=== PATIENT | female | born 1995 | race Caucasian/White ===

== ENCOUNTER 2017-01-27 23:56 | Emergency (ER) | payer SELFPAY ==
[~2017-01-27] VITALS: Ht 160 cm; Wt 72.6 kg
[2017-01-28] MEDS ORDERED: IV NORMAL SALINE 1000ML BAG 1,000 ML IV ONE (00:15)
[2017-01-28] MEDS ORDERED: ONDANSETRON PF 4 MG/2 ML VIAL. IV ONE (00:15)
--- NOTE | 2017-01-28 00:19 | PHYS DOC ---
Adult General Chief Complaint Chief Complaint: NAUSEA/VOMITING/DIARRHA HPI HPI Patient is a 22 year old female whose only past medical history she states to be asthma was in her usual state of health until last night when she went out drinking and now presents with the nausea and vomiting and feeling dehydrated. No sick contacts. No fevers, rashes, recent illnesses. Review of Systems Review of Systems Constitutional: Denies fever or chills [] HENT: Denies nasal congestion or sore throat [] Respiratory: Denies cough or shortness of breath [] Cardiovascular: No chest pain GI: Denies abdominal pain. He is to nausea and nonbloody vomitus : Denies dysuria or hematuria [] Musculoskeletal: Denies back pain or joint pain [] Integument: Denies rash or skin lesions [] Neurologic: Denies headache, focal weakness or sensory changes [] Current Medications Current Medications Current Medications Medications (Trade) Dose Ordered Sig/Jack Start Time Stop Time Status Last Admin Dose Admin Ondansetron HCl (Zofran) 4 mg 1X ONCE 01/28/17 00:15 01/28/17 00:16 DC 01/28/17 00:20 4 MG Sodium Chloride 1,000 ml @ 1,000 mls/hr 1X ONCE 01/28/17 00:15 01/28/17 01:14 DC 01/28/17 00:20 1,000 MLS/HR Allergies Allergies Allergies Coded Allergies Type Severity Reaction Last Updated Verified No Known Drug Allergies 01/28/17 No Physical Exam Physical Exam Constitutional: Well developed, well nourished, mild distress, non-toxic appearance. [] HENT: Normocephalic, atraumatic, oropharynx dry, no oral exudates, nose normal. [] Eyes: EOMI, conjunctiva normal, no discharge. [] Neck: Normal range of motion, trachea midline Cardiovascular:Heart rate regular rhythm, no murmur, normal perfusion, no vascular insufficiency Lungs & Thorax: Bilateral breath sounds clear to auscultation, no tachypnea Abdomen: Bowel sounds normal, soft, no tenderness, no masses, no pulsatile masses. [] Skin: Warm, dry, no erythema, no rash. [] Back: Normal range of motion. Extremities: No tenderness, ROM intact, no edema. [] Neurologic: Alert and oriented X 3, normal motor function, no focal deficits noted. [] Psychologic: Affect normal, judgement normal, mood normal. [] Current Patient Data Vital Signs Vital Signs Date Time Temp Pulse Resp B/P (MAP) Pulse Ox O2 Delivery O2 Flow Rate FiO2 01/28/17 00:11 98.3 76 18 143/85 (104) 100 Room Air 98.3 Lab Values Laboratory Tests Test 01/28/17 00:27 POC Hemoglobin 14.3 g/dL (12-15) POC Hematocrit 42 % (36-40) H POC Sodium 140 mmol/L (135-145) POC Potassium 3.4 mmol/L (3.5-5.0) L POC Chloride 105 mmol/L (98-110) POC Total CO2 20 mmol/L (23-32) L Anion Gap 20 mmol/L (6-14) H POC Blood Urea Nitrogen 11 mg/dL (8-26) POC Creatinine 0.6 mg/dL (0.5-1.4) Glucose Level 149 mg/dL (70-99) H POC Ionized Calcium (Tova) 1.16 mmol/L (1.13-1.32) Laboratory Tests 01/28/17 00:27 EKG EKG [] Radiology/Procedures Radiology/Procedures [] Course & Med Decision Making Course & Med Decision Making Pertinent Labs and Imaging studies reviewed. (See chart for details) discussed with the patient [id number] patient resting comfortably, no distress, no vomiting. Patient states she feels improved and is ready to go home. [] Dragon Disclaimer Dragon Disclaimer This electronic medical record was generated, in whole or in part, using a voice recognition dictation system. Departure Departure Impression: Primary Impression: Vomiting Additional Impression: Dehydration Disposition: 01 HOME, SELF-CARE Condition: STABLE Patient Instructions: Dehydration, Adult, [id number], Nausea and Vomiting Additional Instructions: if your symptoms worsen or new concerning symptoms please see your doctor immediately or return to the ED for further evaluation. Scripts Ondansetron Hcl (ZOFRAN) 4 Mg Tablet 1 TAB PO Q8HRS, #8 TAB Prov: Yeyo BARLOW MD 01/28/17 Problem Qualifiers Yeyo BARLOW MD Jan 28, 2017 00:19
[2017-01-28 00:47] LABS: POTASSIUM ISTAT 3.4 mmol/L (3.5-5.0)
[2017-01-28 01:08] VITALS: BP 119/86
[2017-01-28] MEDS ORDERED: ONDA4TAB7 PO (01:31)
== END 2017-01-28 01:35 | disposition home or self-care (01) ==
LOC: ER 23:56
DX: E86.0 Dehydration (principal); R11.2 Nausea with vomiting, unspecified
CPT/HCPCS: 36415; 80047; 96361; 96374; 99284; J2405; J7030

== ENCOUNTER 2017-10-02 01:51 | Emergency (ER) | payer OTHER ==
[2017-10-02] MEDS: IV NORMAL SALINE 500ML BAG 500 ML IV (03:43)
[2017-10-02] MEDS: diphenhydrAMINE 50 MG/ML VIAL IVP (03:59)
[2017-10-02] MEDS: PROCHLORPERAZINE 10 MG/2 ML VIAL. IV (03:59)
[2017-10-02] MEDS: DEXAMETHASONE SOD PHOS 4 MG/ML VIAL IV (03:59)
== END 2017-10-02 04:59 | disposition home or self-care (01) ==
LOC: ER 01:51
DX: G43.909 Migraine, unspecified, not intractable, without status migrainosus (principal); J45.909 Unspecified asthma, uncomplicated; F12.10 Cannabis abuse, uncomplicated; F10.10 Alcohol abuse, uncomplicated
CPT/HCPCS: 96361; 96374; 96375; 99284-25; J0780; J1100; J1200; J7040

== ENCOUNTER 2017-10-20 20:33 | Emergency (ER) | payer OTHER ==
[2017-10-20 21:19] LABS: ADD MAN DIFF? NO
[2017-10-20 21:21] LABS: BASO % 1 % (0-3); BILIRUBIN,URINE NEGATIVE (NEG); CLARITY,URINE TURBID; COLOR,URINE YELLOW; EOS # 0.1 x10^3/uL (0.0-0.7); EOS % 2 % (0-3); GLUCOSE,URINE NEGATIVE (NEG); HEMATOCRIT 35.6 % (36.0-47.0); HEMOGLOBIN 12.3 g/dL (12.0-15.5); LYMPH # 1.3 x10^3/uL (1.0-4.8); LYMPH % 24 % (24-48); MEAN CORPUSCULAR HEMOGLOBIN 31 pg (25-35); MEAN CORPUSCULAR HGB CONC 35 g/dL (31-37); MEAN CORPUSCULAR VOLUME 88 fL (79-100); MONO # 0.6 x10^3/uL (0.0-1.1); MONO % 11 % (0-9); NEUT # 3.2 x10^3uL (1.8-7.7); NEUT % 62 % (31-73); NITRITE,URINE NEGATIVE (NEG); PLATELET COUNT 268 x10^3/uL (140-400); PROTEIN,URINE NEGATIVE (NEG-TRACE); RED BLOOD COUNT 4.03 x10^6/uL (3.50-5.40); RED CELL DISTRIBUTION WIDTH 13.3 % (11.5-14.5); UROBILINOGEN,URINE 0.2 mg/dL (0.2 mg/dL); WHITE BLOOD COUNT 5.2 x10^3/uL (4.0-11.0)
[2017-10-20 21:34] LABS: ANION GAP 6 (6-14); BLOOD UREA NITROGEN 12 mg/dL (7-20); BUN/CREATININE RATIO 13 (6-20); CALCIUM 9.2 mg/dL (8.5-10.1); CARBON DIOXIDE 27 mmol/L (21-32); CHLORIDE 107 mmol/L (98-107); CREATININE 0.9 mg/dL (0.6-1.0); GLUCOSE 109 mg/dL (70-99); POTASSIUM 3.6 mmol/L (3.5-5.1); SODIUM 140 mmol/L (136-145)
[2017-10-20 21:40] LABS: ALBUMIN 3.6 g/dL (3.4-5.0); ALK PHOS 75 U/L (46-116); ALT (SGPT) 38 U/L (14-59); AST (SGOT) 27 U/L (15-37); LIPASE 106 U/L (73-393); TOTAL BILIRUBIN 0.3 mg/dL (0.2-1.0); TOTAL PROTEIN 7.1 g/dL (6.4-8.2)
[2017-10-20 21:48] LABS: AMORPHOUS SEDIMENT,UR PRESENT /HPF; BACTERIA,URINE 0 /HPF (0-FEW); RBC,URINE 0 /HPF (0-2); SQUAMOUS EPITHELIAL CELL,UR MOD /LPF; WBC,URINE 0 /HPF (0-4)
[2017-10-20] MEDS: ONDANSETRON PF 4 MG/2 ML VIAL. IV (22:15)
[2017-10-20] MEDS: IV NORMAL SALINE 1000ML BAG 1,000 ML IV (22:15)
[2017-10-23 14:34] LABS: CHLAMYDIA PROBE Negative (Negative); GC PROBE Negative (Negative)
== END 2017-10-21 00:05 | disposition home or self-care (01) ==
LOC: ER 10-21 00:05
DX: O03.9 Complete or unspecified spontaneous abortion without complication (principal); O99.511 Diseases of the respiratory system complicating pregnancy, first trimester; O99.321 Drug use complicating pregnancy, first trimester; F12.10 Cannabis abuse, uncomplicated; Z3A.01 Less than 8 weeks gestation of pregnancy
CPT/HCPCS: 36415; 76801; 80053; 81001; 83690; 84702; 85025; 87491; 87591; 96361; 96374; 99285-25; J2405; J7030; Q0111

== ENCOUNTER 2017-11-20 01:33 | Emergency (ER) | payer OTHER ==
[2017-11-20 02:07] LABS: NEG OBC UR NEG; POS OBC UR POS; U PREG PATIENT NEGATIVE (NEG)
[2017-11-20] MEDS ORDERED: diphenhydrAMINE 50 MG/ML VIAL IVP (02:30)
[2017-11-20] MEDS ORDERED: IV NORMAL SALINE 1000ML BAG 1,000 ML IV (02:30)
[2017-11-20] MEDS ORDERED: KETOROLAC 15 MG/ML VIAL. IV (02:30)
[2017-11-20] MEDS ORDERED: PROCHLORPERAZINE 10 MG/2 ML VIAL. IV (02:30)
== END 2017-11-20 03:35 | disposition home or self-care (01) ==
LOC: ER 01:33
DX: G43.909 Migraine, unspecified, not intractable, without status migrainosus (principal); R11.10 Vomiting, unspecified; J45.909 Unspecified asthma, uncomplicated
CPT/HCPCS: 81025; 99283

== ENCOUNTER 2018-01-07 12:38 | Emergency (ER) | payer OTHER ==
[2018-01-07 13:30] LABS: ADD MAN DIFF? NO
[2018-01-07] MEDS: PROCHLORPERAZINE 10 MG/2 ML VIAL. IV (13:30)
[2018-01-07] MEDS: IV NORMAL SALINE 1000ML BAG 1,000 ML IV (13:30)
[2018-01-07] MEDS: ONDANSETRON PF 4 MG/2 ML VIAL. IV (13:30)
[2018-01-07 13:32] LABS: URINE HCG POC HCG NEGATIVE (Negative)
[2018-01-07 13:37] LABS: BASO % 0 % (0-3); EOS % 0 % (0-3); HEMATOCRIT 43.7 % (36.0-47.0); HEMOGLOBIN 14.7 g/dL (12.0-15.5); LYMPH # 1.5 x10^3/uL (1.0-4.8); LYMPH % 10 % (24-48); MEAN CORPUSCULAR HEMOGLOBIN 29 pg (25-35); MEAN CORPUSCULAR HGB CONC 34 g/dL (31-37); MEAN CORPUSCULAR VOLUME 87 fL (79-100); MONO % 7 % (0-9); NEUT # 11.7 x10^3uL (1.8-7.7); NEUT % 83 % (31-73); PLATELET COUNT 360 x10^3/uL (140-400); RED BLOOD COUNT 5.01 x10^6/uL (3.50-5.40); RED CELL DISTRIBUTION WIDTH 13.7 % (11.5-14.5); WHITE BLOOD COUNT 14.2 x10^3/uL (4.0-11.0)
[2018-01-07 13:40] LABS: ANION GAP 11 (6-14); BLOOD UREA NITROGEN 12 mg/dL (7-20); BUN/CREATININE RATIO 11 (6-20); CALCIUM 9.3 mg/dL (8.5-10.1); CARBON DIOXIDE 27 mmol/L (21-32); CHLORIDE 97 mmol/L (98-107); CREATININE 1.1 mg/dL (0.6-1.0); GFR 62.7; GLUCOSE 159 mg/dL (70-99); POTASSIUM 3.1 mmol/L (3.5-5.1); SODIUM 135 mmol/L (136-145)
[2018-01-07 13:41] LABS: BILIRUBIN,URINE SMALL (NEG); CLARITY,URINE CLEAR; COLOR,URINE AMBER; GLUCOSE,URINE NEGATIVE (NEG); NEG OBC SER NEG; NITRITE,URINE NEGATIVE (NEG); POS OBC SER POS; PREG TEST PT QUAL NEGATIVE (NEG); PROTEIN,URINE 100 mg/dL (NEG-TRACE)
[2018-01-07 13:46] LABS: ALBUMIN 4.7 g/dL (3.4-5.0); ALBUMIN/GLOBULIN RATIO 1.3 (1.0-1.7); ALK PHOS 79 U/L (46-116); ALT (SGPT) 28 U/L (14-59); AST (SGOT) 54 U/L (15-37); LIPASE 92 U/L (73-393); TOTAL BILIRUBIN 0.6 mg/dL (0.2-1.0); TOTAL PROTEIN 8.2 g/dL (6.4-8.2)
[2018-01-07 13:48] LABS: BACTERIA,URINE MODERATE /HPF (0-FEW); RBC,URINE 0 /HPF (0-2); SQUAMOUS EPITHELIAL CELL,UR MANY /LPF
[2018-01-07] MEDS: PROMETHAZINE IM 25 MG/ML VIAL IM (14:46)
[2018-01-07] MEDS: MORPHINE SULFATE 4 MG/ML DISP.SYRIN. IV (15:08)
== END 2018-01-07 16:49 | disposition home or self-care (01) ==
LOC: ER 12:38
DX: K52.9 Noninfective gastroenteritis and colitis, unspecified (principal); J45.909 Unspecified asthma, uncomplicated; G43.909 Migraine, unspecified, not intractable, without status migrainosus
CPT/HCPCS: 36415; 74022; 80053; 81001; 81025; 83690; 84703; 85025; 96361; 96372; 96374; 96375; 99285-25; J0780; J2270; J2405; J2550; J7030

== ENCOUNTER 2018-02-23 10:01 | Emergency (ER) | payer OTHER ==
[~2018-02-23] VITALS: Ht 160 cm; Wt 79.4 kg
[~2018-02-23 10:01] MED LIST: ONDA4TAB7 PO; PROM25TA10 PO
[2018-02-23] MEDS ORDERED: IV NORMAL SALINE 1000ML BAG 1,000 ML IV ONE (10:30)
[2018-02-23 10:34] LABS: BASO # 0.1 x10^3/uL (0.0-0.2); BASO % 1 % (0-3); EOS # 0.2 x10^3/uL (0.0-0.7); EOS % 3 % (0-3); HEMATOCRIT 41.8 % (36.0-47.0); HEMOGLOBIN 14.1 g/dL (12.0-15.5); LYMPH # 1.4 x10^3/uL (1.0-4.8); LYMPH % 24 % (24-48); MEAN CORPUSCULAR HEMOGLOBIN 30 pg (25-35); MEAN CORPUSCULAR HGB CONC 34 g/dL (31-37); MEAN CORPUSCULAR VOLUME 88 fL (79-100); MONO # 0.4 x10^3/uL (0.0-1.1); MONO % 7 % (0-9); NEUT # 3.8 x10^3uL (1.8-7.7); NEUT % 65 % (31-73); PLATELET COUNT 257 x10^3/uL (140-400); RED BLOOD COUNT 4.74 x10^6/uL (3.50-5.40); RED CELL DISTRIBUTION WIDTH 13.6 % (11.5-14.5); WHITE BLOOD COUNT 5.8 x10^3/uL (4.0-11.0)
[2018-02-23 10:45] LABS: CALCIUM 9.1 mg/dL (8.5-10.1); CREATININE 1.1 mg/dL (0.6-1.0); GFR 62.1; POTASSIUM 4.1 mmol/L (3.5-5.1)
[2018-02-23 10:52] LABS: ALBUMIN 3.9 g/dL (3.4-5.0); ALBUMIN/GLOBULIN RATIO 1.3 (1.0-1.7); TOTAL BILIRUBIN 0.3 mg/dL (0.2-1.0); TOTAL PROTEIN 6.9 g/dL (6.4-8.2)
[2018-02-23 10:57] LABS: BILIRUBIN,URINE NEGATIVE (NEG); CLARITY,URINE CLEAR; COLOR,URINE YELLOW; NITRITE,URINE NEGATIVE (NEG); PROTEIN,URINE 100 mg/dL (NEG-TRACE); UROBILINOGEN,URINE 0.2 mg/dL (0.2 mg/dL)
[2018-02-23 11:09] LABS: AMPHETAMINE/METHAMPHETAMINE NEG (NEG); BARBITURATES NEG (NEG); BENZODIAZEPINES NEG (NEG); CANNABINOIDS POS (NEG); COCAINE NEG (NEG); METHADONE NEG (NEG); OPIATES NEG (NEG); PHENCYCLIDINE NEG (NEG)
--- NOTE | 2018-02-23 11:20 | RAD ---
EXAM: Head CT without contrast. HISTORY: Seizure. TECHNIQUE: Computed tomographic images of the head were obtained without contrast. *One or more of the following individualized dose reduction techniques were utilized for this examination: 1. Automated exposure control. 2. Adjustment of the mA and/or kV according to patient size. 3. Use of iterative reconstruction technique. COMPARISON: None. FINDINGS: There is no acute or subacute extra-axial or intraparenchymal hemorrhage. There is no mass effect or midline shift. There is no hydrocephalus. The hooper-white matter differentiation pattern is intact. The visualized portions of the orbits, paranasal sinuses and mastoid air cells are unremarkable. No suspicious calvarial lesion is seen. IMPRESSION: No acute intracranial findings. Electronically signed by: Veronica Andrade MD (02/23/2018 11:17 AM) [facility]
[2018-02-23 11:23] LABS: BACTERIA,URINE FEW /HPF (0-FEW); HYALINE CASTS, URINE OCCASIONAL /HPF; RBC,URINE RARE /HPF (0-2); SQUAMOUS EPITHELIAL CELL,UR FEW /LPF; WBC,URINE RARE /HPF (0-4)
[2018-02-23] MEDS ORDERED: ONDANSETRON PF 4 MG/2 ML VIAL. ONE (11:38)
--- NOTE | 2018-02-23 11:56 | PHYS DOC ---
Past Medical History Past Medical History: Asthma, Migraines Past Surgical History: No Surgical History, Other Alcohol Use: Occasionally Drug Use: Marijuana Adult General Chief Complaint Chief Complaint: SEIZURE HPI HPI Patient is a 23 year old female who is presenting with seizure. Apparently she had a witnessed seizure lasting about 10 minutes. She did have tongue biting she had tonic-clonic activity and a postictal period apparently she did not hit her head. Additional history was obtained that she knew something was coming she sort of felt a little short of breath or had an aura of some kind before the seizure. This was witnessed by her boyfriend she did smoke marijuana yesterday. She denies other drug use he says she does not drink alcohol heavily she has not been sick recently no fever no chest pain no abdominal pain no other medical history never had a seizure before. Review of Systems Review of Systems Constitutional: Denies fever or chills [] Eyes: Denies change in visual acuity, redness, or eye pain [] HENT: Denies nasal congestion or sore throat [] Respiratory: Denies cough or shortness of breath [] Cardiovascular: No additional information not addressed in HPI [] Integument: Denies rash or skin lesions [] Neurologic:HEADACHE Endocrine: Denies polyuria or polydipsia [] All other systems were reviewed and found to be within normal limits, except as documented in this note. Current Medications Current Medications Current Medications Medications (Trade) Dose Ordered Sig/Jack Start Time Stop Time Status Last Admin Dose Admin Lorazepam (Ativan) 1 mg 1X ONCE 02/23/18 10:30 02/23/18 10:31 DC 02/23/18 11:35 1 MG Ondansetron HCl (Zofran) 4 mg STK-MED ONCE 02/23/18 11:38 02/23/18 11:39 DC Sodium Chloride 1,000 ml @ 1,000 mls/hr 1X ONCE 02/23/18 10:30 02/23/18 11:29 DC 02/23/18 11:30 1,000 MLS/HR Allergies Allergies Allergies Coded Allergies Type Severity Reaction Last Updated Verified No Known Drug Allergies 01/28/17 No Physical Exam Physical Exam Constitutional: Well developed, well nourished, no acute distress, non-toxic appearance. [] HENT: Normocephalic, atraumatic, bilateral external ears normal, oropharynx moist, no oral exudates, nose normal. [] Eyes: PERRLA, EOMI, conjunctiva normal, no discharge. [] Neck: Normal range of motion, no tenderness, supple, no stridor. [] Cardiovascular:Heart rate regular rhythm, no murmur [] Lungs & Thorax: Bilateral breath sounds clear to auscultation [] Abdomen: Bowel sounds normal, soft, no tenderness, no masses, no pulsatile masses. [] Skin: Warm, dry, no erythema, no rash. [] Back: No tenderness, no CVA tenderness. [] Extremities: No tenderness, no cyanosis, no clubbing, ROM intact, no edema. [] Neurologic: Alert and oriented X 3, normal motor function, normal sensory function, no focal deficits noted. [] Psychologic: Affect normal, judgement normal, mood normal. [] Current Patient Data Vital Signs Vital Signs Date Time Temp Pulse Resp B/P (MAP) Pulse Ox O2 Delivery O2 Flow Rate FiO2 02/23/18 10:01 97.8 80 14 120/73 (89) 99 Room Air 97.8 Lab Values Laboratory Tests Test 02/23/18 10:20 02/23/18 10:40 02/23/18 10:45 White Blood Count 5.8 x10^3/uL (4.0-11.0) Red Blood Count 4.74 x10^6/uL (3.50-5.40) Hemoglobin 14.1 g/dL (12.0-15.5) Hematocrit 41.8 % (36.0-47.0) Mean Corpuscular Volume 88 fL (79-100) Mean Corpuscular Hemoglobin 30 pg (25-35) Mean Corpuscular Hemoglobin Concent 34 g/dL (31-37) Red Cell Distribution Width 13.6 % (11.5-14.5) Platelet Count 257 x10^3/uL (140-400) Neutrophils (%) (Auto) 65 % (31-73) Lymphocytes (%) (Auto) 24 % (24-48) Monocytes (%) (Auto) 7 % (0-9) Eosinophils (%) (Auto) 3 % (0-3) Basophils (%) (Auto) 1 % (0-3) Neutrophils # (Auto) 3.8 x10^3uL (1.8-7.7) Lymphocytes # (Auto) 1.4 x10^3/uL (1.0-4.8) Monocytes # (Auto) 0.4 x10^3/uL (0.0-1.1) Eosinophils # (Auto) 0.2 x10^3/uL (0.0-0.7) Basophils # (Auto) 0.1 x10^3/uL (0.0-0.2) Maternal Serum HCG Beta Subunit < 1 mIU/mL (0-5) Sodium Level 134 mmol/L (136-145) L Potassium Level 4.1 mmol/L (3.5-5.1) Chloride Level 105 mmol/L (98-107) Carbon Dioxide Level 20 mmol/L (21-32) L Anion Gap 9 (6-14) Blood Urea Nitrogen 13 mg/dL (7-20) Creatinine 1.1 mg/dL (0.6-1.0) H Estimated GFR (Cockcroft-Gault) 62.1 BUN/Creatinine Ratio 12 (6-20) Glucose Level 175 mg/dL (70-99) H Calcium Level 9.1 mg/dL (8.5-10.1) Total Bilirubin 0.3 mg/dL (0.2-1.0) Aspartate Amino Transferase (AST) 11 U/L (15-37) L Alanine Aminotransferase (ALT) 17 U/L (14-59) Alkaline Phosphatase 70 U/L (46-116) Total Protein 6.9 g/dL (6.4-8.2) Albumin 3.9 g/dL (3.4-5.0) Albumin/Globulin Ratio 1.3 (1.0-1.7) Ethyl Alcohol Level < 10 mg/dL (0-10) Urine Collection Type Void Urine Color Yellow Urine Clarity Clear Urine pH 5.0 Urine Specific [place] 1.020 Urine Protein 100 mg/dL (NEG-TRACE) Urine Glucose (UA) Negative mg/dL (NEG) Urine Ketones (Stick) Negative mg/dL (NEG) Urine Blood Negative (NEG) Urine Nitrite Negative (NEG) Urine Bilirubin Negative (NEG) Urine Urobilinogen Dipstick 0.2 mg/dL (0.2 mg/dL) Urine Leukocyte Esterase Negative (NEG) Urine RBC Rare /HPF (0-2) Urine WBC Rare /HPF (0-4) Urine Squamous Epithelial Cells Few /LPF Urine Bacteria Few /HPF (0-FEW) Urine Hyaline Casts Occasional /HPF Urine Mucus Slight /LPF Urine Opiates Screen Neg (NEG) Urine Methadone Screen Neg (NEG) Urine Barbiturates Neg (NEG) Urine Phencyclidine Screen Neg (NEG) Urine Amphetamine/Methamphetamine Neg (NEG) Urine Benzodiazepines Screen Neg (NEG) Urine Cocaine Screen Neg (NEG) Urine Cannabinoids Screen Pos (NEG) Urine Ethyl Alcohol N (NEG) POC Urine HCG, Qualitative Hcg negative (Negative) Laboratory Tests 02/23/18 10:20 Laboratory Tests 02/23/18 10:20 EKG EKG [] Radiology/Procedures Radiology/Procedures [] Impressions: TECHNIQUE: Computed tomographic images of the head were obtained without contrast. *One or more of the following individualized dose reduction techniques were utilized for this examination: 1. Automated exposure control. 2. Adjustment of the mA and/or kV according to patient size. 3. Use of iterative reconstruction technique. COMPARISON: None. FINDINGS: There is no acute or subacute extra-axial or intraparenchymal hemorrhage. There is no mass effect or midline shift. There is no hydrocephalus. The hooper-white matter differentiation pattern is intact. The visualized portions of the orbits, paranasal sinuses and mastoid air cells are unremarkable. No suspicious calvarial lesion is seen. IMPRESSION: No acute intracranial findings. Electronically signed by: Veronica Andrade MD (02/23/2018 11:17 AM) [facility] Course & Med Decision Making Course & Med Decision Making Pertinent Labs and Imaging studies reviewed. (See chart for details) []23-year-old female with new onset seizure unclear etiology. She does have marijuana on a U tox perhaps this was a synthetic type of marijuana she denies heavy alcohol use she is well-appearing and neurologically intact in the emergency department. I did instruct her of the importance of not driving at all until she is seen and cleared by a neurologist which could take several months. She is aware of this. I gave her the follow-up number for neurologist and recommended she follow-up within 1 week. Patient is not no signs of infection blood work is essentially unremarkable. CT head was negative acute patient is feeling better at the time of discharge. Dragon Disclaimer Dragon Disclaimer This electronic medical record was generated, in whole or in part, using a voice recognition dictation system. Departure Departure Impression: Primary Impression: Seizure Disposition: 01 HOME, SELF-CARE Condition: IMPROVED Referrals: KING SORIANO MD Patient Instructions: Seizure, Adult, [id number] Additional Instructions: YOU ARE ABSOULTELY NOT ALLOWED TO DRIVE UNTIL SEEN AND CLEARED BY A NEUROLOGIST. DEMARCUS PARIKH MD Feb 23, 2018 11:56
[2018-02-23] MEDS ORDERED: ONDANSETRON PF 4 MG/2 ML VIAL. IV ONE (12:00)
[2018-02-23 12:40] VITALS: BP 120/83
== END 2018-02-23 12:43 | disposition home or self-care (01) ==
LOC: ER 10:01
DX: R56.9 Unspecified convulsions (principal); J45.909 Unspecified asthma, uncomplicated
CPT/HCPCS: 36415; 70450; 80053; 80307; 81001; 81025; 84702; 85025; 96374; 96375; 99285; G0480; J2060; J2405; J7030; G0479

== ENCOUNTER 2018-02-24 14:33 | Inpatient (IN) | payer OTHER ==
[~2018-02-24] VITALS: Ht 160 cm; Wt 80.7 kg
--- NOTE | 2018-02-24 15:05 | PHYS DOC ---
Past Medical History Past Medical History: Asthma, Migraines Past Surgical History: No Surgical History, Other Alcohol Use: Occasionally Drug Use: Marijuana Adult General Chief Complaint Chief Complaint: SEIZURE HPI HPI Patient is a 23 year old female who presents with seizures. EMS states that patient called 911 and came to the door and then started having seizure-like activity. EMS states the patient became very combative and they gave her for said and restrained her. Patient was seen here yesterday for seizures and discharged home. From what is seen for patient's past medical history patient has a history of seizures but takes no medications. Review of Systems Review of Systems Constitutional: Denies fever or chills [] Eyes: Denies change in visual acuity, redness, or eye pain [] HENT: Denies nasal congestion or sore throat [] Respiratory: Denies cough or shortness of breath [] Cardiovascular: No additional information not addressed in HPI [] GI: Denies abdominal pain, nausea, vomiting, bloody stools or diarrhea [] : Denies dysuria or hematuria [] Musculoskeletal: Denies back pain or joint pain [] Integument: Denies rash or skin lesions [] Neurologic: Seizure. Denies headache, focal weakness or sensory changes [] Endocrine: Denies polyuria or polydipsia [] All other systems were reviewed and found to be within normal limits, except as documented in this note. Current Medications Current Medications Allergies Allergies Allergies Coded Allergies Type Severity Reaction Last Updated Verified No Known Drug Allergies 01/28/17 No Physical Exam Physical Exam Constitutional: Well developed, well nourished, no acute distress, non-toxic appearance. [] HENT: Normocephalic, atraumatic, bilateral external ears normal, oropharynx moist, no oral exudates, nose normal. [] Eyes: PERRLA, EOMI, conjunctiva normal, no discharge. [] Neck: Normal range of motion, no tenderness, supple, no stridor. [] Cardiovascular:Heart rate regular rhythm, no murmur [] Lungs & Thorax: Bilateral breath sounds clear to auscultation [] Abdomen: Bowel sounds normal, soft, no tenderness, no masses, no pulsatile masses. [] Skin: Warm, dry, no erythema, no rash. [] Back: No tenderness, no CVA tenderness. [] Extremities: No tenderness, no cyanosis, no clubbing, ROM intact, no edema. [] Neurologic: Alert and oriented X 3, normal motor function, normal sensory function, no focal deficits noted. [] Psychologic: Affect normal, judgement normal, mood normal. sleeping but when awakened the patient opens her eye and shrugs her shoulders when asked a question. [] Current Patient Data Vital Signs Vital Signs Date Time Temp Pulse Resp B/P (MAP) Pulse Ox O2 Delivery O2 Flow Rate FiO2 02/24/18 16:00 96 14 97 02/24/18 14:38 99.5 126/59 (81) Room Air 99.5 Lab Values Laboratory Tests Test 02/24/18 14:20 02/24/18 14:45 Ammonia 34 mcmol/L (11-34) White Blood Count 9.4 x10^3/uL (4.0-11.0) Red Blood Count 4.36 x10^6/uL (3.50-5.40) Hemoglobin 13.1 g/dL (12.0-15.5) Hematocrit 38.4 % (36.0-47.0) Mean Corpuscular Volume 88 fL (79-100) Mean Corpuscular Hemoglobin 30 pg (25-35) Mean Corpuscular Hemoglobin Concent 34 g/dL (31-37) Red Cell Distribution Width 13.8 % (11.5-14.5) Platelet Count 263 x10^3/uL (140-400) Neutrophils (%) (Auto) 78 % (31-73) H Lymphocytes (%) (Auto) 16 % (24-48) L Monocytes (%) (Auto) 5 % (0-9) Eosinophils (%) (Auto) 1 % (0-3) Basophils (%) (Auto) 0 % (0-3) Neutrophils # (Auto) 7.3 x10^3uL (1.8-7.7) Lymphocytes # (Auto) 1.5 x10^3/uL (1.0-4.8) Monocytes # (Auto) 0.4 x10^3/uL (0.0-1.1) Eosinophils # (Auto) 0.1 x10^3/uL (0.0-0.7) Basophils # (Auto) 0.0 x10^3/uL (0.0-0.2) Sodium Level 139 mmol/L (136-145) Potassium Level 3.6 mmol/L (3.5-5.1) Chloride Level 105 mmol/L (98-107) Carbon Dioxide Level 21 mmol/L (21-32) Anion Gap 13 (6-14) Blood Urea Nitrogen 12 mg/dL (7-20) Creatinine 1.0 mg/dL (0.6-1.0) Estimated GFR (Cockcroft-Gault) 69.3 BUN/Creatinine Ratio 12 (6-20) Glucose Level 175 mg/dL (70-99) H Lactic Acid Level 5.3 mmol/L (0.4-2.0) *H Calcium Level 8.8 mg/dL (8.5-10.1) Total Bilirubin 0.4 mg/dL (0.2-1.0) Aspartate Amino Transferase (AST) 15 U/L (15-37) Alanine Aminotransferase (ALT) 17 U/L (14-59) Alkaline Phosphatase 68 U/L (46-116) Creatine Kinase 182 U/L (26-192) Total Protein 6.8 g/dL (6.4-8.2) Albumin 3.8 g/dL (3.4-5.0) Albumin/Globulin Ratio 1.3 (1.0-1.7) Serum Test, Qualitative Negative (NEG) Ethyl Alcohol Level < 10 mg/dL (0-10) Laboratory Tests 02/24/18 14:45 Laboratory Tests 02/24/18 14:45 EKG EKG Sinus Rhythm Interpretation Time: [address] Herman Radiology/Procedures Radiology/Procedures CT head, Chest x ray[] Impressions: [facility] [address] [place] [id number] IMAGING REPORT Signed PATIENT: SONY MARQUEZ ACCOUNT: [id number] : 1995 LOCATION: ER AGE: 23 SEX: F EXAM STATUS: REG ER ORD. PHYSICIAN: ANG FLOWERS APRN REASON: seizure PROCEDURE: CT HEAD WO CONTRAST CT HEAD INDICATION: SEIZURES, X2 DAYS
PRIOR SENT COMPARISON: None Available. TECHNIQUE: 5 mm contiguous axial images were obtained from the skull base to the vertex in both bone and soft tissue algorithm. Exposure: One or more of the following individualized dose reduction techniques were utilized for this examination: 1. Automated exposure control 2. Adjustment of the mA and/or kV according to patient size 3. Use of iterative reconstruction technique FINDINGS: No abnormal attenuation within the brain parenchyma. No evidence of acute intracranial hemorrhage. No extra-axial fluid collections. No mass effect or midline shift. Ventricular size is appropriate. Basal cisterns are patent. No fractures identified.Jackson-white differentiation is preserved.Globes and orbits are within normal limits. Paranasal sinuses and mastoid air cells are clear. IMPRESSION: No acute intracranial findings. Electronically signed by: Michael Esparza MD (02/24/2018 3:54 PM) [id number] DICTATED and SIGNED BY: MICHAEL ESPARZA MD DATE: 02/24/18 1550 [facility] [address] [place] [address] IMAGING REPORT Signed PATIENT: SONY MARQUEZ ACCOUNT: [id number] : 1995 LOCATION: ER AGE: 23 SEX: F EXAM STATUS: REG ER ORD. PHYSICIAN: ANG FLOWERS APRN REASON: seizure, AMS PROCEDURE: PORTABLE CHEST 1V EXAM: Chest, single view. HISTORY: Seizure. COMPARISON: None. FINDINGS: A frontal view of the chest is obtained. There is no infiltrate, pleural effusion or pneumothorax. The heart is normal in size. IMPRESSION: No acute pulmonary finding. Electronically signed by: Veronica Goins MD (02/24/2018 3:43 PM) [id number] DICTATED and SIGNED BY: VERONICA GOINS MD DATE: 02/24/18 1542 Course & Med Decision Making Course & Med Decision Making Upon examination patient's lungs are clear to auscultation. Patient has no abdominal tenderness. Patient does wake up to her name or pain and makes eye contact. The patient was asked if she had a seizure today she shrugged her shoulders. When patient was asked if she was in any pain she opened her eyes and looked at me and shrugged her shoulders again. Patient is drowsy from Versed that EMS gave her for being combative. Patient was here yesterday for seizures. When patient came in today she had a bracelet from [facility] on her wrist. When looking at patient's past visits here she does not have a history of seizures nor does she have a history of any seizure medications. I will CT her head and this ED visit and do a chest x-ray. CT head and Chest x ray show no acute findings. Lactic acid is 5.3. Patient will be admitted to the hospital for further evaluation. Patient is being admitted by Dr. Mendoza and will be, have a consult with neurology. Nursing staff has still been unable to collect urine from the patient for urine catheter. Patient does respond to pain able her eyes and respond to her name. Patient does yell out in pain but she does not speak when asked a question. Vital signs stable. [ER PHYSICIAN ATTENDING NOTE: I have personally seen and examined the patient, and agree with the history, physical exam, and plan, as documented by mid-level provider.] Dragon Disclaimer Dragon Disclaimer This electronic medical record was generated, in whole or in part, using a voice recognition dictation system. Departure Departure Impression: Primary Impression: Altered mental status Additional Impression: Seizure Disposition: ADMITTED INPATIENT Admitting Physician: Britton Mendoza Condition: STABLE Referrals: NO PCP (PCP) Problem Qualifiers Primary Impression: Altered mental status Altered mental status type: unspecified Qualified Codes: R41.82 - Altered mental status, unspecified ANG FLOWERS APRN Feb 24, 2018 15:05 KENN HERMAN MD Feb 24, 2018 18:33
[2018-02-24 15:09] LABS: BASO % 0 % (0-3); EOS # 0.1 x10^3/uL (0.0-0.7); EOS % 1 % (0-3); HEMATOCRIT 38.4 % (36.0-47.0); HEMOGLOBIN 13.1 g/dL (12.0-15.5); LYMPH # 1.5 x10^3/uL (1.0-4.8); LYMPH % 16 % (24-48); MEAN CORPUSCULAR HEMOGLOBIN 30 pg (25-35); MEAN CORPUSCULAR HGB CONC 34 g/dL (31-37); MEAN CORPUSCULAR VOLUME 88 fL (79-100); MONO # 0.4 x10^3/uL (0.0-1.1); MONO % 5 % (0-9); NEUT # 7.3 x10^3uL (1.8-7.7); NEUT % 78 % (31-73); PLATELET COUNT 263 x10^3/uL (140-400); RED BLOOD COUNT 4.36 x10^6/uL (3.50-5.40); RED CELL DISTRIBUTION WIDTH 13.8 % (11.5-14.5); WHITE BLOOD COUNT 9.4 x10^3/uL (4.0-11.0)
[2018-02-24 15:22] LABS: PREG TEST PT QUAL NEGATIVE (NEG)
[2018-02-24 15:23] LABS: CALCIUM 8.8 mg/dL (8.5-10.1); GFR 69.3; POTASSIUM 3.6 mmol/L (3.5-5.1)
[2018-02-24 15:28] LABS: ALBUMIN 3.8 g/dL (3.4-5.0); ALBUMIN/GLOBULIN RATIO 1.3 (1.0-1.7); TOTAL BILIRUBIN 0.4 mg/dL (0.2-1.0); TOTAL PROTEIN 6.8 g/dL (6.4-8.2)
--- NOTE | 2018-02-24 15:30 | EKG ---
[facility] [address] [place] [address] Test Date: 2018-02-24 Test Time: 14:48:40 Pat Name: SONY MARQUEZ Department: Room: Gender: F Disaster Recovery Analyst: : 1995 Requested By: ANG FLOWERS Order Number: [id number] Reading MD: Gilbert Renee MD Measurements Intervals [place] Rate: 99 P: 54 DC: 180 QRS: 51 QRSD: 72 T: 34 QT: 332 QTc: 431 Interpretive Statements SINUS RHYTHM Electronically Signed On 02-25-2018 11:28:14 CDT by Gilbert Renee MD
--- NOTE | 2018-02-24 15:46 | RAD ---
EXAM: Chest, single view. HISTORY: Seizure. COMPARISON: None. FINDINGS: A frontal view of the chest is obtained. There is no infiltrate, pleural effusion or pneumothorax. The heart is normal in size. IMPRESSION: No acute pulmonary finding. Electronically signed by: Veronica Andrade MD (02/24/2018 3:43 PM) [place] [id number]
--- NOTE | 2018-02-24 15:58 | RAD ---
CT HEAD INDICATION: SEIZURES, X2 DAYS
PRIOR SENT COMPARISON: None Available. TECHNIQUE: 5 mm contiguous axial images were obtained from the skull base to the vertex in both bone and soft tissue algorithm. Exposure: One or more of the following individualized dose reduction techniques were utilized for this examination: 1. Automated exposure control 2. Adjustment of the mA and/or kV according to patient size 3. Use of iterative reconstruction technique FINDINGS: No abnormal attenuation within the brain parenchyma. No evidence of acute intracranial hemorrhage. No extra-axial fluid collections. No mass effect or midline shift. Ventricular size is appropriate. Basal cisterns are patent. No fractures identified.Jackson-white differentiation is preserved.Globes and orbits are within normal limits. Paranasal sinuses and mastoid air cells are clear. IMPRESSION: No acute intracranial findings. Electronically signed by: Michael Esparza MD (02/24/2018 3:54 PM) [id number]
[2018-02-24] MEDS ORDERED: IV NORMAL SALINE 1000ML BAG 1,000 ML IV ONE (16:15)
[2018-02-24] MEDS ORDERED: ONDANSETRON PF 4 MG/2 ML VIAL. IV PRN (16:45)
[2018-02-24] MEDS ORDERED: IV NORMAL SALINE 1000ML BAG 1,000 ML IV SCH (17:00)
[2018-02-24] MEDS ORDERED: LIDOCAINE 2% VISCOUS 15 ML SOLUTION. SWSW ONE (17:30)
[2018-02-24 17:38] LABS: BILIRUBIN,URINE NEGATIVE (NEG); CLARITY,URINE CLEAR; COLOR,URINE YELLOW; NITRITE,URINE NEGATIVE (NEG); PH,URINE 6.5; PROTEIN,URINE NEGATIVE (NEG-TRACE); UROBILINOGEN,URINE 0.2 mg/dL (0.2 mg/dL)
[2018-02-24 17:45] LABS: AMPHETAMINE/METHAMPHETAMINE NEG (NEG); BARBITURATES NEG (NEG); BENZODIAZEPINES POS (NEG); CANNABINOIDS POS (NEG); COCAINE NEG (NEG); METHADONE NEG (NEG); OPIATES NEG (NEG); PHENCYCLIDINE NEG (NEG)
[2018-02-24 17:48] LABS: BACTERIA,URINE 0 /HPF (0-FEW); RBC,URINE 0 /HPF (0-2); SQUAMOUS EPITHELIAL CELL,UR MOD /LPF; WBC,URINE 0 /HPF (0-4)
[2018-02-24] MEDS ORDERED: HYDROcodone/APAP 5/325MG 1 TAB TABLET PO PRN (18:45)
[2018-02-24 19:25] VITALS: BP 115/75
--- NOTE | 2018-02-24 20:06 | HP ---
ADMIT DATE: 02/24/2018 CHIEF COMPLAINT: Seizure. HISTORY OF PRESENT ILLNESS: The patient is a pleasant, relatively healthy 23-year-old female who has new onset seizures. ARLETTE BERNAL DO DR: John JOB#: [id number] / [id number]
--- NOTE | 2018-02-24 20:14 | HP ---
ADMIT DATE: 02/24/2018 CHIEF COMPLAINT: Seizure. HISTORY OF PRESENT ILLNESS: The patient is a pleasant 23-year-old relatively healthy female who presented with seizures. She had a seizure yesterday morning, and she had another one today. They called 911. She was brought to the ER. She got some IV Versed on the way from EMS. She was combative. She is now calmer. She has got some scratches on her side. She is postictal. I have discussed the case with ER physician. We are going to admit the patient and consult Neurology. PAST MEDICAL HISTORY: Asthma and migraines and marijuana use (the patient states she has been putting the marijuana on some strange pen, it has got a battery, it sounds like she may have been using some other illicit drugs). ALLERGIES: None. FAMILY HISTORY: Diabetes. SOCIAL HISTORY: She smokes marijuana. 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 She does not smoke or drink other than social drinking. MEDICATIONS: Reviewed, please refer to the MRAD. REVIEW OF SYSTEMS: GENERAL: No history of weight change, weakness or fevers. HEENT: She complains of a sore tongue. SKIN: No bruising, hair changes or rashes. EYES: No blurred, double or loss of vision. NOSE AND THROAT: No history of nosebleeds, hoarseness or sore throat. HEART: No history of palpitations, chest pain or shortness of breath on exertion. LUNGS: Denies cough, hemoptysis, wheezing or shortness of breath. GASTROINTESTINAL: Denies changes in appetite, nausea, vomiting, diarrhea or constipation. GENITOURINARY: No history of frequency, urgency, hesitancy or nocturia. NEUROLOGIC: She complains of weakness. She complains of a headache. PSYCHIATRIC: No history of panic, anxiety or depression. ENDOCRINE: No history of heat or cold intolerance, polyuria or polydipsia. EXTREMITIES: Denies muscle weakness, joint pain, pain on walking or stiffness. PHYSICAL EXAMINATION: VITAL SIGNS: Temperature 98, pulse 80, respirations 16, blood pressure 115/75. GENERAL: She is alert, a little sluggish, but cooperative. Her boyfriend is present. HEART: Normal S1, S2. LUNGS: Clear. ABDOMEN: Soft, positive bowel sounds. EXTREMITIES: No edema. SKIN: No rash. ENDOCRINE: No thyromegaly. LYMPHATICS: No cervical nodes. HEMATOPOIETIC: No bruising. LABORATORY DATA: Hematology is normal. Electrolytes are normal. Lactic acid is a little high at 5.3. Drug screen is positive for cannabinoids. Urinalysis negative. CT of the head negative. Chest x-ray negative. ASSESSMENT AND PLAN: New onset seizures in a relatively healthy young lady who is doing some odd drugs that comes in a pen and they put on some special battery. I suspect this could be drug related. She agrees and states she is going to quit doing the drugs. For now, the question is should we put her on Keppra or some other antiepileptic drug. We are going to consult Dr. Garcia. Cardiac monitoring. Seizure precautions, IV fluids. Home meds. Repeat her labs. Full code. P.r.n. Zofran for nausea, p.r.n. Ativan for breakthrough seizure, p.r.n. hydrocodone for her headache. ARLETTE BERNAL DO DR: NANCY/krishna JOB#: [id number] / [id number]
[2018-02-24 23:45] VITALS: BP 109/68
[2018-02-25 02:11] LABS: AMPHETAMINE/METHAMPHETAMINE NEG (NEG); BARBITURATES NEG (NEG); BENZODIAZEPINES POS (NEG); CANNABINOIDS POS (NEG); COCAINE NEG (NEG); METHADONE NEG (NEG); OPIATES NEG (NEG); PHENCYCLIDINE NEG (NEG)
[2018-02-25 03:29] VITALS: BP 106/62
[2018-02-25 07:51] VITALS: BP 118/80
[2018-02-25] MEDS ORDERED: NICOTINE 21MG PATCH. TD PRN (09:00)
[2018-02-25] MEDS ORDERED: ALPRAZolam 0.5 MG TABLET PO PRN (09:00)
[2018-02-25] MEDS ORDERED: ONDANSETRON PF 4 MG/2 ML VIAL. IV PRN (09:00)
[2018-02-25] MEDS ORDERED: IBUPROFEN 400 MG TABLET. PO PRN (09:00)
[2018-02-25] MEDS ORDERED: ACETAMINOPHEN/CODEINE 300/30MG TABLET. PO PRN (09:00)
[2018-02-25] MEDS ORDERED: ACETAMINOPHEN 500 MG TABLET PO ONE (09:30)
--- NOTE | 2018-02-25 11:43 | PDOC ---
PROGRESS NOTES Chief Complaint Chief Complaint Seizures on admission Positive benzos and cannabinoids Marijuana user Asthma, history migraines-chronic stable History of Present Illness History of Present Illness Patient out having EEG Neurology on board but has not seen patient Admission notes reviewed, seizure-like activity with no history of seizures prior No overnight seizures as discussed with staff Tested positive for cannabinoids and benzos in UDS on admission Plan Await EEG Neurology consulted Seizure precaution Already on Ativan 2 minutes IV every 4 when necessary Asthma and migraine seems to be chronic stable Vitals Vitals Vital Signs Date Time Temp Pulse Resp B/P (MAP) Pulse Ox O2 Delivery O2 Flow Rate FiO2 02/25/18 08:00 Room Air 02/25/18 07:51 98.7 77 18 118/80 (93) 97 98.7 Physical Exam General: Alert, Oriented X3, Cooperative, No acute distress Heart: Regular rate, Normal S1, Normal S2 Lungs: Clear Abdomen: Normal bowel sounds, Soft Extremities: No clubbing, No cyanosis Skin: No rashes, No breakdown Labs LABS Laboratory Tests Test 02/24/18 14:20 02/24/18 14:45 02/24/18 17:30 02/24/18 23:00 Ammonia 34 mcmol/L (11-34) White Blood Count 9.4 x10^3/uL (4.0-11.0) Red Blood Count 4.36 x10^6/uL (3.50-5.40) Hemoglobin 13.1 g/dL (12.0-15.5) Hematocrit 38.4 % (36.0-47.0) Mean Corpuscular Volume 88 fL (79-100) Mean Corpuscular Hemoglobin 30 pg (25-35) Mean Corpuscular Hemoglobin Concent 34 g/dL (31-37) Red Cell Distribution Width 13.8 % (11.5-14.5) Platelet Count 263 x10^3/uL (140-400) Neutrophils (%) (Auto) 78 % (31-73) Lymphocytes (%) (Auto) 16 % (24-48) Monocytes (%) (Auto) 5 % (0-9) Eosinophils (%) (Auto) 1 % (0-3) Basophils (%) (Auto) 0 % (0-3) Neutrophils # (Auto) 7.3 x10^3uL (1.8-7.7) Lymphocytes # (Auto) 1.5 x10^3/uL (1.0-4.8) Monocytes # (Auto) 0.4 x10^3/uL (0.0-1.1) Eosinophils # (Auto) 0.1 x10^3/uL (0.0-0.7) Basophils # (Auto) 0.0 x10^3/uL (0.0-0.2) Sodium Level 139 mmol/L (136-145) Potassium Level 3.6 mmol/L (3.5-5.1) Chloride Level 105 mmol/L (98-107) Carbon Dioxide Level 21 mmol/L (21-32) Anion Gap 13 (6-14) Blood Urea Nitrogen 12 mg/dL (7-20) Creatinine 1.0 mg/dL (0.6-1.0) Estimated GFR (Cockcroft-Gault) 69.3 BUN/Creatinine Ratio 12 (6-20) Glucose Level 175 mg/dL (70-99) Lactic Acid Level 5.3 mmol/L (0.4-2.0) Calcium Level 8.8 mg/dL (8.5-10.1) Total Bilirubin 0.4 mg/dL (0.2-1.0) Aspartate Amino Transf (AST/SGOT) 15 U/L (15-37) Alanine Aminotransferase (ALT/SGPT) 17 U/L (14-59) Alkaline Phosphatase 68 U/L (46-116) Creatine Kinase 182 U/L (26-192) Total Protein 6.8 g/dL (6.4-8.2) Albumin 3.8 g/dL (3.4-5.0) Albumin/Globulin Ratio 1.3 (1.0-1.7) Serum Test, Qualitative Negative (NEG) Ethyl Alcohol Level < 10 mg/dL (0-10) Urine Collection Type Unknown Urine Color Yellow Urine Clarity Clear Urine pH 6.5 Urine Specific [place] 1.025 Urine Protein Negative mg/dL (NEG-TRACE) Urine Glucose (UA) Negative mg/dL (NEG) Urine Ketones (Stick) Trace mg/dL (NEG) Urine Blood Negative (NEG) Urine Nitrite Negative (NEG) Urine Bilirubin Negative (NEG) Urine Urobilinogen Dipstick 0.2 mg/dL (0.2 mg/dL) Urine Leukocyte Esterase Negative (NEG) Urine RBC 0 /HPF (0-2) Urine WBC 0 /HPF (0-4) Urine Squamous Epithelial Cells Mod /LPF Urine Bacteria 0 /HPF (0-FEW) Urine Mucus Mod /LPF Urine Opiates Screen Neg (NEG) Neg (NEG) Urine Methadone Screen Neg (NEG) Neg (NEG) Urine Barbiturates Neg (NEG) Neg (NEG) Urine Phencyclidine Screen Neg (NEG) Neg (NEG) Urine Amphetamine/Methamphetamine Neg (NEG) Neg (NEG) Urine Benzodiazepines Screen Pos (NEG) Pos (NEG) Urine Cocaine Screen Neg (NEG) Neg (NEG) Urine Cannabinoids Screen Pos (NEG) Pos (NEG) Urine Ethyl Alcohol Neg (NEG) Neg (NEG) Review of Systems Review of Systems Out having EEG Assessment and Plan Assessmemt and Plan Problems Medical Problems: (1) Altered mental status Status: Acute (2) Seizure Status: Acute Comment Review of Relevant I have reviewed the following items ida (where applicable) has been applied. Labs Laboratory Tests Test 02/24/18 14:20 02/24/18 14:45 02/24/18 17:30 02/24/18 23:00 Ammonia 34 mcmol/L (11-34) White Blood Count 9.4 x10^3/uL (4.0-11.0) Red Blood Count 4.36 x10^6/uL (3.50-5.40) Hemoglobin 13.1 g/dL (12.0-15.5) Hematocrit 38.4 % (36.0-47.0) Mean Corpuscular Volume 88 fL (79-100) Mean Corpuscular Hemoglobin 30 pg (25-35) Mean Corpuscular Hemoglobin Concent 34 g/dL (31-37) Red Cell Distribution Width 13.8 % (11.5-14.5) Platelet Count 263 x10^3/uL (140-400) Neutrophils (%) (Auto) 78 % (31-73) Lymphocytes (%) (Auto) 16 % (24-48) Monocytes (%) (Auto) 5 % (0-9) Eosinophils (%) (Auto) 1 % (0-3) Basophils (%) (Auto) 0 % (0-3) Neutrophils # (Auto) 7.3 x10^3uL (1.8-7.7) Lymphocytes # (Auto) 1.5 x10^3/uL (1.0-4.8) Monocytes # (Auto) 0.4 x10^3/uL (0.0-1.1) Eosinophils # (Auto) 0.1 x10^3/uL (0.0-0.7) Basophils # (Auto) 0.0 x10^3/uL (0.0-0.2) Sodium Level 139 mmol/L (136-145) Potassium Level 3.6 mmol/L (3.5-5.1) Chloride Level 105 mmol/L (98-107) Carbon Dioxide Level 21 mmol/L (21-32) Anion Gap 13 (6-14) Blood Urea Nitrogen 12 mg/dL (7-20) Creatinine 1.0 mg/dL (0.6-1.0) Estimated GFR (Cockcroft-Gault) 69.3 BUN/Creatinine Ratio 12 (6-20) Glucose Level 175 mg/dL (70-99) Lactic Acid Level 5.3 mmol/L (0.4-2.0) Calcium Level 8.8 mg/dL (8.5-10.1) Total Bilirubin 0.4 mg/dL (0.2-1.0) Aspartate Amino Transf (AST/SGOT) 15 U/L (15-37) Alanine Aminotransferase (ALT/SGPT) 17 U/L (14-59) Alkaline Phosphatase 68 U/L (46-116) Creatine Kinase 182 U/L (26-192) Total Protein 6.8 g/dL (6.4-8.2) Albumin 3.8 g/dL (3.4-5.0) Albumin/Globulin Ratio 1.3 (1.0-1.7) Serum Test, Qualitative Negative (NEG) Ethyl Alcohol Level < 10 mg/dL (0-10) Urine Collection Type Unknown Urine Color Yellow Urine Clarity Clear Urine pH 6.5 Urine Specific [place] 1.025 Urine Protein Negative mg/dL (NEG-TRACE) Urine Glucose (UA) Negative mg/dL (NEG) Urine Ketones (Stick) Trace mg/dL (NEG) Urine Blood Negative (NEG) Urine Nitrite Negative (NEG) Urine Bilirubin Negative (NEG) Urine Urobilinogen Dipstick 0.2 mg/dL (0.2 mg/dL) Urine Leukocyte Esterase Negative (NEG) Urine RBC 0 /HPF (0-2) Urine WBC 0 /HPF (0-4) Urine Squamous Epithelial Cells Mod /LPF Urine Bacteria 0 /HPF (0-FEW) Urine Mucus Mod /LPF Urine Opiates Screen Neg (NEG) Neg (NEG) Urine Methadone Screen Neg (NEG) Neg (NEG) Urine Barbiturates Neg (NEG) Neg (NEG) Urine Phencyclidine Screen Neg (NEG) Neg (NEG) Urine Amphetamine/Methamphetamine Neg (NEG) Neg (NEG) Urine Benzodiazepines Screen Pos (NEG) Pos (NEG) Urine Cocaine Screen Neg (NEG) Neg (NEG) Urine Cannabinoids Screen Pos (NEG) Pos (NEG) Urine Ethyl Alcohol Neg (NEG) Neg (NEG) Laboratory Tests Test 02/24/18 14:20 02/24/18 14:45 02/24/18 17:30 02/24/18 23:00 Ammonia 34 mcmol/L (11-34) White Blood Count 9.4 x10^3/uL (4.0-11.0) Red Blood Count 4.36 x10^6/uL (3.50-5.40) Hemoglobin 13.1 g/dL (12.0-15.5) Hematocrit 38.4 % (36.0-47.0) Mean Corpuscular Volume 88 fL (79-100) Mean Corpuscular Hemoglobin 30 pg (25-35) Mean Corpuscular Hemoglobin Concent 34 g/dL (31-37) Red Cell Distribution Width 13.8 % (11.5-14.5) Platelet Count 263 x10^3/uL (140-400) Neutrophils (%) (Auto) 78 % (31-73) Lymphocytes (%) (Auto) 16 % (24-48) Monocytes (%) (Auto) 5 % (0-9) Eosinophils (%) (Auto) 1 % (0-3) Basophils (%) (Auto) 0 % (0-3) Neutrophils # (Auto) 7.3 x10^3uL (1.8-7.7) Lymphocytes # (Auto) 1.5 x10^3/uL (1.0-4.8) Monocytes # (Auto) 0.4 x10^3/uL (0.0-1.1) Eosinophils # (Auto) 0.1 x10^3/uL (0.0-0.7) Basophils # (Auto) 0.0 x10^3/uL (0.0-0.2) Sodium Level 139 mmol/L (136-145) Potassium Level 3.6 mmol/L (3.5-5.1) Chloride Level 105 mmol/L (98-107) Carbon Dioxide Level 21 mmol/L (21-32) Anion Gap 13 (6-14) Blood Urea Nitrogen 12 mg/dL (7-20) Creatinine 1.0 mg/dL (0.6-1.0) Estimated GFR (Cockcroft-Gault) 69.3 BUN/Creatinine Ratio 12 (6-20) Glucose Level 175 mg/dL (70-99) Lactic Acid Level 5.3 mmol/L (0.4-2.0) Calcium Level 8.8 mg/dL (8.5-10.1) Total Bilirubin 0.4 mg/dL (0.2-1.0) Aspartate Amino Transf (AST/SGOT) 15 U/L (15-37) Alanine Aminotransferase (ALT/SGPT) 17 U/L (14-59) Alkaline Phosphatase 68 U/L (46-116) Creatine Kinase 182 U/L (26-192) Total Protein 6.8 g/dL (6.4-8.2) Albumin 3.8 g/dL (3.4-5.0) Albumin/Globulin Ratio 1.3 (1.0-1.7) Serum Test, Qualitative Negative (NEG) Ethyl Alcohol Level < 10 mg/dL (0-10) Urine Collection Type Unknown Urine Color Yellow Urine Clarity Clear Urine pH 6.5 Urine Specific [place] 1.025 Urine Protein Negative mg/dL (NEG-TRACE) Urine Glucose (UA) Negative mg/dL (NEG) Urine Ketones (Stick) Trace mg/dL (NEG) Urine Blood Negative (NEG) Urine Nitrite Negative (NEG) Urine Bilirubin Negative (NEG) Urine Urobilinogen Dipstick 0.2 mg/dL (0.2 mg/dL) Urine Leukocyte Esterase Negative (NEG) Urine RBC 0 /HPF (0-2) Urine WBC 0 /HPF (0-4) Urine Squamous Epithelial Cells Mod /LPF Urine Bacteria 0 /HPF (0-FEW) Urine Mucus Mod /LPF Urine Opiates Screen Neg (NEG) Neg (NEG) Urine Methadone Screen Neg (NEG) Neg (NEG) Urine Barbiturates Neg (NEG) Neg (NEG) Urine Phencyclidine Screen Neg (NEG) Neg (NEG) Urine Amphetamine/Methamphetamine Neg (NEG) Neg (NEG) Urine Benzodiazepines Screen Pos (NEG) Pos (NEG) Urine Cocaine Screen Neg (NEG) Neg (NEG) Urine Cannabinoids Screen Pos (NEG) Pos (NEG) Urine Ethyl Alcohol Neg (NEG) Neg (NEG) Medications Current Medications Sodium Chloride 1,000 ml @ 1,000 mls/hr 1X ONCE IV Last administered on at 17:20; Start 02/24/18 at 16:15; Stop 02/24/18 at 17:14; Status DC Ondansetron HCl (Zofran) 4 mg PRN Q8HRS PRN IV NAUSEA/VOMITING; Start 02/24/18 at 16:45; Stop 02/25/18 at 08:54; Status DC Sodium Chloride 1,000 ml @ 75 mls/hr [id number] IV Last administered on at 17:00; Start 02/24/18 at 17:00; Stop 02/25/18 at 16:59 Lidocaine HCl (Viscous Lidocaine) 15 ml 1X ONCE SWSW Last administered on 02/24at 18:26; Start 02/24/18 at 17:30; Stop 02/24/18 at 17:31; Status DC Acetaminophen/ Hydrocodone Bitart (Lortab 5/325) 1 tab PRN Q4HRS PRN PO MODERATE TO SEVERE PAIN; Start 02/24/18 at 18:45 Lorazepam (Ativan) 2 mg PRN Q5MIN PRN IV ANXIETY / AGITATION; Start 02/24/18 at 18:45 Ondansetron HCl (Zofran) 4 mg PRN Q6HRS PRN IV NAUSEA/VOMITING; Start 02/25/18 at 09:00 Acetaminophen (Tylenol) 500 mg 1X ONCE PO ; Start 02/25/18 at 09:30; Stop 02/25 at 09:31; Status DC Acetaminophen/ Codeine Phosphate (Tylenol #3) 1 tab PRN Q6HRS PRN PO MILD PAIN ; Start 02/25/18 at 09:00 Ibuprofen (Motrin) 400 mg PRN Q6HRS PRN PO INFLAMMATION; Start 02/25/18 at 09: 00 Alprazolam (Xanax) 0.5 mg PRN Q8HRS PRN PO ANXIETY / AGITATION; Start 02/25/18 at 09:00 Nicotine (Nicoderm Cq 21mg) 1 patch PRN DAILY PRN TD SMOKING CESSATION; Start 02/25/18 at 09:00 Active Scripts Active Promethazine Hcl 25 Mg Tablet 25 Mg PO Q6H PRN Zofran (Ondansetron Hcl) 4 Mg Tablet 1 Tab PO Q8HRS Vitals/I & O Vital Sign - Last 24 Hours 02/24/18 02/24/18 02/24/18 02/24/18 14:38 15:00 15:30 16:00 Temp 99.5 99.5 Pulse 101 88 86 96 Resp 18 12 12 14 B/P (MAP) 126/59 (81) Pulse Ox 98 96 97 O2 Delivery Room Air 02/24/18 02/24/18 02/24/18 02/24/18 16:30 17:00 19:25 20:00 Temp 98.3 98.3 Pulse 98 72 81 Resp 14 12 16 B/P (MAP) 115/75 (88) Pulse Ox 98 98 98 O2 Delivery Room Air Room Air 02/24/18 02/25/18 02/25/18 02/25/18 23:45 03:29 07:51 08:00 Temp 98.4 98.7 98.7 98.4 98.7 98.7 Pulse 82 78 77 Resp 16 16 18 B/P (MAP) 109/68 (82) 106/62 (77) 118/80 (93) Pulse Ox 96 97 97 O2 Delivery Room Air Room Air Room Air Room Air Intake and Output 02/24/18 02/24/18 02/25/18 15:00 23:00 07:00 Intake Total 900 ml 480 ml Output Total 400 ml Balance 900 ml 80 ml DA DANIELS MD Feb 25, 2018 11:43
[2018-02-25 11:53] VITALS: BP 131/80
--- NOTE | 2018-02-25 11:54 | PDOC3 ---
Discharge Summary Visit Information Date of Admission: Feb 24, 2018 Date of Discharge: Feb 25, 2018 Admitting Diagnosis Comment: Seizures in the background of recreational drug use Marijuana use secondary to stress headaches mild Final Diagnosis Problems Medical Problems: (1) Altered mental status Status: Acute (2) Seizure Status: Acute Brief Hospital Course Allergies Allergies Coded Allergies Type Severity Reaction Last Updated Verified No Known Drug Allergies 01/28/17 No Vital Signs Vital Signs Date Time Temp Pulse Resp B/P (MAP) Pulse Ox O2 Delivery O2 Flow Rate FiO2 02/25/18 08:00 Room Air 02/25/18 07:51 98.7 77 18 118/80 (93) 97 98.7 Lab Results Laboratory Tests Test 02/24/18 14:20 02/24/18 14:45 02/24/18 17:30 02/24/18 23:00 Ammonia 34 mcmol/L (11-34) White Blood Count 9.4 x10^3/uL (4.0-11.0) Red Blood Count 4.36 x10^6/uL (3.50-5.40) Hemoglobin 13.1 g/dL (12.0-15.5) Hematocrit 38.4 % (36.0-47.0) Mean Corpuscular Volume 88 fL (79-100) Mean Corpuscular Hemoglobin 30 pg (25-35) Mean Corpuscular Hemoglobin Concent 34 g/dL (31-37) Red Cell Distribution Width 13.8 % (11.5-14.5) Platelet Count 263 x10^3/uL (140-400) Neutrophils (%) (Auto) 78 % (31-73) Lymphocytes (%) (Auto) 16 % (24-48) Monocytes (%) (Auto) 5 % (0-9) Eosinophils (%) (Auto) 1 % (0-3) Basophils (%) (Auto) 0 % (0-3) Neutrophils # (Auto) 7.3 x10^3uL (1.8-7.7) Lymphocytes # (Auto) 1.5 x10^3/uL (1.0-4.8) Monocytes # (Auto) 0.4 x10^3/uL (0.0-1.1) Eosinophils # (Auto) 0.1 x10^3/uL (0.0-0.7) Basophils # (Auto) 0.0 x10^3/uL (0.0-0.2) Sodium Level 139 mmol/L (136-145) Potassium Level 3.6 mmol/L (3.5-5.1) Chloride Level 105 mmol/L (98-107) Carbon Dioxide Level 21 mmol/L (21-32) Anion Gap 13 (6-14) Blood Urea Nitrogen 12 mg/dL (7-20) Creatinine 1.0 mg/dL (0.6-1.0) Estimated GFR (Cockcroft-Gault) 69.3 BUN/Creatinine Ratio 12 (6-20) Glucose Level 175 mg/dL (70-99) Lactic Acid Level 5.3 mmol/L (0.4-2.0) Calcium Level 8.8 mg/dL (8.5-10.1) Total Bilirubin 0.4 mg/dL (0.2-1.0) Aspartate Amino Transf (AST/SGOT) 15 U/L (15-37) Alanine Aminotransferase (ALT/SGPT) 17 U/L (14-59) Alkaline Phosphatase 68 U/L (46-116) Creatine Kinase 182 U/L (26-192) Total Protein 6.8 g/dL (6.4-8.2) Albumin 3.8 g/dL (3.4-5.0) Albumin/Globulin Ratio 1.3 (1.0-1.7) Serum Test, Qualitative Negative (NEG) Ethyl Alcohol Level < 10 mg/dL (0-10) Urine Collection Type Unknown Urine Color Yellow Urine Clarity Clear Urine pH 6.5 Urine Specific [place] 1.025 Urine Protein Negative mg/dL (NEG-TRACE) Urine Glucose (UA) Negative mg/dL (NEG) Urine Ketones (Stick) Trace mg/dL (NEG) Urine Blood Negative (NEG) Urine Nitrite Negative (NEG) Urine Bilirubin Negative (NEG) Urine Urobilinogen Dipstick 0.2 mg/dL (0.2 mg/dL) Urine Leukocyte Esterase Negative (NEG) Urine RBC 0 /HPF (0-2) Urine WBC 0 /HPF (0-4) Urine Squamous Epithelial Cells Mod /LPF Urine Bacteria 0 /HPF (0-FEW) Urine Mucus Mod /LPF Urine Opiates Screen Neg (NEG) Neg (NEG) Urine Methadone Screen Neg (NEG) Neg (NEG) Urine Barbiturates Neg (NEG) Neg (NEG) Urine Phencyclidine Screen Neg (NEG) Neg (NEG) Urine Amphetamine/Methamphetamine Neg (NEG) Neg (NEG) Urine Benzodiazepines Screen Pos (NEG) Pos (NEG) Urine Cocaine Screen Neg (NEG) Neg (NEG) Urine Cannabinoids Screen Pos (NEG) Pos (NEG) Urine Ethyl Alcohol Neg (NEG) Neg (NEG) Laboratory Tests Test 02/24/18 14:20 02/24/18 14:45 02/24/18 17:30 02/24/18 23:00 Ammonia 34 mcmol/L (11-34) White Blood Count 9.4 x10^3/uL (4.0-11.0) Red Blood Count 4.36 x10^6/uL (3.50-5.40) Hemoglobin 13.1 g/dL (12.0-15.5) Hematocrit 38.4 % (36.0-47.0) Mean Corpuscular Volume 88 fL (79-100) Mean Corpuscular Hemoglobin 30 pg (25-35) Mean Corpuscular Hemoglobin Concent 34 g/dL (31-37) Red Cell Distribution Width 13.8 % (11.5-14.5) Platelet Count 263 x10^3/uL (140-400) Neutrophils (%) (Auto) 78 % (31-73) Lymphocytes (%) (Auto) 16 % (24-48) Monocytes (%) (Auto) 5 % (0-9) Eosinophils (%) (Auto) 1 % (0-3) Basophils (%) (Auto) 0 % (0-3) Neutrophils # (Auto) 7.3 x10^3uL (1.8-7.7) Lymphocytes # (Auto) 1.5 x10^3/uL (1.0-4.8) Monocytes # (Auto) 0.4 x10^3/uL (0.0-1.1) Eosinophils # (Auto) 0.1 x10^3/uL (0.0-0.7) Basophils # (Auto) 0.0 x10^3/uL (0.0-0.2) Sodium Level 139 mmol/L (136-145) Potassium Level 3.6 mmol/L (3.5-5.1) Chloride Level 105 mmol/L (98-107) Carbon Dioxide Level 21 mmol/L (21-32) Anion Gap 13 (6-14) Blood Urea Nitrogen 12 mg/dL (7-20) Creatinine 1.0 mg/dL (0.6-1.0) Estimated GFR (Cockcroft-Gault) 69.3 BUN/Creatinine Ratio 12 (6-20) Glucose Level 175 mg/dL (70-99) Lactic Acid Level 5.3 mmol/L (0.4-2.0) Calcium Level 8.8 mg/dL (8.5-10.1) Total Bilirubin 0.4 mg/dL (0.2-1.0) Aspartate Amino Transf (AST/SGOT) 15 U/L (15-37) Alanine Aminotransferase (ALT/SGPT) 17 U/L (14-59) Alkaline Phosphatase 68 U/L (46-116) Creatine Kinase 182 U/L (26-192) Total Protein 6.8 g/dL (6.4-8.2) Albumin 3.8 g/dL (3.4-5.0) Albumin/Globulin Ratio 1.3 (1.0-1.7) Serum Test, Qualitative Negative (NEG) Ethyl Alcohol Level < 10 mg/dL (0-10) Urine Collection Type Unknown Urine Color Yellow Urine Clarity Clear Urine pH 6.5 Urine Specific [place] 1.025 Urine Protein Negative mg/dL (NEG-TRACE) Urine Glucose (UA) Negative mg/dL (NEG) Urine Ketones (Stick) Trace mg/dL (NEG) Urine Blood Negative (NEG) Urine Nitrite Negative (NEG) Urine Bilirubin Negative (NEG) Urine Urobilinogen Dipstick 0.2 mg/dL (0.2 mg/dL) Urine Leukocyte Esterase Negative (NEG) Urine RBC 0 /HPF (0-2) Urine WBC 0 /HPF (0-4) Urine Squamous Epithelial Cells Mod /LPF Urine Bacteria 0 /HPF (0-FEW) Urine Mucus Mod /LPF Urine Opiates Screen Neg (NEG) Neg (NEG) Urine Methadone Screen Neg (NEG) Neg (NEG) Urine Barbiturates Neg (NEG) Neg (NEG) Urine Phencyclidine Screen Neg (NEG) Neg (NEG) Urine Amphetamine/Methamphetamine Neg (NEG) Neg (NEG) Urine Benzodiazepines Screen Pos (NEG) Pos (NEG) Urine Cocaine Screen Neg (NEG) Neg (NEG) Urine Cannabinoids Screen Pos (NEG) Pos (NEG) Urine Ethyl Alcohol Neg (NEG) Neg (NEG) Brief Hospital Course Ms. Mar is a 23 old no significant past medical history admitted for seizure-like activity which is new onset. Did test positive for benzos and marijuana. She admits to marijuana use because of stress. Counseled her to channel her stress to some other things like working out or kickboxing instead of rec drugs. She has a 5-year-old. EEG done. Neurology consulted but those 2 are still pending. No seizure for the past 24 hours. If neurology clears okay to DC. I have advised stopping marijuana use etc. Patient seen and examined, two Notes today Discharge Information Condition at Discharge: Improved, Stable Disposition/Orders: D/C to Home Scheduled Ondansetron Hcl (Zofran) 4 Mg Tablet, 1 TAB PO Q8HRS, #8 Prescribed by: Yeyo BARLOW MD on 01/28/17 0131 Scheduled PRN Promethazine Hcl (Promethazine Hcl) 25 Mg Tablet, 25 MG PO Q6H PRN for NAUSEA/ VOMITING, #20 Prescribed by: Georgiana [email or web address] on 01/07/18 1623 DA DANIELS MD Feb 25, 2018 11:54
--- NOTE | 2018-02-25 12:07 | EEG ---
DATE OF SERVICE: 02/25/2018 EEG NUMBER: [id number] OBJECTIVE: This is a 23-year-old female patient with history of 2 seizures one in yesterday and another one the day before yesterday. EEG was requested to evaluate seizure activity. METHODS: Twenty electrodes were applied according to the international 10-20 electrode placement system. EKG monitoring, hyperventilation, intermittent photic stimulation, monopolar and bipolar montages are routinely utilized. The record was obtained on a digital system with video monitoring. MEDICATIONS: No anti-seizure medication. Marijuana and benzo positive in tests. FINDINGS: 1. Background: The patient was recorded in the awake, drowsy, and sleep states. The overall background amplitude is 5-15 microvolts. A posterior dominant rhythm of 8 Hz is observed with superimposed fast activity in Beta frequency. 2. Abnormalities: No specific epileptiform discharge or electrographic seizure is seen. No focal or diffuse slowing. 3. Activation: Hyperventilation was performed with good efforts and normal response. Intermittent photic stimulation was performed with photic driving. No specific epileptiform discharge or electrographic seizure induced by hyperventilation or intermittent photic stimulation. IMPRESSION: This EEG is a borderline study for the awake, drowsy, and sleep states. There is a fast activity in the Beta frequency which may be drug effect. No focal, lateralizing, specific epileptiform discharge or electrographic seizure is seen. YENNI CRUZ MD DR: GAETANO/krishna JOB#: [id number] / [id number] SRINATH
[2018-02-25 15:12] VITALS: BP 111/71
--- NOTE | 2018-02-25 16:41 | PDOC2 ---
NEUROLOGY CONSULT Date of Admission Date of Admission DATE: 02/25/18 TIME: 16:25 Reason for Consult Reason for Consult: IMPRESSION: Seizure on 02/23 and 02/24, provoked. Marijuana use/abuse. Lactic acidosis. DM? Over weight. RECOMMENDATIONS/PLAN: EEG. Lab: see orders. Keppra 500 mg bid. Discussed with patient that Keppra may not be effective for drug induced seizures. Patient education for illicit drug abstinence. Patient education for seizure precautions. No driving for 6 months anytime after a seizure, she fully understood. FU with PCP. FU with Neurology if has further seizures. EEG on 02/25/18: Borderline study. No epileptiform discharges or electrographic seizure. Fasting activity in Beta frequency noted. HISTORY OF THE PRESENT ILLNESS: 23-y-old female patient with history of migraine headaches and asthma but no history of seizure. She has been using marijuana about 2 times a day for several years. She had a seizure on 02/23/18 and a second seizure on 02/24/18 reportedly as convulsion, but she did not remember her seizures. No headache, vomiting, fever, ataxia, sensory or motor deficits. PAST MEDICAL HISTORY: Asthma and migraines and marijuana use (the patient states she has been putting the marijuana on some strange pen, it has got a battery, it sounds like she may have been using some other illicit drugs). PAST SURGERY HISTORY: No major surgery recently. ALLERGIES: NKDA. FAMILY HISTORY: Diabetes. SOCIAL HISTORY: She smokes marijuana. 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 She drinks as social drinking. MEDICATIONS: Refer to [facility] REVIEW OF SYSTEMS: Constitutional: Over weight. Head: No traumatic brain or head injury. Skin: No edema, or rash. Ear: No infection. Eyes: No vision loss or color blindness. Nose: No bleeding or purulent discharges. Hearing: No hearing decrease. Neck: No injury. Breast: No history of cancer, masses,or discharges. Cardiac: No UT, arrhythmia,claudication.. Pulmonary: Asthma. GI: No GI ulcer, GI bleeding. Urinary/genital: No dysuria, incontinence, urinary retention. Endocrinologic: Diabetes Mellitus? Skeletomuscular: No muscular atrophy, deformity. Neurological: see HP. Psychiatric: Marijuana use/abuse. Otherwise, not [id number] review of systems. PHYSICAL EXAMINATION: General appearance is mildly drowsiness. HEENT: Normocephalic and nontraumatic. Eyes, nose, ears, and throat are unremarkable. Neck is supple. No lymphadenopathy. No bruits are heard over the carotid artery. No crepitus. Cardiovascular: S1, S2, regular rate and rhythm. Pulmonary: Clear to auscultation bilaterally. Abdomen: Bowel sounds are positive. Abdomen is soft, nontender, and nondistended. Extremities: No rash, lesions, or edema. No restriction of range of motion NEUROLOGICAL EXAMINATION: Drowsiness. Oriented to time, place and person. PERRL. EOMI. CN: no focal findings. Muscle tone: within normal. Muscle strength: 5 DTR: 2+ Plantar reflex: Flexor response bilaterally Gait: At baseline normal. Sensory exam: no abnormal findings. No cerebellar signs elicited. F-T-N test accurate. Current Medications Current Medications Current Medications Sodium Chloride 1,000 ml @ 1,000 mls/hr 1X ONCE IV Last administered on at 17:20; Start 02/24/18 at 16:15; Stop 02/24/18 at 17:14; Status DC Ondansetron HCl (Zofran) 4 mg PRN Q8HRS PRN IV NAUSEA/VOMITING; Start 02/24/18 at 16:45; Stop 02/25/18 at 08:54; Status DC Sodium Chloride 1,000 ml @ 75 mls/hr [id number] IV Last administered on at 17:00; Start 02/24/18 at 17:00; Stop 02/25/18 at 15:50; Status DC Lidocaine HCl (Viscous Lidocaine) 15 ml 1X ONCE SWSW Last administered on 02/24at 18:26; Start 02/24/18 at 17:30; Stop 02/24/18 at 17:31; Status DC Acetaminophen/ Hydrocodone Bitart (Lortab 5/325) 1 tab PRN Q4HRS PRN PO MODERATE TO SEVERE PAIN; Start 02/24/18 at 18:45; Stop 02/25/18 at 15:50; Status DC Lorazepam (Ativan) 2 mg PRN Q5MIN PRN IV ANXIETY / AGITATION; Start 02/24/18 at 18:45; Stop 02/25/18 at 15:50; Status DC Ondansetron HCl (Zofran) 4 mg PRN Q6HRS PRN IV NAUSEA/VOMITING; Start 02/25/18 at 09:00; Stop 02/25/18 at 15:50; Status DC Acetaminophen (Tylenol) 500 mg 1X ONCE PO ; Start 02/25/18 at 09:30; Stop 02/25 at 09:31; Status DC Acetaminophen/ Codeine Phosphate (Tylenol #3) 1 tab PRN Q6HRS PRN PO MILD PAIN ; Start 02/25/18 at 09:00; Stop 02/25/18 at 15:50; Status DC Ibuprofen (Motrin) 400 mg PRN Q6HRS PRN PO INFLAMMATION; Start 02/25/18 at 09: 00; Stop 02/25/18 at 15:50; Status DC Alprazolam (Xanax) 0.5 mg PRN Q8HRS PRN PO ANXIETY / AGITATION; Start 02/25/18 at 09:00; Stop 02/25/18 at 15:50; Status DC Nicotine (Nicoderm Cq 21mg) 1 patch PRN DAILY PRN TD SMOKING CESSATION; Start 02/25/18 at 09:00; Stop 02/25/18 at 15:50; Status DC Active Scripts Active Promethazine Hcl 25 Mg Tablet 25 Mg PO Q6H PRN Zofran (Ondansetron Hcl) 4 Mg Tablet 1 Tab PO Q8HRS Allergies Allergies: Allergies Coded Allergies Type Severity Reaction Last Updated Verified No Known Drug Allergies 01/28/17 No ROS Review of System The patient denies any associated fevers, chills, headache, ear pain, rhinorrhea , sore throat, stiff neck, productive cough, chest pain, shortness of breath, back or flank pain, abdominal pain, nausea, vomiting, diarrhea, constipation, dysuria, rash, numbness, weakness, tingling, incontinence, difficulty ambulating, or diaphoresis. Physical Exam Physical Exam General: Well developed, well nourished, no acute distress, well appearing HEENT: Pupils equally round and reactive to light, EOMI, no discharge, normal conjunctiva Neck: Supple, no nuchal rigidity, no JVD, trachea midline, no tenderness Cardiac: RRR, no murmurs, no gallops, no rubs Chest/Lungs: CTAB, no wheeze, no rhonchi, no crackles Abdomen: soft, non-distended, no guarding, no peritoneal signs, non-tender Back: No tenderness Extremities: no edema, pulses intact, non-tender,capillary refill <3 sec bilateral upper and lower extremities, Neuro: Alert and oriented x 4, no focal deficits, normal speech Vitals Vitals: Vital Signs Date Time Temp Pulse Resp B/P (MAP) Pulse Ox O2 Delivery O2 Flow Rate FiO2 02/25/18 15:12 98.6 74 16 111/71 (84) 98 Room Air 98.6 Labs Labs Laboratory Tests Test 02/24/18 14:20 02/24/18 14:45 02/24/18 17:30 02/24/18 23:00 Ammonia 34 mcmol/L (11-34) White Blood Count 9.4 x10^3/uL (4.0-11.0) Red Blood Count 4.36 x10^6/uL (3.50-5.40) Hemoglobin 13.1 g/dL (12.0-15.5) Hematocrit 38.4 % (36.0-47.0) Mean Corpuscular Volume 88 fL (79-100) Mean Corpuscular Hemoglobin 30 pg (25-35) Mean Corpuscular Hemoglobin Concent 34 g/dL (31-37) Red Cell Distribution Width 13.8 % (11.5-14.5) Platelet Count 263 x10^3/uL (140-400) Neutrophils (%) (Auto) 78 % (31-73) Lymphocytes (%) (Auto) 16 % (24-48) Monocytes (%) (Auto) 5 % (0-9) Eosinophils (%) (Auto) 1 % (0-3) Basophils (%) (Auto) 0 % (0-3) Neutrophils # (Auto) 7.3 x10^3uL (1.8-7.7) Lymphocytes # (Auto) 1.5 x10^3/uL (1.0-4.8) Monocytes # (Auto) 0.4 x10^3/uL (0.0-1.1) Eosinophils # (Auto) 0.1 x10^3/uL (0.0-0.7) Basophils # (Auto) 0.0 x10^3/uL (0.0-0.2) Sodium Level 139 mmol/L (136-145) Potassium Level 3.6 mmol/L (3.5-5.1) Chloride Level 105 mmol/L (98-107) Carbon Dioxide Level 21 mmol/L (21-32) Anion Gap 13 (6-14) Blood Urea Nitrogen 12 mg/dL (7-20) Creatinine 1.0 mg/dL (0.6-1.0) Estimated GFR (Cockcroft-Gault) 69.3 BUN/Creatinine Ratio 12 (6-20) Glucose Level 175 mg/dL (70-99) Lactic Acid Level 5.3 mmol/L (0.4-2.0) Calcium Level 8.8 mg/dL (8.5-10.1) Total Bilirubin 0.4 mg/dL (0.2-1.0) Aspartate Amino Transf (AST/SGOT) 15 U/L (15-37) Alanine Aminotransferase (ALT/SGPT) 17 U/L (14-59) Alkaline Phosphatase 68 U/L (46-116) Creatine Kinase 182 U/L (26-192) Total Protein 6.8 g/dL (6.4-8.2) Albumin 3.8 g/dL (3.4-5.0) Albumin/Globulin Ratio 1.3 (1.0-1.7) Serum Test, Qualitative Negative (NEG) Ethyl Alcohol Level < 10 mg/dL (0-10) Urine Collection Type Unknown Urine Color Yellow Urine Clarity Clear Urine pH 6.5 Urine Specific Melvin 1.025 Urine Protein Negative mg/dL (NEG-TRACE) Urine Glucose (UA) Negative mg/dL (NEG) Urine Ketones (Stick) Trace mg/dL (NEG) Urine Blood Negative (NEG) Urine Nitrite Negative (NEG) Urine Bilirubin Negative (NEG) Urine Urobilinogen Dipstick 0.2 mg/dL (0.2 mg/dL) Urine Leukocyte Esterase Negative (NEG) Urine RBC 0 /HPF (0-2) Urine WBC 0 /HPF (0-4) Urine Squamous Epithelial Cells Mod /LPF Urine Bacteria 0 /HPF (0-FEW) Urine Mucus Mod /LPF Urine Opiates Screen Neg (NEG) Neg (NEG) Urine Methadone Screen Neg (NEG) Neg (NEG) Urine Barbiturates Neg (NEG) Neg (NEG) Urine Phencyclidine Screen Neg (NEG) Neg (NEG) Urine Amphetamine/Methamphetamine Neg (NEG) Neg (NEG) Urine Benzodiazepines Screen Pos (NEG) Pos (NEG) Urine Cocaine Screen Neg (NEG) Neg (NEG) Urine Cannabinoids Screen Pos (NEG) Pos (NEG) Urine Ethyl Alcohol Neg (NEG) Neg (NEG) Laboratory Tests Test 02/24/18 17:30 02/24/18 23:00 Urine Collection Type Unknown Urine Color Yellow Urine Clarity Clear Urine pH 6.5 Urine Specific Melvin 1.025 Urine Protein Negative mg/dL (NEG-TRACE) Urine Glucose (UA) Negative mg/dL (NEG) Urine Ketones (Stick) Trace mg/dL (NEG) Urine Blood Negative (NEG) Urine Nitrite Negative (NEG) Urine Bilirubin Negative (NEG) Urine Urobilinogen Dipstick 0.2 mg/dL (0.2 mg/dL) Urine Leukocyte Esterase Negative (NEG) Urine RBC 0 /HPF (0-2) Urine WBC 0 /HPF (0-4) Urine Squamous Epithelial Cells Mod /LPF Urine Bacteria 0 /HPF (0-FEW) Urine Mucus Mod /LPF Urine Opiates Screen Neg (NEG) Neg (NEG) Urine Methadone Screen Neg (NEG) Neg (NEG) Urine Barbiturates Neg (NEG) Neg (NEG) Urine Phencyclidine Screen Neg (NEG) Neg (NEG) Urine Amphetamine/Methamphetamine Neg (NEG) Neg (NEG) Urine Benzodiazepines Screen Pos (NEG) Pos (NEG) Urine Cocaine Screen Neg (NEG) Neg (NEG) Urine Cannabinoids Screen Pos (NEG) Pos (NEG) Urine Ethyl Alcohol Neg (NEG) Neg (NEG) YENNI CRUZ MD Feb 25, 2018 16:41
== END 2018-02-25 15:50 | disposition home or self-care (01) | DRG 100 ==
LOC: ER 14:33 → 6 SOUTH 16:11
PROVIDERS: ADMIT Internal Medicine; ATTEND Internal Medicine
DX: R56.9 Unspecified convulsions (principal); G93.41 Metabolic encephalopathy; E87.2 Acidosis; F12.10 Cannabis abuse, uncomplicated; G43.909 Migraine, unspecified, not intractable, without status migrainosus; J45.909 Unspecified asthma, uncomplicated; E66.3 Overweight; F15.90 Other stimulant use, unspecified, uncomplicated; Z83.3 Family history of diabetes mellitus; Z79.899 Other long term (current) drug therapy; Z68.31 Body mass index [BMI] 31.0-31.9, adult
CPT/HCPCS: 36415; 70450; 71045; 80053; 80307; 81001; 82140; 82550; 83605; 84703; 85025; 93005; 95816; 96360; G0480; J7030; 99285-25; G0479

== ENCOUNTER 2018-04-15 14:35 | Emergency (ER) | payer OTHER ==
[~2018-04-15] VITALS: Ht 160 cm; Wt 78.9 kg
[2018-04-15] MEDS ORDERED: PROCHLORPERAZINE 10 MG/2 ML VIAL. IM ONE (15:15)
[2018-04-15] MEDS ORDERED: diphenhydrAMINE 50 MG/ML VIAL IM ONE (15:15)
--- NOTE | 2018-04-15 15:34 | PHYS DOC ---
Past Medical History Past Medical History: Asthma, Migraines, Seizure Past Surgical History: No Surgical History Alcohol Use: None Drug Use: Marijuana Adult General Chief Complaint Chief Complaint: HEADACHE HPI HPI Patient is a 23 year old female who presents with a frontal headache since last night. Patient states that she has a history of migraines. Patient states taking any medications for her. States she does have some nausea and some light sensitivity but denies any numbness or tingling. Patient denies any numbness. Patient denies any neck pain or fever. He has no known drug allergies. She is 8 weeks . Patient has had 3 pregnancies, one baby, 1 miscarriage. She is currently has a due date of November 22. The only other history patient has a seizures which she is on medication for. She has no surgical history. Patient does have a OB doctor out of [facility]. Review of Systems Review of Systems Constitutional: Denies fever or chills [] Eyes: Denies change in visual acuity, redness, or eye pain [] HENT: Denies nasal congestion or sore throat [] Respiratory: Denies cough or shortness of breath [] Cardiovascular: No additional information not addressed in HPI [] GI: Denies abdominal pain, nausea, vomiting, bloody stools or diarrhea [] : Denies dysuria or hematuria [] Musculoskeletal: Denies back pain or joint pain [] Integument: Denies rash or skin lesions [] Neurologic: Headache. Denies focal weakness or sensory changes [] Endocrine: Denies polyuria or polydipsia [] All other systems were reviewed and found to be within normal limits, except as documented in this note. Current Medications Current Medications Current Medications Medications (Trade) Dose Ordered Sig/Jack Start Time Stop Time Status Last Admin Dose Admin Acetaminophen (Tylenol) 1,000 mg 1X ONCE 04/15/18 16:30 04/15/18 16:31 Diphenhydramine HCl (Benadryl) 50 mg 1X ONCE 04/15/18 15:15 04/15/18 15:16 DC 04/15/18 15:14 50 MG Prochlorperazine Edisylate (Compazine) 10 mg 1X ONCE 04/15/18 15:15 04/15/18 15:16 DC 04/15/18 15:14 10 MG Allergies Allergies Allergies Coded Allergies Type Severity Reaction Last Updated Verified No Known Drug Allergies 01/28/17 No Physical Exam Physical Exam Constitutional: Well developed, well nourished, no acute distress, non-toxic appearance. [] HENT: Normocephalic, atraumatic, bilateral external ears normal, oropharynx moist, no oral exudates, nose normal. [] Eyes: PERRLA, EOMI, conjunctiva normal, no discharge. [] Neck: Normal range of motion, no tenderness, supple, no stridor. [] Cardiovascular:Heart rate regular rhythm, no murmur [] Lungs & Thorax: Bilateral breath sounds clear to auscultation [] Abdomen: Bowel sounds normal, soft, no tenderness, no masses, no pulsatile masses. [] Skin: Warm, dry, no erythema, no rash. [] Back: No tenderness, no CVA tenderness. [] Extremities: No tenderness, no cyanosis, no clubbing, ROM intact, no edema. [] Neurologic: Light sensitivity. Alert and oriented X 3, normal motor function, normal sensory function, no focal deficits noted. [] Psychologic: Affect normal, judgement normal, mood normal. [] Current Patient Data Vital Signs Vital Signs Date Time Temp Pulse Resp B/P (MAP) Pulse Ox O2 Delivery O2 Flow Rate FiO2 04/15/18 14:50 99.2 68 20 120/73 (89) 98 Room Air 99.2 EKG EKG [] Radiology/Procedures Radiology/Procedures [] Course & Med Decision Making Course & Med Decision Making Patient is a 23 year old female who presents with a frontal headache since last night. Patient states that she has a history of migraines. Patient states taking any medications for her. States she does have some nausea and some light sensitivity but denies any numbness or tingling. Patient denies any numbness. Patient denies any neck pain or fever. He has no known drug allergies. She is 8 weeks . Patient has had 3 pregnancies, one baby, 1 miscarriage. She is currently has a due date of November 22. The only other history patient has a seizures which she is on medication for. She has no surgical history. Patient does have a OB doctor out of [facility]. Patient is alert and oriented. Patient states that this headache does feel like her usual migraine headaches. Skin pink warm and dry. She is neurologically intact. Abdomen is soft and nontender. Lungs are clear to auscultation all lobes. Heart regular without murmur. Denies sinus tenderness. Patient received Benadryl IM and Compazine IM. Patient states that her headache has lessened to a 4 and that she is starting to feel better. I offer the patient that we can put in a IV and give her Reglan to try to see if it helps her feel better or I can give her a prescription for Daggett. Patient states she would rather just go home with the Daggett. Patient agrees to call her physician in the morning. Patient is stable, alert, and oriented. [] Dragon Disclaimer Dragon Disclaimer This electronic medical record was generated, in whole or in part, using a voice recognition dictation system. Departure Departure Impression: Primary Impression: Migraine Disposition: 01 HOME, SELF-CARE Condition: STABLE Referrals: CHRISTA SELBY (PCP) Patient Instructions: Migraine Headache Additional Instructions: Call your physician in the morning. 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
[2018-04-15] MEDS ORDERED: ACETAMINOPHEN 500 MG TABLET PO ONE (16:30)
[2018-04-15] MEDS ORDERED: HYDR-971 PO (16:49)
[2018-04-15 16:58] VITALS: BP 124/71
== END 2018-04-15 17:11 | disposition home or self-care (01) ==
LOC: ER 14:35
DX: O26.891 Other specified pregnancy related conditions, first trimester (principal); G43.909 Migraine, unspecified, not intractable, without status migrainosus; J45.909 Unspecified asthma, uncomplicated; F12.10 Cannabis abuse, uncomplicated; Z3A.08 8 weeks gestation of pregnancy
CPT/HCPCS: 96372; 99284; J0780; J1200

== ENCOUNTER 2018-08-13 19:07 | Observation (INO) | payer OTHER ==
[~2018-08-13 19:07] MED LIST changes: +HYDR-3164 PO
[2018-08-13] MEDS: IV RINGERS,LACTATED 1000ML 1,000 ML IV SCH ×2 (19:30→20:49)
[2018-08-13] MEDS ORDERED: ONDANSETRON PF 4 MG/2 ML VIAL. IV PRN (19:30)
[2018-08-13 19:34] LABS: BILIRUBIN,URINE NEGATIVE (NEG); CLARITY,URINE CLEAR; COLOR,URINE YELLOW; NITRITE,URINE NEGATIVE (NEG); PROTEIN,URINE 30 mg/dL (NEG-TRACE); UROBILINOGEN,URINE 0.2 mg/dL (0.2 mg/dL)
[2018-08-13 19:41] LABS: BACTERIA,URINE FEW /HPF (0-FEW); BARBITURATES POS (NEG); BENZODIAZEPINES NEG (NEG); CANNABINOIDS POS (NEG); COCAINE NEG (NEG); METHADONE NEG (NEG); OPIATES NEG (NEG); PHENCYCLIDINE NEG (NEG); RBC,URINE 0 /HPF (0-2); SQUAMOUS EPITHELIAL CELL,UR OCC /LPF
[2018-08-13 19:42] LABS: AMPHETAMINE/METHAMPHETAMINE NEG (NEG)
[2018-08-13 19:56] LABS: INFLUENZA A PATIENT NEGATIVE (NEGATIVE); INFLUENZA B PATIENT NEGATIVE (NEGATIVE)
[2018-08-13] MEDS ORDERED: ACETAMINOPHEN 500 MG TABLET PO ONE (20:30)
[2018-08-13] MEDS ORDERED: METOCLOPRAMIDE HCL 10 MG/2 ML VIAL. IV PRN (22:15)
[2018-08-14] MEDS: IV RINGERS,LACTATED 1000ML 1,000 ML IV SCH ×2 (04:01→09:56)
[2018-08-14] MEDS: ONDANSETRON PF 4 MG/2 ML VIAL. IV SCH ×2 (04:01→12:02)
[2018-08-14] MEDS ORDERED: PANTOPRAZOLE IV PUSH 40 MG VIAL. IVP SCH (07:30)
[2018-08-14 07:32] LABS: ALBUMIN 2.2 g/dL (3.4-5.0); ALBUMIN/GLOBULIN RATIO 0.7 (1.0-1.7); CALCIUM 8.5 mg/dL (8.5-10.1); CREATININE 0.5 mg/dL (0.6-1.0); GFR 154.3; POTASSIUM 3.9 mmol/L (3.5-5.1); TOTAL BILIRUBIN 0.4 mg/dL (0.2-1.0); TOTAL PROTEIN 5.3 g/dL (6.4-8.2)
[2018-08-14] MEDS ORDERED: ONDANSETRON ODT 4 MG TAB.RAPDIS. PO PRN (13:00)
[2018-08-14] MEDS ORDERED: PANTOPRAZOLE 40 MG TABLET.DR. PO ONE (17:00)
--- NOTE | 2018-08-14 17:44 | PDOC1 ---
OB - History Hx of Present Care: Good Care Ultrasounds: Normal mid trimester US Obstetrical Complications: Hyperemesis Medical Complications: None Past Family/Social History * Past Medical, Surgical, Family and Obstetric Histories reviewed from chart. Blood Type: Unknown Rubella: Unknown RPR/VDRL: Unknown GBS Status: Unknown HBsAG: Unknown OB - Chief Complaint & HPI Date of Admission: Date of Admission: Aug 13, 2018 at 19:07 Chief Complaint/History : 1 Para: 0 EGA: 25 Reason for admission: other (N/V) Admission Nurse Assessment Rev: Yes OB - Admission Exam Physical Exam HEENT: Other (dry skin, dry mucous membranes) Heart: Regular Rate Lungs: Clear Abdomen: Gravid, Non tender, Soft Extremities: Edema Reflexes: Normal Cervical Dilatation: None Effacement: 0% Station: Ballotable Membranes: Intact Heart Rate: Normal Accelerations: Accelerations Present Decelerations: No decelerations Contractions on Admission: None Text A: 25 wks IUP N/V with electrolyte imbalance P: IV hydration, antiemetics and antiacids. D/c home when tolerating liquids/ solids. TAMI IVY Jr, MD Aug 14, 2018 17:43
== END 2018-08-14 19:14 | disposition still patient (30) ==
LOC: 3 SO LND 19:07
PROVIDERS: ADMIT Obstetrics & Gynecology; ATTEND Obstetrics & Gynecology
DX: O21.2 Late vomiting of pregnancy (principal); Z3A.25 25 weeks gestation of pregnancy
CPT/HCPCS: 36415; 80053; 80307; 81001; 82150; 83690; 87086; 87804; 96361; 96374; 96375; 96376; C9113; G0378; G0379; J2405; J7120

== ENCOUNTER 2019-04-20 10:34 | Emergency (ER) | payer MEDICAID, OTHER ==
[~2019-04-20] VITALS: Ht 160 cm; Wt 86.2 kg
[2019-04-20 10:41] VITALS: BP 124/74
--- NOTE | 2019-04-20 10:55 | PHYS DOC ---
Past Medical History Past Medical History: Asthma, Migraines, Seizure Past Surgical History: No Surgical History Alcohol Use: None Drug Use: Marijuana Adult General Chief Complaint Chief Complaint: HEADACHE HPI HPI 24-year-old female presents to the emergency Department complaints of migraine headache. Patient has underlying history of migraines states it started up last night describes as a pressure sensation. She describes nausea as well as vomiting. No fever, no visual changes. Light sensitivity is present as well as noise sensitivity. Nothing makes her pain worse, nothing makes her pain better. Review of Systems Review of Systems Constitutional: Denies fever or chills [] Eyes: Denies change in visual acuity, redness, or eye pain [] HENT: Denies nasal congestion or sore throat [] Respiratory: Denies cough or shortness of breath [] Cardiovascular: No additional information not addressed in HPI [] GI: Denies abdominal pain, nausea, vomiting, bloody stools or diarrhea [] Neurologic: + headache All other systems were reviewed and found to be within normal limits, except as documented in this note. Current Medications Current Medications Current Medications Medications (Trade) Dose Ordered Sig/Jack Start Time Stop Time Status Last Admin Dose Admin Diphenhydramine HCl (Benadryl) 50 mg 1X ONCE 04/20/19 11:00 04/20/19 11:01 DC 04/20/19 11:06 50 MG Ketorolac Tromethamine (Toradol 30mg Vial) 30 mg 1X ONCE 04/20/19 11:00 04/20/19 11:01 DC 04/20/19 11:06 30 MG Metoclopramide HCl (Reglan Vial) 10 mg 1X ONCE 04/20/19 11:00 04/20/19 11:01 DC 04/20/19 11:05 10 MG Allergies Allergies Allergies Coded Allergies Type Severity Reaction Last Updated Verified No Known Drug Allergies 01/28/17 No Physical Exam Physical Exam Constitutional: Well developed, well nourished, no acute distress, non-toxic appearance. [] HENT: Normocephalic, atraumatic, bilateral external ears normal, oropharynx moist, no oral exudates, nose normal. [] Eyes: PERRLA, EOMI, conjunctiva normal, no discharge. [] Neck: Normal range of motion, no tenderness, supple, no stridor. [] Cardiovascular:Heart rate regular rhythm, no murmur [] Lungs & Thorax: Bilateral breath sounds clear to auscultation [] Abdomen: Bowel sounds normal, soft, no tenderness, no masses, no pulsatile masses. [] Skin: Warm, dry, no erythema, no rash. [] Back: No tenderness, no CVA tenderness. [] Extremities: No tenderness, no cyanosis, no clubbing, ROM intact, no edema. [] Neurologic: Alert and oriented X 3, normal motor function, normal sensory function, no focal deficits noted. [] Psychologic: Affect normal, judgement normal, mood normal. [] Current Patient Data Vital Signs Vital Signs Date Time Temp Pulse Resp B/P (MAP) Pulse Ox O2 Delivery O2 Flow Rate FiO2 04/20/19 10:41 97.7 82 20 124/74 (91) 100 Room Air 97.7 Lab Values Laboratory Tests Test 04/20/19 10:51 POC Urine HCG, Qualitative Hcg negative (Negative) EKG EKG [] Radiology/Procedures Radiology/Procedures [] Course & Med Decision Making Course & Med Decision Making Pertinent Labs and Imaging studies reviewed. (See chart for details) [] 24-year-old female presents to the emergency Department complaints of migraine headache. Patient has underlying history of migraines states it started up last night describes as a pressure sensation. She describes nausea as well as vomiting. No fever, no visual changes. Light sensitivity is present as well as noise sensitivity. Nothing makes her pain worse, nothing makes her pain better. Toradol 30mg, Reglan 10mg, Benadryl 50mg IV - given upon arrival Re-assessment of patient [id number] with almost total resolution of patient's headache Plan zofran ODT upon discharge to have at home Return precautions provided Dragon Disclaimer Dragon Disclaimer This electronic medical record was generated, in whole or in part, using a voice recognition dictation system. Departure Departure Impression: Primary Impression: Migraine Disposition: 01 HOME, SELF-CARE Condition: STABLE Referrals: CHRISTA SELBY (PCP) Patient Instructions: Migraine Headache, [id number] Additional Instructions: Recommend follow up with PCP 3 - 5 days Return to the ER with worsening symptoms, intractable pain, fever, altered mental status Tylenol/Motrin as needed for pain Zofran rx provided upon discharge Scripts Ondansetron Hcl (ZOFRAN) 4 Mg Tablet 1 TAB PO Q6HRS, #20 TAB Prov: ANSELMO HILTON MD 04/20/19 [zofran] No Conflict Check 4 MG Q6-8HRS PRN for NAUSEA, #10 % Prov: ANSELMO HILTON MD 04/20/19 Problem Qualifiers Primary Impression: Migraine Migraine type: unspecified Status migrainosus presence: without status migrainosus Intractability: not intractable Qualified Codes: G43.909 - Migraine, unspecified, not intractable, without status migrainosus ANSELMO HILTON MD Apr 20, 2019 10:55
[2019-04-20] MEDS ORDERED: diphenhydrAMINE 50 MG/ML VIAL IVP ONE (11:00)
[2019-04-20] MEDS ORDERED: KETOROLAC 30 MG/ML VIAL. IVP ONE (11:00)
[2019-04-20] MEDS ORDERED: METOCLOPRAMIDE HCL 10 MG/2 ML VIAL. IVP ONE (11:00)
[2019-04-20] MEDS ORDERED: zofran (11:46)
[2019-04-20] MEDS ORDERED: ONDA4TAB7 PO (11:46)
== END 2019-04-20 11:54 | disposition home or self-care (01) ==
LOC: ER 10:34
DX: G43.909 Migraine, unspecified, not intractable, without status migrainosus (principal); J45.909 Unspecified asthma, uncomplicated
CPT/HCPCS: 81025; 96374; 96375; 99284; J1200; J1885; J2765

== ENCOUNTER 2019-05-04 17:28 | Emergency (ER) | payer MEDICAID ==
[~2019-05-04] VITALS: Ht 160 cm; Wt 86.2 kg
[~2019-05-04 17:28] MED LIST changes: +zofran
[2019-05-04 18:04] VITALS: BP 121/78
[2019-05-04] MEDS ORDERED: ORPH100T PO (18:09)
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
--- NOTE | 2019-05-04 20:09 | RAD ---
CT HEAD AND CERVICAL SPINE WO dated 05/04/2019 6:01 PM. Comparison: None. Clinical Indication: Pain after injury.. Technical factors: Contiguous 5 mm axial images of the head were obtained from the skullbase to the vertex. No contrast was administered. In addition, 3 mm axial images of the cervical spine were acquired with thin cut coronal and sagittal reconstructions. One or more of the following individualized dose reduction techniques were utilized for this examination: 1. Automated exposure control 2. Adjustment of the mA and/or kV according to patient size 3. Use of iterative reconstruction technique Findings head: Ventricles and sulci are within normal limits for age. No evidence of ventricular shift or mass effect. Brain parenchyma is of normal attenuation. There is no evidence of hemorrhage or extra-axial collection. Visualized paranasal sinuses and mastoid air cells are clear. No acute osseous abnormality. IMPRESSION HEAD: No evidence of acute intracranial abnormality. Findings cervical spine: Images were acquired from the skull base to T1. There is straightening of the normal cervical lordosis, otherwise sagittal alignment is anatomic. Vertebral body heights are maintained. No prevertebral soft tissue swelling. Posterior elements are intact. No fractures are identified. Minimal endplate hypertrophic changes with uncovertebral hypertrophy. Posterior elements are intact. No focal disc herniation. Bony canal and foramen are adequate. No signal soft tissue abnormality. Limited images of lung apices are clear. IMPRESSION CERVICAL SPINE: No evidence of fracture or malalignment. Electronically signed by: Eric Clayton MD (05/04/2019 8:06 PM) [facility]
[2019-05-04] MEDS ORDERED: IBUP-1007 PO (20:30)
== END 2019-05-04 20:33 | disposition home or self-care (01) ==
LOC: ER 17:28
DX: M54.2 Cervicalgia (principal); G43.909 Migraine, unspecified, not intractable, without status migrainosus; G89.11 Acute pain due to trauma; J45.909 Unspecified asthma, uncomplicated; V49.9XXA Car occupant (driver) (passenger) injured in unspecified traffic accident, initial encounter; Y93.89 Activity, other specified; Y92.89 Other specified places as the place of occurrence of the external cause; Y99.8 Other external cause status
CPT/HCPCS: 70450; 72125; 81025; 99284-25

== ENCOUNTER 2019-05-30 06:17 | Emergency (ER) | payer MEDICAID ==
[~2019-05-30] VITALS: Ht 160 cm; Wt 86.2 kg
[~2019-05-30 06:17] MED LIST changes: +IBUP-1007 PO; +ORPH100T PO
[2019-05-30] MEDS ORDERED: IV NORMAL SALINE 1000ML BAG 1,000 ML IV ONE (06:30)
[2019-05-30 06:50] LABS: BASO # 0.1 x10^3/uL (0.0-0.2); BASO % 1 % (0-3); EOS # 0.2 x10^3/uL (0.0-0.7); EOS % 2 % (0-3); HEMATOCRIT 40.5 % (36.0-47.0); HEMOGLOBIN 13.6 g/dL (12.0-15.5); LYMPH # 1.8 x10^3/uL (1.0-4.8); LYMPH % 24 % (24-48); MEAN CORPUSCULAR HEMOGLOBIN 30 pg (25-35); MEAN CORPUSCULAR HGB CONC 34 g/dL (31-37); MEAN CORPUSCULAR VOLUME 88 fL (79-100); MONO # 0.5 x10^3/uL (0.0-1.1); MONO % 6 % (0-9); NEUT % 67 % (31-73); PLATELET COUNT 241 x10^3/uL (140-400); RED BLOOD COUNT 4.63 x10^6/uL (3.50-5.40); RED CELL DISTRIBUTION WIDTH 12.4 % (11.5-14.5); WHITE BLOOD COUNT 7.5 x10^3/uL (4.0-11.0)
--- NOTE | 2019-05-30 06:50 | PHYS DOC ---
Past Medical History Past Medical History: Asthma, Migraines, Seizure (ALCIRA BESS DO) Past Surgical History: No Surgical History (ALCIRA BESS DO) Additional Information: Nonsmoker Alcohol Use: None Drug Use: Marijuana (ALCIRA BESS DO) Adult General Chief Complaint Chief Complaint: SEIZURE HPI HPI 24-year-old female presents via EMS with concern for possible seizure. EMS reports seizure was unwitnessed. Postictal upon EMS arrival. Patient does have a history of prior seizures for which she was previously treated with Lamictal. Patient has not been taking her seizure medications for the past year. Patient has stopped taking as she became concerned when she was . Reports she delivered approximately 6 months ago however never restarted any medications. Patient reports she was not advised to stop the medication but rather did so on her own accord. Reports some associated nausea. (ALCIRA BESS DO) Review of Systems Review of Systems Constitutional: Denies fever or chills Eyes: Denies redness or eye pain HENT: Denies nasal congestion or sore throat; reports tongue pain Respiratory: Denies cough or shortness of breath Cardiovascular: Denies chest pain or palpitations GI: Denies abdominal pain, nausea, or vomiting : Denies dysuria or hematuria Musculoskeletal: Denies back pain or joint pain Integument: Denies rash or skin lesions Neurologic: Denies headache, focal weakness or sensory changes; reports seizure activity and confusion Complete systems were reviewed and found to be within normal limits, except as documented in this note. (ALCIRA BESS DO) Current Medications Current Medications Current Medications Medications (Trade) Dose Ordered Sig/Jack Start Time Stop Time Status Last Admin Dose Admin Ondansetron HCl (Zofran) 4 mg 1X ONCE 05/30/19 07:00 05/30/19 07:01 DC 05/30/19 07:00 4 MG Sodium Chloride 1,000 ml @ 1,000 mls/hr 1X ONCE 05/30/19 06:30 05/30/19 07:29 DC 05/30/19 06:50 1,000 MLS/HR (LORNA REID DO) Allergies Allergies Allergies Coded Allergies Type Severity Reaction Last Updated Verified No Known Drug Allergies 01/28/17 No (LORNA REID DO) Physical Exam Physical Exam Constitutional: Well developed, well nourished, no acute distress, non-toxic appearance HENT: Normocephalic, atraumatic, oropharynx moist, tongue abrasions noted Eyes: PERRL, EOMI, conjunctiva normal, no discharge Neck: Normal range of motion, no tenderness, supple Cardiovascular: Heart rate normal, regular rhythm Lungs & Thorax: Bilateral breath sounds clear to auscultation, no wheezing Abdomen: Soft, no tenderness Skin: Warm, dry, no erythema, no rash Extremities: No tenderness, ROM intact, no edema Neurologic: Alert and oriented X 3, normal motor function, normal sensory function, no focal deficits noted Psychologic: Affect anxious, judgement normal (ALCIRA BESS ) Current Patient Data Vital Signs Vital Signs Date Time Temp Pulse Resp B/P (MAP) Pulse Ox O2 Delivery O2 Flow Rate FiO2 05/30/19 07:52 18 97 05/30/19 06:17 98.4 94 118/67 (84) Room Air 98.4 ([facility]) Lab Values Laboratory Tests Test 05/30/19 06:26 05/30/19 06:27 05/30/19 06:33 05/30/19 06:42 Ethyl Alcohol Level < 10 mg/dL (0-10) Urine Opiates Screen Neg (NEG) Urine Methadone Screen Neg (NEG) Urine Barbiturates Neg (NEG) Urine Phencyclidine Screen Neg (NEG) Urine Amphetamine/Methamphetamine Neg (NEG) Urine Benzodiazepines Screen Neg (NEG) Urine Cocaine Screen Neg (NEG) Urine Cannabinoids Screen Pos (NEG) Urine Ethyl Alcohol Neg (NEG) POC Urine HCG, Qualitative Hcg negative (Negative) White Blood Count 7.5 x10^3/uL (4.0-11.0) Red Blood Count 4.63 x10^6/uL (3.50-5.40) Hemoglobin 13.6 g/dL (12.0-15.5) Hematocrit 40.5 % (36.0-47.0) Mean Corpuscular Volume 88 fL (79-100) Mean Corpuscular Hemoglobin 30 pg (25-35) Mean Corpuscular Hemoglobin Concent 34 g/dL (31-37) Red Cell Distribution Width 12.4 % (11.5-14.5) Platelet Count 241 x10^3/uL (140-400) Neutrophils (%) (Auto) 67 % (31-73) Lymphocytes (%) (Auto) 24 % (24-48) Monocytes (%) (Auto) 6 % (0-9) Eosinophils (%) (Auto) 2 % (0-3) Basophils (%) (Auto) 1 % (0-3) Neutrophils # (Auto) 5.0 x10^3/uL (1.8-7.7) Lymphocytes # (Auto) 1.8 x10^3/uL (1.0-4.8) Monocytes # (Auto) 0.5 x10^3/uL (0.0-1.1) Eosinophils # (Auto) 0.2 x10^3/uL (0.0-0.7) Basophils # (Auto) 0.1 x10^3/uL (0.0-0.2) Sodium Level 138 mmol/L (136-145) Potassium Level 4.3 mmol/L (3.5-5.1) Chloride Level 104 mmol/L (98-107) Carbon Dioxide Level 23 mmol/L (21-32) Anion Gap 11 (6-14) Blood Urea Nitrogen 18 mg/dL (7-20) Creatinine 0.8 mg/dL (0.6-1.0) Estimated GFR (Cockcroft-Gault) 88.9 BUN/Creatinine Ratio 23 (6-20) H Glucose Level 204 mg/dL (70-99) H Calcium Level 8.9 mg/dL (8.5-10.1) Total Bilirubin 0.3 mg/dL (0.2-1.0) Aspartate Amino Transferase (AST) 11 U/L (15-37) L Alanine Aminotransferase (ALT) 16 U/L (14-59) Alkaline Phosphatase 132 U/L (46-116) H Creatine Kinase 131 U/L (26-192) Total Protein 7.0 g/dL (6.4-8.2) Albumin 3.7 g/dL (3.4-5.0) Albumin/Globulin Ratio 1.1 (1.0-1.7) Test 05/30/19 06:53 Lactic Acid Level 2.0 mmol/L (0.4-2.0) Laboratory Tests 05/30/19 06:42 Laboratory Tests 05/30/19 06:42 (LORNA REID DO) EKG EKG @0643 NSR at 84bpm, NO ST elevation, QRS 72ms, QT/QTc 336/400ms (BESS,ALCIRA R DO) Radiology/Procedures Radiology/Procedures [] (ALCIRA BESS DO) Course & Med Decision Making Course & Med Decision Making Pertinent Labs and Imaging studies reviewed. (See chart for details) Patient with past medical history of seizures for which she is currently not been taking any antiseizure medication presents with report of probable unwitnessed seizure. Patient apparently was post ictal per EMS. Patient currently neurologically intact. Labs obtained and pending at this time. EKG stable. Sign out given to Dr. Reid for further evaluation and final disposition. Discussed findings and plan with patient, who acknowledges understanding and agreement. (ALCIRA BESS DO) Course & Med Decision Making Patient alert and oriented x 3 and is no longer postictal in the emergency department. She complains of mild residual headache. She is neurologically intact. Lab work reviewed. Will resume Lamictal instructions to follow-up with her PCP and neurologist for further management of seizure disorder. She is instructed not to drive until cleared by her neurologist or primary care provider. Return precautions reviewed. (LORNA REID DO) Dragon Disclaimer Dragon Disclaimer This electronic medical record was generated, in whole or in part, using a voice recognition dictation system. (ALCIRA BESS DO) Departure Departure Impression: Primary Impression: Seizure-like activity Disposition: 01 HOME, SELF-CARE Condition: STABLE Referrals: CHRISTA SELBY (PCP) Patient Instructions: Seizure Disorder, Child, Generalized Tonic-Clonic Additional Instructions: Please resume Lamictal and do not drive or perform any potentially dangerous activity until cleared by your primary care physician or neurologist. Scripts Lamotrigine (LAMICTAL) 25 Mg Tablet 1 TAB PO BID, #60 TAB 1 Refill Prov: LORNA REID DO 05/30/19 ALCIRA BESS DO May 30, 2019 06:50 LORNA REID DO May 30, 2019 08:38
[2019-05-30 06:58] LABS: AMPHETAMINE/METHAMPHETAMINE NEG (NEG); BARBITURATES NEG (NEG); BENZODIAZEPINES NEG (NEG); CANNABINOIDS POS (NEG); COCAINE NEG (NEG); METHADONE NEG (NEG); OPIATES NEG (NEG); PHENCYCLIDINE NEG (NEG)
[2019-05-30 07:00] LABS: CALCIUM 8.9 mg/dL (8.5-10.1); CREATININE 0.8 mg/dL (0.6-1.0); GFR 88.9; POTASSIUM 4.3 mmol/L (3.5-5.1)
[2019-05-30] MEDS ORDERED: ONDANSETRON PF 4 MG/2 ML VIAL. IVP ONE ×2 (07:00→08:45)
[2019-05-30 07:07] LABS: ALBUMIN 3.7 g/dL (3.4-5.0); ALBUMIN/GLOBULIN RATIO 1.1 (1.0-1.7); TOTAL BILIRUBIN 0.3 mg/dL (0.2-1.0)
[2019-05-30] MEDS ORDERED: LAMO25TA5 PO (08:37)
[2019-05-30] MEDS ORDERED: MORPHINE SULFATE 4 MG/ML VIAL. ONE (08:39)
[2019-05-30] MEDS ORDERED: MORPHINE SULFATE 4 MG/ML VIAL. IV ONE (08:45)
[2019-05-30] MEDS ORDERED: ACETAMINOPHEN 325 MG TABLET. PO ONE (09:00)
[2019-05-30 09:11] VITALS: BP 133/77
--- NOTE | 2019-05-30 10:08 | EKG ---
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
== END 2019-05-30 09:18 | disposition home or self-care (01) ==
LOC: ER 06:17
DX: R56.9 Unspecified convulsions (principal); R11.0 Nausea; G43.909 Migraine, unspecified, not intractable, without status migrainosus; J45.909 Unspecified asthma, uncomplicated
CPT/HCPCS: 36415; 80053; 80307; 81025; 82550; 83605; 85025; 93005; 96361; 96374; 99285; G0480; J2405; J7030

== ENCOUNTER 2020-04-09 12:22 | Inpatient (IN) | payer MEDICAID ==
[~2020-04-09] VITALS: Ht 160 cm; Wt 80.3 kg
[~2020-04-09 12:22] MED LIST changes: +FOLI1CAP9 PO; +LAMO25TA5 PO; +LAMO300T PO; +NORE0.352 PO
[2020-04-09] MEDS ORDERED: IV NORMAL SALINE 1000ML BAG 1,000 ML IV ONE ×3 (12:45→14:00)
[2020-04-09] MEDS ORDERED: ONDANSETRON PF 4 MG/2 ML VIAL. IVP ONE (12:45)
[2020-04-09 12:46] LABS: BILIRUBIN,URINE NEGATIVE (NEG); CLARITY,URINE CLEAR; COLOR,URINE YELLOW; NITRITE,URINE NEGATIVE (NEG); PH,URINE 5.5 (<5.0-8.0); PROTEIN,URINE 30 mg/dL (NEG-TRACE); UROBILINOGEN,URINE 0.2 mg/dL (0.2 mg/dL)
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
[2020-04-09 12:53] LABS: BASO % 0 % (0-3); EOS % 0 % (0-3); HEMATOCRIT 41.4 % (36.0-47.0); HEMOGLOBIN 14.3 g/dL (12.0-15.5); LYMPH # 0.9 x10^3/uL (1.0-4.8); LYMPH % 5 % (24-48); MEAN CORPUSCULAR HEMOGLOBIN 30 pg (25-35); MEAN CORPUSCULAR HGB CONC 35 g/dL (31-37); MEAN CORPUSCULAR VOLUME 88 fL (79-100); MONO # 0.4 x10^3/uL (0.0-1.1); MONO % 2 % (0-9); NEUT # 16.8 x10^3/uL (1.8-7.7); NEUT % 93 % (31-73); PLATELET COUNT 295 x10^3/uL (140-400); RED BLOOD COUNT 4.71 x10^6/uL (3.50-5.40); RED CELL DISTRIBUTION WIDTH 13.1 % (11.5-14.5); WHITE BLOOD COUNT 18.1 x10^3/uL (4.0-11.0)
[2020-04-09 12:59] LABS: BARBITURATES NEG (NEG); BENZODIAZEPINES NEG (NEG); CANNABINOIDS POS (NEG); COCAINE NEG (NEG); METHADONE NEG (NEG); OPIATES NEG (NEG); PHENCYCLIDINE NEG (NEG)
[2020-04-09 13:01] LABS: AMPHETAMINE/METHAMPHETAMINE NEG (NEG)
[2020-04-09 13:04] LABS: PROTHROMBIN TIME PATIENT 13.5 SEC (11.7-14.0)
[2020-04-09 13:07] LABS: CALCIUM 9.9 mg/dL (8.5-10.1); GFR 68.1; POTASSIUM 4.1 mmol/L (3.5-5.1)
[2020-04-09 13:09] LABS: AMORPHOUS SEDIMENT,UR PRESENT /HPF; BACTERIA,URINE FEW /HPF (0-FEW)
[2020-04-09 13:10] LABS: ALBUMIN 4.6 g/dL (3.4-5.0); ALBUMIN/GLOBULIN RATIO 1.4 (1.0-1.7); MAGNESIUM 1.9 mg/dL (1.8-2.4); TOTAL BILIRUBIN 0.4 mg/dL (0.2-1.0)
--- NOTE | 2020-04-09 13:48 | RAD ---
EXAM: Chest, 2 views. HISTORY: Vomiting. Dizziness. COMPARISON: 12/28/2019 FINDINGS: 2 views of the chest are obtained. There is no infiltrate, pleural effusion or pneumothorax. The heart is normal in size. IMPRESSION: No acute pulmonary finding. Electronically signed by: Veronica Andrade MD (04/09/2020 1:46 PM) [id number]
[2020-04-09] MEDS ORDERED: PROCHLORPERAZINE 10 MG/2 ML VIAL. IV ONE (14:00)
[2020-04-09] MEDS ORDERED: INSULIN REGULAR VIAL 100 UNIT in IV NORMAL SALINE 100ML 100 ML IV PRN (14:00)
--- NOTE | 2020-04-09 14:12 | RAD ---
EXAM: Abdomen, 2 views. HISTORY: Nausea and vomiting. COMPARISON: 12/27/2019 FINDINGS: 2 views of the abdomen are obtained. There is no evidence of bowel obstruction. There is a small amount of gas and stool within the colon. There is no free air. IMPRESSION: Nonobstructive bowel gas pattern. Electronically signed by: Veronica Andrade MD (04/09/2020 2:09 PM) [id number]
[2020-04-09 14:13] LABS: % BANDS 4 % (0-9); % BASOS 2 % (0-3); % LYMPHS 6 % (24-48); % MONOS 1 % (0-10); % SEGS 87 % (35-66); PLT ESTIMATE ADEQUATE (ADEQUATE)
[2020-04-09] MEDS ORDERED: ONDANSETRON PF 4 MG/2 ML VIAL. IV PRN (15:15)
[2020-04-09 15:23] LABS: BASE EXCESS COOX -4 mmol/L (-3-3); HCO3 COOX 18 mmol/L (21-28); METHEMOGLOBIN 0.6 % (0.0-1.9); OXYHEMOGLOBIN 95.9 %; PCO2 COOX 27 mmHg (35-46); PO2 COOX 84 mmHg (85-108); SAT O2 COOX 97 % (92-99)
--- NOTE | 2020-04-09 16:53 | PDOC1 ---
History and Physical Date of Service: DOS: DATE: 04/09/20 TIME: 16:45 Chief Complaint: Chief Complain: Intractable nausea vomiting History of Present Illness: HPI: 25 year old female who presents with last night drink a lot of yanira and was drunk and also smoking marijuana. States this morning she awoke in she is unable to stop vomiting. She denies any abdominal pain, chest pain, shortness of air, diarrhea, fever, cough, syncope, focal weakness, numbness or tingling, vision changes. She states that she feels like the room is spinning. Patient is very anxious. Patient has a history of gestational diabetes after she had the baby 6 months ago she is post to start metformin and never did. Patient also has a history of asthma, migraines, seizures. She states she takes all medications except for the metformin daily as she is supposed to. She denies any seizure activity. Past Medical/Surgical History: PMH/PSH: Past Medical History: Asthma, Diabetes-Type II, Migraines, Seizure Past Surgical History: No Surgical History Allergies: Allergies: Coded Allergies: No Known Drug Allergies (Unverified , 01/28/17) Family History: Family History: Reviewed and none reported Social History: Social History: Smoking Status: Never Smoker Alcohol Use: None Drug Use: Marijuana Current Medications: Current Medications Current Medications Sodium Chloride 1,000 ml @ 1,000 mls/hr 1X ONCE IV Last administered on 04/09/20at 12:48; Start 04/09/20 at 12:45; Stop 04/09/20 at 13:44; Status DC Sodium Chloride 1,000 ml @ 1,000 mls/hr 1X ONCE IV Last administered on 04/09/20at 12:49; Start 04/09/20 at 12:45; Stop 04/09/20 at 13:44; Status DC Ondansetron HCl (Zofran) 4 mg 1X ONCE IVP Last administered on 04/09/20at 12:49; Start 04/09/20 at 12:45; Stop 04/09/20 at 12:46; Status DC Prochlorperazine Edisylate (Compazine) 10 mg 1X ONCE IV Last administered on 04/09/20at 13:53; Start 04/09/20 at 14:00; Stop 04/09/20 at 14:01; Status DC Sodium Chloride 1,000 ml @ 150 mls/hr 1X ONCE IV Last administered on 04/09/20at 14:07; Start 04/09/20 at 14:00; Stop 04/09/20 at 20:39 Insulin Human Regular 100 unit/ Sodium Chloride 101 ml @ 0 mls/hr CONT PRN IV SEE I/O RECORD; Start 04/09/20 at 14:00 Ondansetron HCl (Zofran) 4 mg PRN Q8HRS PRN IV NAUSEA/VOMITING Last administered on 04/09/20at 16:10; Start 04/09/20 at 15:15; Stop 04/10/20 at 15:14 Active Scripts Active Reported Norethindrone 0.35 Mg Tablet 1 Tab PO DAILY Mynephrocaps Softgel (Folic Acid/Vitamin B Comp W-C) 1 Mg Capsule 4 Mg PO DAILY Lamictal Xr (Lamotrigine) 300 Mg Tab.er.24 300 Mg PO DAILY ROS: Review of Systems Review of System REVIEW OF SYSTEMS: GENERAL: Denies weakness SKIN: No bruising, hair changes or rashes. EYES: No blurred, double or loss of vision. NOSE AND THROAT: No history of nosebleeds, hoarseness or sore throat. HEART: No history of palpitations, chest pain or shortness of breath on exertion. LUNGS: Denies cough, hemoptysis, wheezing or shortness of breath. GASTROINTESTINAL: Denies changes in appetite, nausea, vomiting, diarrhea or constipation. GENITOURINARY: No history of frequency, urgency, hesitancy or nocturia. NEUROLOGIC: Denies history of numbness, tingling, or tremor. PSYCHIATRIC: No history of panic, anxiety or depression. ENDOCRINE: No history of heat or cold intolerance, polyuria or polydipsia. EXTREMITIES: Denies joint pain, pain on walking or stiffness. Physical Exam: Vital Signs: Vital Signs Date Time Temp Pulse Resp B/P (MAP) Pulse Ox O2 Delivery O2 Flow Rate FiO2 04/09/20 15:23 82 20 123/66 (85) 100 Room Air 04/09/20 12:34 98.4 98.4 Physcial Exam: GEN: No apparent distress. Alert and oriented HEENT: Normal cephalic, atraumatic, external auditory canals are patent EYES: Extraocular muscles are intact, pupil are equally round and reactive to light and accommodation MUSCULOSKELETAL: Well developed , well nourished, good range of motion ENDOCRINE: No thyromegaly was palpated LYMPHATICS: No cervical chain or axillary nodes were noted HEMATOPOIETIC: No bruising NECK: Supple, no JVD, no thyromegaly was noted LUNGS: Clear to auscultation in all lung viera without rhonchi or wheezing HEART: RRR, S!, S2 present. Peripheral pulses intact, no obvious murmurs noted ABDOMEN: Soft, nontender. Positive bowel sounds, no organomegaly, normal bowel sounds EXTREMITIES: Without clubbing, cyanosis, or edema. Pedal pulses intact. Negative Homans sign NEUROLOGIC: Normal speech and tone. A&O x 3, moves all extremities, no obvious focal deficits PSYCHIATRIC: Normal affect, normal mood. Stable SKIN: No ulcerations or rashes, good skin turgor, no jaundice VASCULAR: Good capillary refill, neurovascular bundle appears to be intact Labs: Labs: Laboratory Tests Test 04/09/20 12:25 04/09/20 12:32 04/09/20 12:34 04/09/20 12:41 Urine Collection Type Unknown Urine Color Yellow Urine Clarity Clear Urine pH 5.5 (<5.0-8.0) Urine Specific [place] >=1.030 (1.000-1.030) Urine Protein 30 mg/dL (NEG-TRACE) Urine Glucose (UA) >=1000 mg/dL (NEG) Urine Ketones (Stick) >=80 mg/dL (NEG) Urine Blood Moderate (NEG) Urine Nitrite Negative (NEG) Urine Bilirubin Negative (NEG) Urine Urobilinogen Dipstick 0.2 mg/dL (0.2 mg/dL) Urine Leukocyte Esterase Negative (NEG) Urine RBC 3-5 /HPF (0-2) Urine WBC 1-4 /HPF (0-4) Urine Squamous Epithelial Cells Mod /LPF Urine Amorphous Sediment Present /HPF Urine Bacteria Few /HPF (0-FEW) Urine Mucus Mod /LPF Glucose (Fingerstick) 324 mg/dL (70-99) White Blood Count 18.1 x10^3/uL (4.0-11.0) Red Blood Count 4.71 x10^6/uL (3.50-5.40) Hemoglobin 14.3 g/dL (12.0-15.5) Hematocrit 41.4 % (36.0-47.0) Mean Corpuscular Volume 88 fL (79-100) Mean Corpuscular Hemoglobin 30 pg (25-35) Mean Corpuscular Hemoglobin Concent 35 g/dL (31-37) Red Cell Distribution Width 13.1 % (11.5-14.5) Platelet Count 295 x10^3/uL (140-400) Neutrophils (%) (Auto) 93 % (31-73) Lymphocytes (%) (Auto) 5 % (24-48) Monocytes (%) (Auto) 2 % (0-9) Eosinophils (%) (Auto) 0 % (0-3) Basophils (%) (Auto) 0 % (0-3) Neutrophils # (Auto) 16.8 x10^3/uL (1.8-7.7) Lymphocytes # (Auto) 0.9 x10^3/uL (1.0-4.8) Monocytes # (Auto) 0.4 x10^3/uL (0.0-1.1) Eosinophils # (Auto) 0.0 x10^3/uL (0.0-0.7) Basophils # (Auto) 0.0 x10^3/uL (0.0-0.2) Segmented Neutrophils % 87 % (35-66) Band Neutrophils % 4 % (0-9) Lymphocytes % 6 % (24-48) Monocytes % 1 % (0-10) Basophils % 2 % (0-3) Platelet Estimate Adequate (ADEQUATE) Sodium Level 137 mmol/L (136-145) Potassium Level 4.1 mmol/L (3.5-5.1) Chloride Level 100 mmol/L (98-107) Carbon Dioxide Level 16 mmol/L (21-32) Anion Gap 21 (6-14) Blood Urea Nitrogen 10 mg/dL (7-20) Creatinine 1.0 mg/dL (0.6-1.0) Estimated GFR (Cockcroft-Gault) 68.1 BUN/Creatinine Ratio 10 (6-20) Glucose Level 337 mg/dL (70-99) Calcium Level 9.9 mg/dL (8.5-10.1) Phosphorus Level 2.9 mg/dL (2.6-4.7) Magnesium Level 1.9 mg/dL (1.8-2.4) Total Bilirubin 0.4 mg/dL (0.2-1.0) Aspartate Amino Transf (AST/SGOT) 13 U/L (15-37) Alanine Aminotransferase (ALT/SGPT) 17 U/L (14-59) Alkaline Phosphatase 97 U/L (46-116) Total Protein 8.0 g/dL (6.4-8.2) Albumin 4.6 g/dL (3.4-5.0) Albumin/Globulin Ratio 1.4 (1.0-1.7) Acetone Level Neg (NEG) Bedside Urine HCG, Qualitative Hcg negative (Negative) Test 04/09/20 12:43 04/09/20 15:15 04/09/20 16:01 Prothrombin Time 13.5 SEC (11.7-14.0) Prothromb Time International Ratio 1.1 (0.8-1.1) Lipase 62 U/L (73-393) Urine Opiates Screen Neg (NEG) Urine Methadone Screen Neg (NEG) Urine Barbiturates Neg (NEG) Urine Phencyclidine Screen Neg (NEG) Urine Amphetamine/Methamphetamine Neg (NEG) Urine Benzodiazepines Screen Neg (NEG) Urine Cocaine Screen Neg (NEG) Urine Cannabinoids Screen Pos (NEG) Ethyl Alcohol Level < 10 mg/dL (0-10) Urine Ethyl Alcohol Neg (NEG) O2 Saturation 97 % (92-99) Arterial Blood pH 7.45 (7.35-7.45) Arterial Blood pCO2 at Patient Temp 27 mmHg (35-46) Arterial Blood pO2 at Patient Temp 84 mmHg (85-108) Arterial Blood HCO3 18 mmol/L (21-28) Arterial Blood Base Excess -4 mmol/L (-3-3) Oxyhemoglobin 95.9 % Methemoglobin 0.6 % (0.0-1.9) Carbon Monoxide, Quantitative 0.1 % (0.0-1.9) FiO2 21 Glucose (Fingerstick) 251 mg/dL (70-99) Laboratory Tests Test 04/09/20 12:25 04/09/20 12:32 04/09/20 12:34 04/09/20 12:41 Urine Collection Type Unknown Urine Color Yellow Urine Clarity Clear Urine pH 5.5 (<5.0-8.0) Urine Specific [place] >=1.030 (1.000-1.030) Urine Protein 30 mg/dL (NEG-TRACE) Urine Glucose (UA) >=1000 mg/dL (NEG) Urine Ketones (Stick) >=80 mg/dL (NEG) Urine Blood Moderate (NEG) Urine Nitrite Negative (NEG) Urine Bilirubin Negative (NEG) Urine Urobilinogen Dipstick 0.2 mg/dL (0.2 mg/dL) Urine Leukocyte Esterase Negative (NEG) Urine RBC 3-5 /HPF (0-2) Urine WBC 1-4 /HPF (0-4) Urine Squamous Epithelial Cells Mod /LPF Urine Amorphous Sediment Present /HPF Urine Bacteria Few /HPF (0-FEW) Urine Mucus Mod /LPF Glucose (Fingerstick) 324 mg/dL (70-99) White Blood Count 18.1 x10^3/uL (4.0-11.0) Red Blood Count 4.71 x10^6/uL (3.50-5.40) Hemoglobin 14.3 g/dL (12.0-15.5) Hematocrit 41.4 % (36.0-47.0) Mean Corpuscular Volume 88 fL (79-100) Mean Corpuscular Hemoglobin 30 pg (25-35) Mean Corpuscular Hemoglobin Concent 35 g/dL (31-37) Red Cell Distribution Width 13.1 % (11.5-14.5) Platelet Count 295 x10^3/uL (140-400) Neutrophils (%) (Auto) 93 % (31-73) Lymphocytes (%) (Auto) 5 % (24-48) Monocytes (%) (Auto) 2 % (0-9) Eosinophils (%) (Auto) 0 % (0-3) Basophils (%) (Auto) 0 % (0-3) Neutrophils # (Auto) 16.8 x10^3/uL (1.8-7.7) Lymphocytes # (Auto) 0.9 x10^3/uL (1.0-4.8) Monocytes # (Auto) 0.4 x10^3/uL (0.0-1.1) Eosinophils # (Auto) 0.0 x10^3/uL (0.0-0.7) Basophils # (Auto) 0.0 x10^3/uL (0.0-0.2) Segmented Neutrophils % 87 % (35-66) Band Neutrophils % 4 % (0-9) Lymphocytes % 6 % (24-48) Monocytes % 1 % (0-10) Basophils % 2 % (0-3) Platelet Estimate Adequate (ADEQUATE) Sodium Level 137 mmol/L (136-145) Potassium Level 4.1 mmol/L (3.5-5.1) Chloride Level 100 mmol/L (98-107) Carbon Dioxide Level 16 mmol/L (21-32) Anion Gap 21 (6-14) Blood Urea Nitrogen 10 mg/dL (7-20) Creatinine 1.0 mg/dL (0.6-1.0) Estimated GFR (Cockcroft-Gault) 68.1 BUN/Creatinine Ratio 10 (6-20) Glucose Level 337 mg/dL (70-99) Calcium Level 9.9 mg/dL (8.5-10.1) Phosphorus Level 2.9 mg/dL (2.6-4.7) Magnesium Level 1.9 mg/dL (1.8-2.4) Total Bilirubin 0.4 mg/dL (0.2-1.0) Aspartate Amino Transf (AST/SGOT) 13 U/L (15-37) Alanine Aminotransferase (ALT/SGPT) 17 U/L (14-59) Alkaline Phosphatase 97 U/L (46-116) Total Protein 8.0 g/dL (6.4-8.2) Albumin 4.6 g/dL (3.4-5.0) Albumin/Globulin Ratio 1.4 (1.0-1.7) Acetone Level Neg (NEG) Bedside Urine HCG, Qualitative Hcg negative (Negative) Test 04/09/20 12:43 04/09/20 15:15 04/09/20 16:01 Prothrombin Time 13.5 SEC (11.7-14.0) Prothromb Time International Ratio 1.1 (0.8-1.1) Lipase 62 U/L (73-393) Urine Opiates Screen Neg (NEG) Urine Methadone Screen Neg (NEG) Urine Barbiturates Neg (NEG) Urine Phencyclidine Screen Neg (NEG) Urine Amphetamine/Methamphetamine Neg (NEG) Urine Benzodiazepines Screen Neg (NEG) Urine Cocaine Screen Neg (NEG) Urine Cannabinoids Screen Pos (NEG) Ethyl Alcohol Level < 10 mg/dL (0-10) Urine Ethyl Alcohol Neg (NEG) O2 Saturation 97 % (92-99) Arterial Blood pH 7.45 (7.35-7.45) Arterial Blood pCO2 at Patient Temp 27 mmHg (35-46) Arterial Blood pO2 at Patient Temp 84 mmHg (85-108) Arterial Blood HCO3 18 mmol/L (21-28) Arterial Blood Base Excess -4 mmol/L (-3-3) Oxyhemoglobin 95.9 % Methemoglobin 0.6 % (0.0-1.9) Carbon Monoxide, Quantitative 0.1 % (0.0-1.9) FiO2 21 Glucose (Fingerstick) 251 mg/dL (70-99) Images: Images ABD XR IMPRESSION: Nonobstructive bowel gas pattern. Assessment/Plan Assessment/Plan DKA Cannabinoid hyperemesis syndrome Cannabinoid abuse Anion gap metabolic acidosis Uncontrolled diabetes with hyperglycemia Reactive leukocytosis ABG on admission pending urine and blood ketones Pending plasma osmolarity Continue serial inspections and examination for sources that caused ketoacidotic state Continue IV insulin starting at 0.1 units per kg When glucose is less than 200, AG is closed, patient able to eat, and HCO3 greater than 15, then transition with subcu insulin 0.1 units/kg every 2 hours for at least 2 hours Continue IV fluids of 1 to 1.5 L/h until a total of 5 L is replenished Switch to one half NS at half the rate if NA is normal or elevated As needed D50 W or add D5 to IV fluids if Accu-Cheks are less than 200 Maintain potassium between 3.5-5, if potassium falls below 3.3, stop insulin and add 40 mEq/h of potassium If arterial pH is below 6.9, give 100 mEq of sodium bicarb +20 mEq of potassium Every 2-4 hours BMP and a be checked until stable Every hour Accu-Cheks while on insulin Encourage hot showers Lovenox for DVT prophylaxis ADA diet Full code Discussed with RN and SW Disposition inpatient care as above Surrogate decision maker is Sai Barbosa Justifications for Admission Other Justification KAYLI RODRIGUEZ MD Apr 09, 2020 16:53
[2020-04-09 16:55] VITALS: BP 140/84
[2020-04-09] MEDS ORDERED: DOCUSATE SODIUM 100 MG CAPSULE. PO PRN (17:00)
[2020-04-09] MEDS ORDERED: SENNOSIDES 8.6 MG TABLET PO PRN (17:00)
[2020-04-09] MEDS ORDERED: ENOXAPARIN 40 MG/0.4 ML SYRINGE. SQ SCH (17:00)
[2020-04-09] MEDS ORDERED: DEXTROSE 50% 25 GM / 50ML DISP.SYRIN. IV PRN ×2 (17:00→19:00)
[2020-04-09] MEDS ORDERED: ACETAMINOPHEN 325 MG TABLET. PO PRN (17:00)
[2020-04-09 18:04] LABS: CALCIUM 8.5 mg/dL (8.5-10.1); CREATININE 0.8 mg/dL (0.6-1.0); GFR 88.1; POTASSIUM 3.6 mmol/L (3.5-5.1)
[2020-04-09] MEDS: INSULIN LISPRO 300 UNITS/3 ML VIAL. SQ PRN ×3 (19:11→21:19)
[2020-04-09 19:27] VITALS: BP 140/76
[2020-04-09] MEDS ORDERED: POTASSIUM CL 20MEQ D5-0.9%NACL 1,000 ML IV ONE (19:30)
[2020-04-09] MEDS: ONDANSETRON PF 4 MG/2 ML VIAL. IVP PRN (21:43)
[2020-04-09 22:08] LABS: CALCIUM 9.2 mg/dL (8.5-10.1); CREATININE 0.8 mg/dL (0.6-1.0); GFR 88.1
[2020-04-09 22:14] LABS: POTASSIUM 2.8 mmol/L (3.5-5.1)
[2020-04-09] MEDS: lamoTRIgine 100 MG TABLET. PO SCH (22:51)
[2020-04-09] MEDS: POTASSIUM CHLORIDE 40 MEQ in IV 1/2 NORMAL SALINE 1,000 ML IV SCH (22:53)
[2020-04-09 22:55] VITALS: BP 140/96
[2020-04-09] MEDS: POTASSIUM CHLORIDE 10MEQ 100 ML IV SCH (22:59)
[2020-04-09] MEDS ORDERED: POTASSIUM CHLORIDE 40 MEQ in IV 1/2 NORMAL SALINE 1,000 ML IV SCH (23:00)
[2020-04-10] MEDS: POTASSIUM CHLORIDE 10MEQ 100 ML IV SCH ×7 (00:10→05:56)
[2020-04-10 03:02] VITALS: BP 132/93
[2020-04-10] MEDS: POTASSIUM CHLORIDE 40 MEQ in IV 1/2 NORMAL SALINE 1,000 ML IV SCH (03:46)
[2020-04-10] MEDS: ONDANSETRON PF 4 MG/2 ML VIAL. IVP PRN ×2 (03:46→11:08)
[2020-04-10] MEDS ORDERED: PROCHLORPERAZINE 10 MG/2 ML VIAL. IM PRN (04:00)
[2020-04-10] MEDS ORDERED: METOCLOPRAMIDE HCL 10 MG/2 ML VIAL. IVP PRN (04:00)
[2020-04-10] MEDS ORDERED: PROCHLORPERAZINE 10 MG/2 ML VIAL. IV PRN (04:15)
[2020-04-10 05:01] LABS: BASO % 0 % (0-3); EOS % 0 % (0-3); HEMATOCRIT 39.4 % (36.0-47.0); HEMOGLOBIN 13.4 g/dL (12.0-15.5); LYMPH % 12 % (24-48); MEAN CORPUSCULAR HEMOGLOBIN 30 pg (25-35); MEAN CORPUSCULAR HGB CONC 34 g/dL (31-37); MEAN CORPUSCULAR VOLUME 89 fL (79-100); MONO # 1.2 x10^3/uL (0.0-1.1); MONO % 7 % (0-9); NEUT # 13.5 x10^3/uL (1.8-7.7); NEUT % 80 % (31-73); PLATELET COUNT 274 x10^3/uL (140-400); RED BLOOD COUNT 4.45 x10^6/uL (3.50-5.40); RED CELL DISTRIBUTION WIDTH 13.4 % (11.5-14.5); WHITE BLOOD COUNT 16.8 x10^3/uL (4.0-11.0)
[2020-04-10 05:11] LABS: CALCIUM 9.1 mg/dL (8.5-10.1); CREATININE 0.7 mg/dL (0.6-1.0); GFR 102.8; POTASSIUM 4.4 mmol/L (3.5-5.1)
[2020-04-10] MEDS: INSULIN LISPRO 300 UNITS/3 ML VIAL. SQ PRN (05:26)
--- NOTE | 2020-04-10 05:44 | EKG ---
[facility] [address] [place] [address] Test Date: 2020-04-09 Test Time: 12:49:26 Pat Name: SONY MARQUEZ Department: Room: Gender: F [employer]: : 1995 Requested By: ANG FLOWERS Order Number: [id number] Reading MD: Measurements Intervals [place] Rate: 100 P: 53 MT: 164 QRS: 43 QRSD: 74 T: 20 QT: 344 QTc: 447 Interpretive Statements SINUS RHYTHM LEFT ATRIAL ABNORMALITY ABNORMAL ECG RI6.02 No previous ECG available for comparison
[2020-04-10 06:24] VITALS: BP 145/86
[2020-04-10] MEDS: lamoTRIgine 100 MG TABLET. PO SCH (08:20)
--- NOTE | 2020-04-10 10:08 | PDOC ---
PROGRESS NOTES Date of Service: DATE: 04/10/20 TIME: 10:07 Chief Complaint Chief Complaint Images: Images ABD XR IMPRESSION: Nonobstructive bowel gas pattern. discharge dx Assessment/Plan DKA Cannabinoid hyperemesis syndrome Cannabinoid abuse Anion gap metabolic acidosis Uncontrolled diabetes with hyperglycemia Reactive leukocytosis uncontrolled diabetes plan ABG on admission pending urine and blood ketones plasma osmolarity Continue serial inspections and examination for sources that caused ketoacidotic state Continue IV insulin starting at 0.1 units per kg When glucose is less than 200, AG is closed, patient able to eat, and HCO3 greater than 15, then transition with subcu insulin 0.1 units/kg every 2 hours for at least 2 hours Continue IV fluids of 1 to 1.5 L/h until a total of 5 L is replenished Switch to one half NS at half the rate if NA is normal or elevated As needed D50 W or add D5 to IV fluids if Accu-Cheks are less than 200 Maintain potassium between 3.5-5, if potassium falls below 3.3, stop insulin and add 40 mEq/h of potassium If arterial pH is below 6.9, give 100 mEq of sodium bicarb +20 mEq of potassium Every 2-4 hours BMP and a be checked until stable Every 3 hour Accu-Cheks while on insulin Encourage hot showers Lovenox for DVT prophylaxis ADA diet Full code Discussed with RN and SW Disposition inpatient care Surrogate decision maker is Sai Barbosa a1c add lantus 10 units sq hs diabetic teaching THC AVOIDANCE D/C PLANNING 32 MIN Justifications for Admission Justifications for Admission Other Justification History of Present Illness History of Present Illness Chief Complaint: Chief Complain: Intractable nausea vomiting History of Present Illness: HPI: 25 year old female who presents adka drank a lot of yanira and was drunk and also smoking marijuana. she awoke in she was unable to stop vomiting. She denies any abdominal pain, chest pain, shortness of air, diarrhea, fever, cough, syncope, focal weakness, numbness or tingling, vision changes. She states that she feels like the room is spinning. Patient is very anxious. Patient has a history of gestational diabetes after she had the baby 6 months ago she is post to start metformin and never did. Patient also has a history of asthma, migraines, seizures. She states she takes all medications except for the metformin daily as she is supposed to. She denies any seizure activity. Past Medical/Surgical History: PMH/PSH: Past Medical History: Asthma, Diabetes-Type II, Migraines, Seizure Past Surgical History: No Surgical History Allergies: Allergies: Coded Allergies: No Known Drug Allergies (Unverified , 01/28/17) Family History: Family History: Reviewed and none reported Social History: Social History: Smoking Status: Never Smoker Alcohol Use: None Drug Use: Marijuana Vitals Vitals Vital Signs Date Time Temp Pulse Resp B/P (MAP) Pulse Ox O2 Delivery O2 Flow Rate FiO2 04/10/20 06:24 99.5 93 16 145/86 (105) 98 Room Air 99.5 Physical Exam Physical Exam Physcial Exam: GEN: No apparent distress. Alert and oriented HEENT: Normal cephalic, atraumatic, external auditory canals are patent EYES: Extraocular muscles are intact, pupil are equally round and reactive to light and accommodation MUSCULOSKELETAL: Well developed , well nourished, good range of motion ENDOCRINE: No thyromegaly was palpated LYMPHATICS: No cervical chain or axillary nodes were noted HEMATOPOIETIC: No bruising NECK: Supple, no JVD, no thyromegaly was noted LUNGS: Clear to auscultation in all lung viera without rhonchi or wheezing HEART: RRR, S!, S2 present. Peripheral pulses intact, no obvious murmurs noted ABDOMEN: Soft, nontender. Positive bowel sounds, no organomegaly, normal bowel sounds EXTREMITIES: Without clubbing, cyanosis, or edema. Pedal pulses intact. Negative Homans sign NEUROLOGIC: Normal speech and tone. A&O x 3, moves all extremities, no obvious focal deficits PSYCHIATRIC: Normal affect, normal mood. Stable SKIN: No ulcerations or rashes, good skin turgor, no jaundice VASCULAR: Good capillary refill, neurovascular bundle appears to be intact General: Alert, Oriented X3, Cooperative, No acute distress Heart: Regular rate, Normal S1, Normal S2 Lungs: Clear Abdomen: Normal bowel sounds, Soft, No tenderness Extremities: No cyanosis Skin: No significant lesion Labs LABS EXAM: Chest, 2 views. HISTORY: Vomiting. Dizziness. COMPARISON: 12/28/2019 FINDINGS: 2 views of the chest are obtained. There is no infiltrate, pleural effusion or pneumothorax. The heart is normal in size. IMPRESSION: No acute pulmonary finding. Electronically signed by: Veronica Goins MD (04/09/2020 1:46 PM) [id number] DICTATED and SIGNED BY: VERONICA GOINS MD DATE: 04/09/20 134 Laboratory Tests Test 04/09/20 12:25 04/09/20 12:32 04/09/20 12:34 04/09/20 12:41 Urine Collection Type Unknown Urine Color Yellow Urine Clarity Clear Urine pH 5.5 (<5.0-8.0) Urine Specific [place] >=1.030 (1.000-1.030) Urine Protein 30 mg/dL (NEG-TRACE) Urine Glucose (UA) >=1000 mg/dL (NEG) Urine Ketones (Stick) >=80 mg/dL (NEG) Urine Blood Moderate (NEG) Urine Nitrite Negative (NEG) Urine Bilirubin Negative (NEG) Urine Urobilinogen Dipstick 0.2 mg/dL (0.2 mg/dL) Urine Leukocyte Esterase Negative (NEG) Urine RBC 3-5 /HPF (0-2) Urine WBC 1-4 /HPF (0-4) Urine Squamous Epithelial Cells Mod /LPF Urine Amorphous Sediment Present /HPF Urine Bacteria Few /HPF (0-FEW) Urine Mucus Mod /LPF Glucose (Fingerstick) 324 mg/dL (70-99) White Blood Count 18.1 x10^3/uL (4.0-11.0) Red Blood Count 4.71 x10^6/uL (3.50-5.40) Hemoglobin 14.3 g/dL (12.0-15.5) Hematocrit 41.4 % (36.0-47.0) Mean Corpuscular Volume 88 fL (79-100) Mean Corpuscular Hemoglobin 30 pg (25-35) Mean Corpuscular Hemoglobin Concent 35 g/dL (31-37) Red Cell Distribution Width 13.1 % (11.5-14.5) Platelet Count 295 x10^3/uL (140-400) Neutrophils (%) (Auto) 93 % (31-73) Lymphocytes (%) (Auto) 5 % (24-48) Monocytes (%) (Auto) 2 % (0-9) Eosinophils (%) (Auto) 0 % (0-3) Basophils (%) (Auto) 0 % (0-3) Neutrophils # (Auto) 16.8 x10^3/uL (1.8-7.7) Lymphocytes # (Auto) 0.9 x10^3/uL (1.0-4.8) Monocytes # (Auto) 0.4 x10^3/uL (0.0-1.1) Eosinophils # (Auto) 0.0 x10^3/uL (0.0-0.7) Basophils # (Auto) 0.0 x10^3/uL (0.0-0.2) Segmented Neutrophils % 87 % (35-66) Band Neutrophils % 4 % (0-9) Lymphocytes % 6 % (24-48) Monocytes % 1 % (0-10) Basophils % 2 % (0-3) Platelet Estimate Adequate (ADEQUATE) Sodium Level 137 mmol/L (136-145) Potassium Level 4.1 mmol/L (3.5-5.1) Chloride Level 100 mmol/L (98-107) Carbon Dioxide Level 16 mmol/L (21-32) Anion Gap 21 (6-14) Blood Urea Nitrogen 10 mg/dL (7-20) Creatinine 1.0 mg/dL (0.6-1.0) Estimated GFR (Cockcroft-Gault) 68.1 BUN/Creatinine Ratio 10 (6-20) Glucose Level 337 mg/dL (70-99) Calcium Level 9.9 mg/dL (8.5-10.1) Phosphorus Level 2.9 mg/dL (2.6-4.7) Magnesium Level 1.9 mg/dL (1.8-2.4) Total Bilirubin 0.4 mg/dL (0.2-1.0) Aspartate Amino Transf (AST/SGOT) 13 U/L (15-37) Alanine Aminotransferase (ALT/SGPT) 17 U/L (14-59) Alkaline Phosphatase 97 U/L (46-116) Total Protein 8.0 g/dL (6.4-8.2) Albumin 4.6 g/dL (3.4-5.0) Albumin/Globulin Ratio 1.4 (1.0-1.7) Acetone Level Neg (NEG) Bedside Urine HCG, Qualitative Hcg negative (Negative) Test 10/10/20 12:43 04/09/20 15:15 04/09/20 16:01 04/09/20 17:01 Prothrombin Time 13.5 SEC (11.7-14.0) Prothromb Time International Ratio 1.1 (0.8-1.1) Lipase 62 U/L (73-393) Urine Opiates Screen Neg (NEG) Urine Methadone Screen Neg (NEG) Urine Barbiturates Neg (NEG) Urine Phencyclidine Screen Neg (NEG) Urine Amphetamine/Methamphetamine Neg (NEG) Urine Benzodiazepines Screen Neg (NEG) Urine Cocaine Screen Neg (NEG) Urine Cannabinoids Screen Pos (NEG) Ethyl Alcohol Level < 10 mg/dL (0-10) Urine Ethyl Alcohol Neg (NEG) O2 Saturation 97 % (92-99) Arterial Blood pH 7.45 (7.35-7.45) Arterial Blood pCO2 at Patient Temp 27 mmHg (35-46) Arterial Blood pO2 at Patient Temp 84 mmHg (85-108) Arterial Blood HCO3 18 mmol/L (21-28) Arterial Blood Base Excess -4 mmol/L (-3-3) Oxyhemoglobin 95.9 % Methemoglobin 0.6 % (0.0-1.9) Carbon Monoxide, Quantitative 0.1 % (0.0-1.9) FiO2 21 Glucose (Fingerstick) 251 mg/dL (70-99) 241 mg/dL (70-99) Test 04/09/20 17:38 04/09/20 18:57 04/09/20 20:10 04/09/20 21:12 Sodium Level 137 mmol/L (136-145) Potassium Level 3.6 mmol/L (3.5-5.1) Chloride Level 103 mmol/L (98-107) Carbon Dioxide Level 23 mmol/L (21-32) Anion Gap 11 (6-14) Blood Urea Nitrogen 8 mg/dL (7-20) Creatinine 0.8 mg/dL (0.6-1.0) Estimated GFR (Cockcroft-Gault) 88.1 Glucose Level 253 mg/dL (70-99) Calcium Level 8.5 mg/dL (8.5-10.1) Magnesium Level 1.8 mg/dL (1.8-2.4) Glucose (Fingerstick) 238 mg/dL (70-99) 249 mg/dL (70-99) 215 mg/dL (70-99) Test 04/09/20 21:35 04/10/20 00:56 04/10/20 04:00 04/10/20 05:20 Sodium Level 140 mmol/L (136-145) 136 mmol/L (136-145) Potassium Level 2.8 mmol/L (3.5-5.1) 4.4 mmol/L (3.5-5.1) Chloride Level 105 mmol/L (98-107) 102 mmol/L (98-107) Carbon Dioxide Level 26 mmol/L (21-32) 22 mmol/L (21-32) Anion Gap 9 (6-14) 12 (6-14) Blood Urea Nitrogen 10 mg/dL (7-20) 8 mg/dL (7-20) Creatinine 0.8 mg/dL (0.6-1.0) 0.7 mg/dL (0.6-1.0) Estimated GFR (Cockcroft-Gault) 88.1 102.8 Glucose Level 197 mg/dL (70-99) 213 mg/dL (70-99) Calcium Level 9.2 mg/dL (8.5-10.1) 9.1 mg/dL (8.5-10.1) Glucose (Fingerstick) 142 mg/dL (70-99) 214 mg/dL (70-99) White Blood Count 16.8 x10^3/uL (4.0-11.0) Red Blood Count 4.45 x10^6/uL (3.50-5.40) Hemoglobin 13.4 g/dL (12.0-15.5) Hematocrit 39.4 % (36.0-47.0) Mean Corpuscular Volume 89 fL (79-100) Mean Corpuscular Hemoglobin 30 pg (25-35) Mean Corpuscular Hemoglobin Concent 34 g/dL (31-37) Red Cell Distribution Width 13.4 % (11.5-14.5) Platelet Count 274 x10^3/uL (140-400) Neutrophils (%) (Auto) 80 % (31-73) Lymphocytes (%) (Auto) 12 % (24-48) Monocytes (%) (Auto) 7 % (0-9) Eosinophils (%) (Auto) 0 % (0-3) Basophils (%) (Auto) 0 % (0-3) Neutrophils # (Auto) 13.5 x10^3/uL (1.8-7.7) Lymphocytes # (Auto) 2.0 x10^3/uL (1.0-4.8) Monocytes # (Auto) 1.2 x10^3/uL (0.0-1.1) Eosinophils # (Auto) 0.0 x10^3/uL (0.0-0.7) Basophils # (Auto) 0.0 x10^3/uL (0.0-0.2) Test 04/10/20 09:09 Glucose (Fingerstick) 197 mg/dL (70-99) Assessment and Plan Assessmemt and Plan Problems Medical Problems: (1) DKA (diabetic ketoacidoses) Status: Acute Comment Review of Relevant I have reviewed the following items ida (where applicable) has been applied. Labs Laboratory Tests Test 04/09/20 12:25 04/09/20 12:32 04/09/20 12:34 04/09/20 12:41 Urine Collection Type Unknown Urine Color Yellow Urine Clarity Clear Urine pH 5.5 (<5.0-8.0) Urine Specific [place] >=1.030 (1.000-1.030) Urine Protein 30 mg/dL (NEG-TRACE) Urine Glucose (UA) >=1000 mg/dL (NEG) Urine Ketones (Stick) >=80 mg/dL (NEG) Urine Blood Moderate (NEG) Urine Nitrite Negative (NEG) Urine Bilirubin Negative (NEG) Urine Urobilinogen Dipstick 0.2 mg/dL (0.2 mg/dL) Urine Leukocyte Esterase Negative (NEG) Urine RBC 3-5 /HPF (0-2) Urine WBC 1-4 /HPF (0-4) Urine Squamous Epithelial Cells Mod /LPF Urine Amorphous Sediment Present /HPF Urine Bacteria Few /HPF (0-FEW) Urine Mucus Mod /LPF Glucose (Fingerstick) 324 mg/dL (70-99) White Blood Count 18.1 x10^3/uL (4.0-11.0) Red Blood Count 4.71 x10^6/uL (3.50-5.40) Hemoglobin 14.3 g/dL (12.0-15.5) Hematocrit 41.4 % (36.0-47.0) Mean Corpuscular Volume 88 fL (79-100) Mean Corpuscular Hemoglobin 30 pg (25-35) Mean Corpuscular Hemoglobin Concent 35 g/dL (31-37) Red Cell Distribution Width 13.1 % (11.5-14.5) Platelet Count 295 x10^3/uL (140-400) Neutrophils (%) (Auto) 93 % (31-73) Lymphocytes (%) (Auto) 5 % (24-48) Monocytes (%) (Auto) 2 % (0-9) Eosinophils (%) (Auto) 0 % (0-3) Basophils (%) (Auto) 0 % (0-3) Neutrophils # (Auto) 16.8 x10^3/uL (1.8-7.7) Lymphocytes # (Auto) 0.9 x10^3/uL (1.0-4.8) Monocytes # (Auto) 0.4 x10^3/uL (0.0-1.1) Eosinophils # (Auto) 0.0 x10^3/uL (0.0-0.7) Basophils # (Auto) 0.0 x10^3/uL (0.0-0.2) Segmented Neutrophils % 87 % (35-66) Band Neutrophils % 4 % (0-9) Lymphocytes % 6 % (24-48) Monocytes % 1 % (0-10) Basophils % 2 % (0-3) Platelet Estimate Adequate (ADEQUATE) Sodium Level 137 mmol/L (136-145) Potassium Level 4.1 mmol/L (3.5-5.1) Chloride Level 100 mmol/L (98-107) Carbon Dioxide Level 16 mmol/L (21-32) Anion Gap 21 (6-14) Blood Urea Nitrogen 10 mg/dL (7-20) Creatinine 1.0 mg/dL (0.6-1.0) Estimated GFR (Cockcroft-Gault) 68.1 BUN/Creatinine Ratio 10 (6-20) Glucose Level 337 mg/dL (70-99) Calcium Level 9.9 mg/dL (8.5-10.1) Phosphorus Level 2.9 mg/dL (2.6-4.7) Magnesium Level 1.9 mg/dL (1.8-2.4) Total Bilirubin 0.4 mg/dL (0.2-1.0) Aspartate Amino Transf (AST/SGOT) 13 U/L (15-37) Alanine Aminotransferase (ALT/SGPT) 17 U/L (14-59) Alkaline Phosphatase 97 U/L (46-116) Total Protein 8.0 g/dL (6.4-8.2) Albumin 4.6 g/dL (3.4-5.0) Albumin/Globulin Ratio 1.4 (1.0-1.7) Acetone Level Neg (NEG) Bedside Urine HCG, Qualitative Hcg negative (Negative) Test 04/09/20 12:43 04/09/20 15:15 04/09/20 16:01 04/09/20 17:01 Prothrombin Time 13.5 SEC (11.7-14.0) Prothromb Time International Ratio 1.1 (0.8-1.1) Lipase 62 U/L (73-393) Urine Opiates Screen Neg (NEG) Urine Methadone Screen Neg (NEG) Urine Barbiturates Neg (NEG) Urine Phencyclidine Screen Neg (NEG) Urine Amphetamine/Methamphetamine Neg (NEG) Urine Benzodiazepines Screen Neg (NEG) Urine Cocaine Screen Neg (NEG) Urine Cannabinoids Screen Pos (NEG) Ethyl Alcohol Level < 10 mg/dL (0-10) Urine Ethyl Alcohol Neg (NEG) O2 Saturation 97 % (92-99) Arterial Blood pH 7.45 (7.35-7.45) Arterial Blood pCO2 at Patient Temp 27 mmHg (35-46) Arterial Blood pO2 at Patient Temp 84 mmHg (85-108) Arterial Blood HCO3 18 mmol/L (21-28) Arterial Blood Base Excess -4 mmol/L (-3-3) Oxyhemoglobin 95.9 % Methemoglobin 0.6 % (0.0-1.9) Carbon Monoxide, Quantitative 0.1 % (0.0-1.9) FiO2 21 Glucose (Fingerstick) 251 mg/dL (70-99) 241 mg/dL (70-99) Test 04/09/20 17:38 04/09/20 18:57 04/09/20 20:10 04/09/20 21:12 Sodium Level 137 mmol/L (136-145) Potassium Level 3.6 mmol/L (3.5-5.1) Chloride Level 103 mmol/L (98-107) Carbon Dioxide Level 23 mmol/L (21-32) Anion Gap 11 (6-14) Blood Urea Nitrogen 8 mg/dL (7-20) Creatinine 0.8 mg/dL (0.6-1.0) Estimated GFR (Cockcroft-Gault) 88.1 Glucose Level 253 mg/dL (70-99) Calcium Level 8.5 mg/dL (8.5-10.1) Magnesium Level 1.8 mg/dL (1.8-2.4) Glucose (Fingerstick) 238 mg/dL (70-99) 249 mg/dL (70-99) 215 mg/dL (70-99) Test 04/09/20 21:35 04/10/20 00:56 04/10/20 04:00 04/10/20 05:20 Sodium Level 140 mmol/L (136-145) 136 mmol/L (136-145) Potassium Level 2.8 mmol/L (3.5-5.1) 4.4 mmol/L (3.5-5.1) Chloride Level 105 mmol/L (98-107) 102 mmol/L (98-107) Carbon Dioxide Level 26 mmol/L (21-32) 22 mmol/L (21-32) Anion Gap 9 (6-14) 12 (6-14) Blood Urea Nitrogen 10 mg/dL (7-20) 8 mg/dL (7-20) Creatinine 0.8 mg/dL (0.6-1.0) 0.7 mg/dL (0.6-1.0) Estimated GFR (Cockcroft-Gault) 88.1 102.8 Glucose Level 197 mg/dL (70-99) 213 mg/dL (70-99) Calcium Level 9.2 mg/dL (8.5-10.1) 9.1 mg/dL (8.5-10.1) Glucose (Fingerstick) 142 mg/dL (70-99) 214 mg/dL (70-99) White Blood Count 16.8 x10^3/uL (4.0-11.0) Red Blood Count 4.45 x10^6/uL (3.50-5.40) Hemoglobin 13.4 g/dL (12.0-15.5) Hematocrit 39.4 % (36.0-47.0) Mean Corpuscular Volume 89 fL (79-100) Mean Corpuscular Hemoglobin 30 pg (25-35) Mean Corpuscular Hemoglobin Concent 34 g/dL (31-37) Red Cell Distribution Width 13.4 % (11.5-14.5) Platelet Count 274 x10^3/uL (140-400) Neutrophils (%) (Auto) 80 % (31-73) Lymphocytes (%) (Auto) 12 % (24-48) Monocytes (%) (Auto) 7 % (0-9) Eosinophils (%) (Auto) 0 % (0-3) Basophils (%) (Auto) 0 % (0-3) Neutrophils # (Auto) 13.5 x10^3/uL (1.8-7.7) Lymphocytes # (Auto) 2.0 x10^3/uL (1.0-4.8) Monocytes # (Auto) 1.2 x10^3/uL (0.0-1.1) Eosinophils # (Auto) 0.0 x10^3/uL (0.0-0.7) Basophils # (Auto) 0.0 x10^3/uL (0.0-0.2) Test 04/10/20 09:09 Glucose (Fingerstick) 197 mg/dL (70-99) Laboratory Tests Test 04/09/20 12:25 04/09/20 12:32 04/09/20 12:34 04/09/20 12:41 Urine Collection Type Unknown Urine Color Yellow Urine Clarity Clear Urine pH 5.5 (<5.0-8.0) Urine Specific [place] >=1.030 (1.000-1.030) Urine Protein 30 mg/dL (NEG-TRACE) Urine Glucose (UA) >=1000 mg/dL (NEG) Urine Ketones (Stick) >=80 mg/dL (NEG) Urine Blood Moderate (NEG) Urine Nitrite Negative (NEG) Urine Bilirubin Negative (NEG) Urine Urobilinogen Dipstick 0.2 mg/dL (0.2 mg/dL) Urine Leukocyte Esterase Negative (NEG) Urine RBC 3-5 /HPF (0-2) Urine WBC 1-4 /HPF (0-4) Urine Squamous Epithelial Cells Mod /LPF Urine Amorphous Sediment Present /HPF Urine Bacteria Few /HPF (0-FEW) Urine Mucus Mod /LPF Glucose (Fingerstick) 324 mg/dL (70-99) White Blood Count 18.1 x10^3/uL (4.0-11.0) Red Blood Count 4.71 x10^6/uL (3.50-5.40) Hemoglobin 14.3 g/dL (12.0-15.5) Hematocrit 41.4 % (36.0-47.0) Mean Corpuscular Volume 88 fL (79-100) Mean Corpuscular Hemoglobin 30 pg (25-35) Mean Corpuscular Hemoglobin Concent 35 g/dL (31-37) Red Cell Distribution Width 13.1 % (11.5-14.5) Platelet Count 295 x10^3/uL (140-400) Neutrophils (%) (Auto) 93 % (31-73) Lymphocytes (%) (Auto) 5 % (24-48) Monocytes (%) (Auto) 2 % (0-9) Eosinophils (%) (Auto) 0 % (0-3) Basophils (%) (Auto) 0 % (0-3) Neutrophils # (Auto) 16.8 x10^3/uL (1.8-7.7) Lymphocytes # (Auto) 0.9 x10^3/uL (1.0-4.8) Monocytes # (Auto) 0.4 x10^3/uL (0.0-1.1) Eosinophils # (Auto) 0.0 x10^3/uL (0.0-0.7) Basophils # (Auto) 0.0 x10^3/uL (0.0-0.2) Segmented Neutrophils % 87 % (35-66) Band Neutrophils % 4 % (0-9) Lymphocytes % 6 % (24-48) Monocytes % 1 % (0-10) Basophils % 2 % (0-3) Platelet Estimate Adequate (ADEQUATE) Sodium Level 137 mmol/L (136-145) Potassium Level 4.1 mmol/L (3.5-5.1) Chloride Level 100 mmol/L (98-107) Carbon Dioxide Level 16 mmol/L (21-32) Anion Gap 21 (6-14) Blood Urea Nitrogen 10 mg/dL (7-20) Creatinine 1.0 mg/dL (0.6-1.0) Estimated GFR (Cockcroft-Gault) 68.1 BUN/Creatinine Ratio 10 (6-20) Glucose Level 337 mg/dL (70-99) Calcium Level 9.9 mg/dL (8.5-10.1) Phosphorus Level 2.9 mg/dL (2.6-4.7) Magnesium Level 1.9 mg/dL (1.8-2.4) Total Bilirubin 0.4 mg/dL (0.2-1.0) Aspartate Amino Transf (AST/SGOT) 13 U/L (15-37) Alanine Aminotransferase (ALT/SGPT) 17 U/L (14-59) Alkaline Phosphatase 97 U/L (46-116) Total Protein 8.0 g/dL (6.4-8.2) Albumin 4.6 g/dL (3.4-5.0) Albumin/Globulin Ratio 1.4 (1.0-1.7) Acetone Level Neg (NEG) Bedside Urine HCG, Qualitative Hcg negative (Negative) Test 04/09/20 12:43 04/09/20 15:15 04/09/20 16:01 04/09/20 17:01 Prothrombin Time 13.5 SEC (11.7-14.0) Prothromb Time International Ratio 1.1 (0.8-1.1) Lipase 62 U/L (73-393) Urine Opiates Screen Neg (NEG) Urine Methadone Screen Neg (NEG) Urine Barbiturates Neg (NEG) Urine Phencyclidine Screen Neg (NEG) Urine Amphetamine/Methamphetamine Neg (NEG) Urine Benzodiazepines Screen Neg (NEG) Urine Cocaine Screen Neg (NEG) Urine Cannabinoids Screen Pos (NEG) Ethyl Alcohol Level < 10 mg/dL (0-10) Urine Ethyl Alcohol Neg (NEG) O2 Saturation 97 % (92-99) Arterial Blood pH 7.45 (7.35-7.45) Arterial Blood pCO2 at Patient Temp 27 mmHg (35-46) Arterial Blood pO2 at Patient Temp 84 mmHg (85-108) Arterial Blood HCO3 18 mmol/L (21-28) Arterial Blood Base Excess -4 mmol/L (-3-3) Oxyhemoglobin 95.9 % Methemoglobin 0.6 % (0.0-1.9) Carbon Monoxide, Quantitative 0.1 % (0.0-1.9) FiO2 21 Glucose (Fingerstick) 251 mg/dL (70-99) 241 mg/dL (70-99) Test 04/09/20 17:38 04/09/20 18:57 04/09/20 20:10 04/09/20 21:12 Sodium Level 137 mmol/L (136-145) Potassium Level 3.6 mmol/L (3.5-5.1) Chloride Level 103 mmol/L (98-107) Carbon Dioxide Level 23 mmol/L (21-32) Anion Gap 11 (6-14) Blood Urea Nitrogen 8 mg/dL (7-20) Creatinine 0.8 mg/dL (0.6-1.0) Estimated GFR (Cockcroft-Gault) 88.1 Glucose Level 253 mg/dL (70-99) Calcium Level 8.5 mg/dL (8.5-10.1) Magnesium Level 1.8 mg/dL (1.8-2.4) Glucose (Fingerstick) 238 mg/dL (70-99) 249 mg/dL (70-99) 215 mg/dL (70-99) Test 04/09/20 21:35 04/10/20 00:56 04/10/20 04:00 04/10/20 05:20 Sodium Level 140 mmol/L (136-145) 136 mmol/L (136-145) Potassium Level 2.8 mmol/L (3.5-5.1) 4.4 mmol/L (3.5-5.1) Chloride Level 105 mmol/L (98-107) 102 mmol/L (98-107) Carbon Dioxide Level 26 mmol/L (21-32) 22 mmol/L (21-32) Anion Gap 9 (6-14) 12 (6-14) Blood Urea Nitrogen 10 mg/dL (7-20) 8 mg/dL (7-20) Creatinine 0.8 mg/dL (0.6-1.0) 0.7 mg/dL (0.6-1.0) Estimated GFR (Cockcroft-Gault) 88.1 102.8 Glucose Level 197 mg/dL (70-99) 213 mg/dL (70-99) Calcium Level 9.2 mg/dL (8.5-10.1) 9.1 mg/dL (8.5-10.1) Glucose (Fingerstick) 142 mg/dL (70-99) 214 mg/dL (70-99) White Blood Count 16.8 x10^3/uL (4.0-11.0) Red Blood Count 4.45 x10^6/uL (3.50-5.40) Hemoglobin 13.4 g/dL (12.0-15.5) Hematocrit 39.4 % (36.0-47.0) Mean Corpuscular Volume 89 fL (79-100) Mean Corpuscular Hemoglobin 30 pg (25-35) Mean Corpuscular Hemoglobin Concent 34 g/dL (31-37) Red Cell Distribution Width 13.4 % (11.5-14.5) Platelet Count 274 x10^3/uL (140-400) Neutrophils (%) (Auto) 80 % (31-73) Lymphocytes (%) (Auto) 12 % (24-48) Monocytes (%) (Auto) 7 % (0-9) Eosinophils (%) (Auto) 0 % (0-3) Basophils (%) (Auto) 0 % (0-3) Neutrophils # (Auto) 13.5 x10^3/uL (1.8-7.7) Lymphocytes # (Auto) 2.0 x10^3/uL (1.0-4.8) Monocytes # (Auto) 1.2 x10^3/uL (0.0-1.1) Eosinophils # (Auto) 0.0 x10^3/uL (0.0-0.7) Basophils # (Auto) 0.0 x10^3/uL (0.0-0.2) Test 04/10/20 09:09 Glucose (Fingerstick) 197 mg/dL (70-99) Medications Current Medications Sodium Chloride 1,000 ml @ 1,000 mls/hr 1X ONCE IV Last administered on 04/09/20at 12:48; Start 04/09/20 at 12:45; Stop 04/09/20 at 13:44; Status DC Sodium Chloride 1,000 ml @ 1,000 mls/hr 1X ONCE IV Last administered on 04/09at 12:49; Start 04/09/20 at 12:45; Stop 04/09/20 at 22:36; Status DC Ondansetron HCl (Zofran) 4 mg 1X ONCE IVP Last administered on 04/09/20at 12:49; Start 04/09/20 at 12:45; Stop 04/09/20 at 12:46; Status DC Prochlorperazine Edisylate (Compazine) 10 mg 1X ONCE IV Last administered on 04/09/20at 13:53; Start 04/09/20 at 14:00; Stop 04/09/20 at 14:01; Status DC Sodium Chloride 1,000 ml @ 150 mls/hr 1X ONCE IV Last administered on 04/09/20at 14:07; Start 04/09/20 at 14:00; Stop 04/09/20 at 18:58; Status DC Insulin Human Regular 100 unit/ Sodium Chloride 101 ml @ 0 mls/hr CONT PRN IV SEE I/O RECORD; Start 04/09/20 at 14:00; Stop 04/09/20 at 19:00; Status DC Ondansetron HCl (Zofran) 4 mg PRN Q8HRS PRN IV NAUSEA/VOMITING Last administer ed on 04/09/20at 16:10; Start 04/09/20 at 15:15; Stop 04/09/20 at 17:06; Status DC Sennosides (Senna) 17.2 mg PRN BID PRN PO CONSTIPATION; Start 04/09/20 at 17:00 Docusate Sodium (Colace) 100 mg PRN DAILY PRN PO HARD STOOLS; Start 04/09/20 at 17:00 Ondansetron HCl (Zofran) 4 mg PRN Q6HRS PRN IVP NAUSEA/VOMITING Last administered on 04/10/20at 03:46; Start 04/09/20 at 17:00 Dextrose (Dextrose 50%-Water Syringe) 12.5 gm PRN Q15MIN PRN IV SEE COMMENTS; Start 04/09/20 at 17:00; Stop 04/09/20 at 19:06; Status DC Acetaminophen (Tylenol) 650 mg PRN Q4HRS PRN PO TEMP OVER 100.4F OR MILD PAIN; Start 04/09/20 at 17:00 Enoxaparin Sodium (Lovenox 40mg Syringe) 40 mg Q24H SQ Last administered on 04/09/20at 17:16; Start 04/09/20 at 17:00 Potassium Chloride/Dextrose/ Sod Cl 1,000 ml @ 100 mls/hr Q10H ONCE IV Last administered on 04/09/20at 19:06; Start 04/09/20 at 19:30; Stop 04/09/20 at 22:36; Status DC Insulin Human Lispro (HumaLOG) 0-7 UNITS PRN Q1HR PRN SQ PER SLIDING SCALE Last administered on 04/10/20at 05:26; Start 04/09/20 at 20:00 Dextrose (Dextrose 50%-Water Syringe) 12.5 gm PRN Q15MIN PRN IV SEE COMMENTS; Start 04/09/20 at 19:00 Potassium Chloride 40 meq/ Sodium Chloride 1,020 ml @ 200 mls/hr Q5H6M IV ; Start 04/09/20 at 23:00; Status Cancel Potassium Chloride/Water 100 ml @ 100 mls/hr Q1H IV Last administered on 04/10/20at 05:56; Start 04/10/20 at 00:00; Stop 04/10/20 at 07:59; Status DC Lamotrigine (LaMICtal) 150 mg BID PO Last administered on 04/10/20at 08:20; Start 04/09/20 at 23:00 Potassium Chloride 40 meq/ Sodium Chloride 1,020 ml @ 200 mls/hr Q5H6M IV Last administered on 04/10/20at 03:46; Start 04/09/20 at 23:00; Stop 04/10/20 at 09:11; Status DC Metoclopramide HCl (Reglan Vial) 10 mg PRN Q6HRS PRN IVP NAUSEA/VOMITING 2ND CHOICE; Start 04/10/20 at 04:00 Prochlorperazine Edisylate (Compazine) 10 mg PRN Q6HRS PRN IM NAUSEA/VOMITING 3RD CHOICE; Start 04/10/20 at 04:00; Stop 04/10/20 at 04:04; Status DC Prochlorperazine Edisylate (Compazine) 10 mg PRN Q6HRS PRN IV NAUSEA/VOMITING 3RD CHOICE Last administered on 04/10/20at 04:06; Start 04/10/20 at 04:15 Active Scripts Active Reported Norethindrone 0.35 Mg Tablet 1 Tab PO DAILY Mynephrocaps Softgel (Folic Acid/Vitamin B Comp W-C) 1 Mg Capsule 4 Mg PO DAILY Lamictal Xr (Lamotrigine) 300 Mg Tab.er.24 300 Mg PO DAILY Vitals/I & O Vital Sign - Last 24 Hours 04/09/20 04/09/20 04/09/20 04/09/20 12:34 13:01 13:45 14:05 Temp 98.4 98.4 Pulse 90 68 96 92 Resp 24 20 20 20 B/P (MAP) 134/80 (98) 118/64 (82) 153/77 (102) 136/75 (95) Pulse Ox 100 96 100 100 O2 Delivery Room Air 04/09/20 04/09/20 04/09/20 04/09/20 14:35 15:05 15:23 16:00 Pulse 90 100 82 102 Resp 20 16 20 16 B/P (MAP) 124/77 (93) 121/62 (81) 123/66 (85) 143/78 (99) Pulse Ox 100 100 100 100 O2 Delivery Room Air Room Air 04/09/20 04/09/20 04/09/20 04/09/20 16:55 18:05 19:27 19:48 Temp 99.7 100.0 99.7 100.0 Pulse 90 100 Resp 20 16 B/P (MAP) 140/84 (102) 140/76 (97) Pulse Ox 95 100 O2 Delivery Room Air Room Air Room Air Room Air 04/09/20 04/10/20 04/10/20 22:55 03:02 06:24 Temp 97.9 99.9 99.5 97.9 99.9 99.5 Pulse 59 76 93 Resp 16 16 16 B/P (MAP) 140/96 (111) 132/93 (106) 145/86 (105) Pulse Ox 98 98 O2 Delivery Room Air Room Air Room Air Intake and Output 04/09/20 04/09/20 04/10/20 15:00 23:00 07:00 Intake Total 2000 ml 400 ml 3100 ml Output Total 450 ml 1050 ml Balance 2000 ml -50 ml 2050 ml Justicifation of Admission Dx: Justifications for Admission: Justification of Admission Dx: Yes MAICO MUÑOZ MD Apr 10, 2020 10:08
--- NOTE | 2020-04-10 10:58 | PDOC3 ---
Discharge Summary Date of Admission: Apr 09, 2020 Date of Discharge: Apr 10, 2020 Follow-Up: 3-5 days Admitting Diagnosis comment: discharge dx Assessment/Plan DKA Cannabinoid hyperemesis syndrome Cannabinoid abuse Anion gap metabolic acidosis Uncontrolled diabetes with hyperglycemia Reactive leukocytosis uncontrolled diabetes plan ABG on admission pending urine and blood ketones plasma osmolarity Continue serial inspections and examination for sources that caused ketoacidotic state Continue IV insulin starting at 0.1 units per kg When glucose is less than 200, AG is closed, patient able to eat, and HCO3 greater than 15, then transition with subcu insulin 0.1 units/kg every 2 hours for at least 2 hours Continue IV fluids of 1 to 1.5 L/h until a total of 5 L is replenished Switch to one half NS at half the rate if NA is normal or elevated As needed D50 W or add D5 to IV fluids if Accu-Cheks are less than 200 Maintain potassium between 3.5-5, if potassium falls below 3.3, stop insulin and add 40 mEq/h of potassium If arterial pH is below 6.9, give 100 mEq of sodium bicarb +20 mEq of potassium Every 2-4 hours BMP and a be checked until stable Every 3 hour Accu-Cheks while on insulin Encourage hot showers Lovenox for DVT prophylaxis ADA diet Full code Discussed with RN and SW Disposition inpatient care Surrogate decision maker is Sai Barbosa a1c add lantus 10 units sq hs diabetic teaching THC AVOIDANCE D/C PLANNING 32 MIN Justifications for Admission Justifications for Admission Other Justification History of Present Illness History of Present Illness Chief Complaint: Chief Complain: Intractable nausea vomiting History of Present Illness: HPI: 25 year old female who presents adka drank a lot of yanira and was drunk and also smoking marijuana. she awoke in she was unable to stop vomiting. She denies any abdominal pain, chest pain, shortness of air, diarrhea, fever, cough, syncope, focal weakness, numbness or tingling, vision changes. She states that she feels like the room is spinning. Patient is very anxious. Patient has a history of gestational diabetes after she had the baby 6 months ago she is post to start metformin and never did. Patient also has a history of asthma, migraines, seizures. She states she takes all medications except for the metformin daily as she is supposed to. She denies any seizure activity. Past Medical/Surgical History: PMH/PSH: Past Medical History: Asthma, Diabetes-Type II, Migraines, Seizure Past Surgical History: No Surgical History Allergies: Allergies: Coded Allergies: No Known Drug Allergies (Unverified , 01/28/17) Family History: Family History: Reviewed and none reported Social History: Social History: Smoking Status: Never Smoker Alcohol Use: None Drug Use: Marijuana Vitals Vitals Vital Signs Date Time Temp Pulse Resp B/P (MAP) Pulse Ox O2 Delivery O2 Flow Rate FiO2 04/10/20 06:24 99.5 93 16 145/86 (105) 98 Room Air 99.5 Physical Exam Physical Exam Physcial Exam: GEN: No apparent distress. Alert and oriented HEENT: Normal cephalic, atraumatic, external auditory canals are patent EYES: Extraocular muscles are intact, pupil are equally round and reactive to light and accommodation MUSCULOSKELETAL: Well developed , well nourished, good range of motion ENDOCRINE: No thyromegaly was palpated LYMPHATICS: No cervical chain or axillary nodes were noted HEMATOPOIETIC: No bruising NECK: Supple, no JVD, no thyromegaly was noted LUNGS: Clear to auscultation in all lung viera without rhonchi or wheezing HEART: RRR, S!, S2 present. Peripheral pulses intact, no obvious murmurs noted ABDOMEN: Soft, nontender. Positive bowel sounds, no organomegaly, normal bowel sounds EXTREMITIES: Without clubbing, cyanosis, or edema. Pedal pulses intact. Negative Homans sign NEUROLOGIC: Normal speech and tone. A&O x 3, moves all extremities, no obvious focal deficits PSYCHIATRIC: Normal affect, normal mood. Stable SKIN: No ulcerations or rashes, good skin turgor, no jaundice VASCULAR: Good capillary refill, neurovascular bundle appears to be intact General: Alert, Oriented X3, Cooperative, No acute distress Heart: Regular rate, Normal S1, Normal S2 Lungs: Clear Abdomen: Normal bowel sounds, Soft, No tenderness Extremities: No cyanosis Skin: No significant lesion Labs LABS EXAM: Chest, 2 views. HISTORY: Vomiting. Dizziness. COMPARISON: 12/28/2019 FINDINGS: 2 views of the chest are obtained. There is no infiltrate, pleural effusion or pneumothorax. The heart is normal in size. IMPRESSION: No acute pulmonary finding. Electronically signed by: Veronica Andrade MD (04/09/2020 1:46 PM) [id number] FINAL DIAGNOSIS Problems Medical Problems: (1) DKA (diabetic ketoacidoses) Status: Acute Brief Hospital Course Ms. Mar is a 25 old [sex] who presented with [ DKA, VOMITING, ETOH INGESTION ] CONDITION AT DISCHARGE: Improved Discharge Medications Current Medications Sodium Chloride 1,000 ml @ 1,000 mls/hr 1X ONCE IV Last administered on 04/09/20at 12:48; Start 04/09/20 at 12:45; Stop 04/09/20 at 13:44; Status DC Sodium Chloride 1,000 ml @ 1,000 mls/hr 1X ONCE IV Last administered on 04/09/20at 12:49; Start 04/09/20 at 12:45; Stop 04/09/20 at 22:36; Status DC Ondansetron HCl (Zofran) 4 mg 1X ONCE IVP Last administered on 04/09/20at 12:49; Start 04/09/20 at 12:45; Stop 04/09/20 at 12:46; Status DC Prochlorperazine Edisylate (Compazine) 10 mg 1X ONCE IV Last administered on 04/09/20at 13:53; Start 04/09/20 at 14:00; Stop 04/09/20 at 14:01; Status DC Sodium Chloride 1,000 ml @ 150 mls/hr 1X ONCE IV Last administered on 04/09/20at 14:07; Start 04/09/20 at 14:00; Stop 04/09/20 at 18:58; Status DC Insulin Human Regular 100 unit/ Sodium Chloride 101 ml @ 0 mls/hr CONT PRN IV SEE I/O RECORD; Start 04/09/20 at 14:00; Stop 04/09/20 at 19:00; Status DC Ondansetron HCl (Zofran) 4 mg PRN Q8HRS PRN IV NAUSEA/VOMITING Last administered on 04/09/20at 16:10; Start 04/09/20 at 15:15; Stop 04/09/20 at 17:06; Status DC Sennosides (Senna) 17.2 mg PRN BID PRN PO CONSTIPATION; Start 04/09/20 at 17:00 Docusate Sodium (Colace) 100 mg PRN DAILY PRN PO HARD STOOLS; Start 04/09/20 at 17:00 Ondansetron HCl (Zofran) 4 mg PRN Q6HRS PRN IVP NAUSEA/VOMITING Last administered on 04/10/20at 03:46; Start 04/09/20 at 17:00 Dextrose (Dextrose 50%-Water Syringe) 12.5 gm PRN Q15MIN PRN IV SEE COMMENTS; Start 04/09/20 at 17:00; Stop 04/09/20 at 19:06; Status DC Acetaminophen (Tylenol) 650 mg PRN Q4HRS PRN PO TEMP OVER 100.4F OR MILD PAIN; Start 04/09/20 at 17:00 Enoxaparin Sodium (Lovenox 40mg Syringe) 40 mg Q24H SQ Last administered on 04/09/20at 17:16; Start 04/09/20 at 17:00 Potassium Chloride/Dextrose/ Sod Cl 1,000 ml @ 100 mls/hr Q10H ONCE IV Last administered on 04/09/20at 19:06; Start 04/09/20 at 19:30; Stop 04/09/20 at 22:36; Status DC Insulin Human Lispro (HumaLOG) 0-7 UNITS PRN Q1HR PRN SQ PER SLIDING SCALE Last administered on 04/10/20at 05:26; Start 04/09/20 at 20:00 Dextrose (Dextrose 50%-Water Syringe) 12.5 gm PRN Q15MIN PRN IV SEE COMMENTS; Start 04/09/20 at 19:00 Potassium Chloride 40 meq/ Sodium Chloride 1,020 ml @ 200 mls/hr Q5H6M IV ; Start 04/09/20 at 23:00; Status Cancel Potassium Chloride/Water 100 ml @ 100 mls/hr Q1H IV Last administered on 04/10/20at 05:56; Start 04/10/20 at 00:00; Stop 04/10/20 at 07:59; Status DC Lamotrigine (LaMICtal) 150 mg BID PO Last administered on 04/10/20at 08:20; Start 04/09/20 at 23:00 Potassium Chloride 40 meq/ Sodium Chloride 1,020 ml @ 200 mls/hr Q5H6M IV Last administered on 04/10/20at 03:46; Start 04/09/20 at 23:00; Stop 04/10/20 at 09:11; Status DC Metoclopramide HCl (Reglan Vial) 10 mg PRN Q6HRS PRN IVP NAUSEA/VOMITING 2ND CHOICE; Start 04/10/20 at 04:00 Prochlorperazine Edisylate (Compazine) 10 mg PRN Q6HRS PRN IM NAUSEA/VOMITING 3RD CHOICE; Start 04/10/20 at 04:00; Stop 04/10/20 at 04:04; Status DC Prochlorperazine Edisylate (Compazine) 10 mg PRN Q6HRS PRN IV NAUSEA/VOMITING 3RD CHOICE Last administered on 04/10/20at 04:06; Start 04/10/20 at 04:15 Insulin Glargine (Lantus Syringe) 10 unit QHS SQ ; Start 04/10/20 at 21:00 Active Scripts Active Reported Norethindrone 0.35 Mg Tablet 1 Tab PO DAILY Mynephrocaps Softgel (Folic Acid/Vitamin B Comp W-C) 1 Mg Capsule 4 Mg PO DAILY Lamictal Xr (Lamotrigine) 300 Mg Tab.er.24 300 Mg PO DAILY Vital Signs Vital Signs Date Time Temp Pulse Resp B/P (MAP) Pulse Ox O2 Delivery O2 Flow Rate FiO2 04/10/20 08:00 Room Air 04/10/20 06:24 99.5 93 16 145/86 (105) 98 99.5 Labs Laboratory Tests Test 04/09/20 12:25 04/09/20 12:32 04/09/20 12:34 04/09/20 12:41 Urine Collection Type Unknown Urine Color Yellow Urine Clarity Clear Urine pH 5.5 (<5.0-8.0) Urine Specific [place] >=1.030 (1.000-1.030) Urine Protein 30 mg/dL (NEG-TRACE) Urine Glucose (UA) >=1000 mg/dL (NEG) Urine Ketones (Stick) >=80 mg/dL (NEG) Urine Blood Moderate (NEG) Urine Nitrite Negative (NEG) Urine Bilirubin Negative (NEG) Urine Urobilinogen Dipstick 0.2 mg/dL (0.2 mg/dL) Urine Leukocyte Esterase Negative (NEG) Urine RBC 3-5 /HPF (0-2) Urine WBC 1-4 /HPF (0-4) Urine Squamous Epithelial Cells Mod /LPF Urine Amorphous Sediment Present /HPF Urine Bacteria Few /HPF (0-FEW) Urine Mucus Mod /LPF Glucose (Fingerstick) 324 mg/dL (70-99) White Blood Count 18.1 x10^3/uL (4.0-11.0) Red Blood Count 4.71 x10^6/uL (3.50-5.40) Hemoglobin 14.3 g/dL (12.0-15.5) Hematocrit 41.4 % (36.0-47.0) Mean Corpuscular Volume 88 fL (79-100) Mean Corpuscular Hemoglobin 30 pg (25-35) Mean Corpuscular Hemoglobin Concent 35 g/dL (31-37) Red Cell Distribution Width 13.1 % (11.5-14.5) Platelet Count 295 x10^3/uL (140-400) Neutrophils (%) (Auto) 93 % (31-73) Lymphocytes (%) (Auto) 5 % (24-48) Monocytes (%) (Auto) 2 % (0-9) Eosinophils (%) (Auto) 0 % (0-3) Basophils (%) (Auto) 0 % (0-3) Neutrophils # (Auto) 16.8 x10^3/uL (1.8-7.7) Lymphocytes # (Auto) 0.9 x10^3/uL (1.0-4.8) Monocytes # (Auto) 0.4 x10^3/uL (0.0-1.1) Eosinophils # (Auto) 0.0 x10^3/uL (0.0-0.7) Basophils # (Auto) 0.0 x10^3/uL (0.0-0.2) Segmented Neutrophils % 87 % (35-66) Band Neutrophils % 4 % (0-9) Lymphocytes % 6 % (24-48) Monocytes % 1 % (0-10) Basophils % 2 % (0-3) Platelet Estimate Adequate (ADEQUATE) Sodium Level 137 mmol/L (136-145) Potassium Level 4.1 mmol/L (3.5-5.1) Chloride Level 100 mmol/L (98-107) Carbon Dioxide Level 16 mmol/L (21-32) Anion Gap 21 (6-14) Blood Urea Nitrogen 10 mg/dL (7-20) Creatinine 1.0 mg/dL (0.6-1.0) Estimated GFR (Cockcroft-Gault) 68.1 BUN/Creatinine Ratio 10 (6-20) Glucose Level 337 mg/dL (70-99) Calcium Level 9.9 mg/dL (8.5-10.1) Phosphorus Level 2.9 mg/dL (2.6-4.7) Magnesium Level 1.9 mg/dL (1.8-2.4) Total Bilirubin 0.4 mg/dL (0.2-1.0) Aspartate Amino Transf (AST/SGOT) 13 U/L (15-37) Alanine Aminotransferase (ALT/SGPT) 17 U/L (14-59) Alkaline Phosphatase 97 U/L (46-116) Total Protein 8.0 g/dL (6.4-8.2) Albumin 4.6 g/dL (3.4-5.0) Albumin/Globulin Ratio 1.4 (1.0-1.7) Acetone Level Neg (NEG) Bedside Urine HCG, Qualitative Hcg negative (Negative) Test 04/09/20 12:43 04/09/20 15:15 04/09/20 16:01 04/09/20 17:01 Prothrombin Time 13.5 SEC (11.7-14.0) Prothromb Time International Ratio 1.1 (0.8-1.1) Lipase 62 U/L (73-393) Urine Opiates Screen Neg (NEG) Urine Methadone Screen Neg (NEG) Urine Barbiturates Neg (NEG) Urine Phencyclidine Screen Neg (NEG) Urine Amphetamine/Methamphetamine Neg (NEG) Urine Benzodiazepines Screen Neg (NEG) Urine Cocaine Screen Neg (NEG) Urine Cannabinoids Screen Pos (NEG) Ethyl Alcohol Level < 10 mg/dL (0-10) Urine Ethyl Alcohol Neg (NEG) O2 Saturation 97 % (92-99) Arterial Blood pH 7.45 (7.35-7.45) Arterial Blood pCO2 at Patient Temp 27 mmHg (35-46) Arterial Blood pO2 at Patient Temp 84 mmHg (85-108) Arterial Blood HCO3 18 mmol/L (21-28) Arterial Blood Base Excess -4 mmol/L (-3-3) Oxyhemoglobin 95.9 % Methemoglobin 0.6 % (0.0-1.9) Carbon Monoxide, Quantitative 0.1 % (0.0-1.9) FiO2 21 Glucose (Fingerstick) 251 mg/dL (70-99) 241 mg/dL (70-99) Test 04/09/20 17:38 04/09/20 18:57 04/09/20 20:10 04/09/20 21:12 Sodium Level 137 mmol/L (136-145) Potassium Level 3.6 mmol/L (3.5-5.1) Chloride Level 103 mmol/L (98-107) Carbon Dioxide Level 23 mmol/L (21-32) Anion Gap 11 (6-14) Blood Urea Nitrogen 8 mg/dL (7-20) Creatinine 0.8 mg/dL (0.6-1.0) Estimated GFR (Cockcroft-Gault) 88.1 Glucose Level 253 mg/dL (70-99) Calcium Level 8.5 mg/dL (8.5-10.1) Magnesium Level 1.8 mg/dL (1.8-2.4) Glucose (Fingerstick) 238 mg/dL (70-99) 249 mg/dL (70-99) 215 mg/dL (70-99) Test 04/09/20 21:35 04/10/20 00:56 04/10/20 04:00 04/10/20 05:20 Sodium Level 140 mmol/L (136-145) 136 mmol/L (136-145) Potassium Level 2.8 mmol/L (3.5-5.1) 4.4 mmol/L (3.5-5.1) Chloride Level 105 mmol/L (98-107) 102 mmol/L (98-107) Carbon Dioxide Level 26 mmol/L (21-32) 22 mmol/L (21-32) Anion Gap 9 (6-14) 12 (6-14) Blood Urea Nitrogen 10 mg/dL (7-20) 8 mg/dL (7-20) Creatinine 0.8 mg/dL (0.6-1.0) 0.7 mg/dL (0.6-1.0) Estimated GFR (Cockcroft-Gault) 88.1 102.8 Glucose Level 197 mg/dL (70-99) 213 mg/dL (70-99) Calcium Level 9.2 mg/dL (8.5-10.1) 9.1 mg/dL (8.5-10.1) Glucose (Fingerstick) 142 mg/dL (70-99) 214 mg/dL (70-99) White Blood Count 16.8 x10^3/uL (4.0-11.0) Red Blood Count 4.45 x10^6/uL (3.50-5.40) Hemoglobin 13.4 g/dL (12.0-15.5) Hematocrit 39.4 % (36.0-47.0) Mean Corpuscular Volume 89 fL (79-100) Mean Corpuscular Hemoglobin 30 pg (25-35) Mean Corpuscular Hemoglobin Concent 34 g/dL (31-37) Red Cell Distribution Width 13.4 % (11.5-14.5) Platelet Count 274 x10^3/uL (140-400) Neutrophils (%) (Auto) 80 % (31-73) Lymphocytes (%) (Auto) 12 % (24-48) Monocytes (%) (Auto) 7 % (0-9) Eosinophils (%) (Auto) 0 % (0-3) Basophils (%) (Auto) 0 % (0-3) Neutrophils # (Auto) 13.5 x10^3/uL (1.8-7.7) Lymphocytes # (Auto) 2.0 x10^3/uL (1.0-4.8) Monocytes # (Auto) 1.2 x10^3/uL (0.0-1.1) Eosinophils # (Auto) 0.0 x10^3/uL (0.0-0.7) Basophils # (Auto) 0.0 x10^3/uL (0.0-0.2) Test 04/10/20 09:09 Glucose (Fingerstick) 197 mg/dL (70-99) Laboratory Tests Test 04/09/20 12:25 04/09/20 12:32 04/09/20 12:34 04/09/20 12:41 Urine Collection Type Unknown Urine Color Yellow Urine Clarity Clear Urine pH 5.5 (<5.0-8.0) Urine Specific [place] >=1.030 (1.000-1.030) Urine Protein 30 mg/dL (NEG-TRACE) Urine Glucose (UA) >=1000 mg/dL (NEG) Urine Ketones (Stick) >=80 mg/dL (NEG) Urine Blood Moderate (NEG) Urine Nitrite Negative (NEG) Urine Bilirubin Negative (NEG) Urine Urobilinogen Dipstick 0.2 mg/dL (0.2 mg/dL) Urine Leukocyte Esterase Negative (NEG) Urine RBC 3-5 /HPF (0-2) Urine WBC 1-4 /HPF (0-4) Urine Squamous Epithelial Cells Mod /LPF Urine Amorphous Sediment Present /HPF Urine Bacteria Few /HPF (0-FEW) Urine Mucus Mod /LPF Glucose (Fingerstick) 324 mg/dL (70-99) White Blood Count 18.1 x10^3/uL (4.0-11.0) Red Blood Count 4.71 x10^6/uL (3.50-5.40) Hemoglobin 14.3 g/dL (12.0-15.5) Hematocrit 41.4 % (36.0-47.0) Mean Corpuscular Volume 88 fL (79-100) Mean Corpuscular Hemoglobin 30 pg (25-35) Mean Corpuscular Hemoglobin Concent 35 g/dL (31-37) Red Cell Distribution Width 13.1 % (11.5-14.5) Platelet Count 295 x10^3/uL (140-400) Neutrophils (%) (Auto) 93 % (31-73) Lymphocytes (%) (Auto) 5 % (24-48) Monocytes (%) (Auto) 2 % (0-9) Eosinophils (%) (Auto) 0 % (0-3) Basophils (%) (Auto) 0 % (0-3) Neutrophils # (Auto) 16.8 x10^3/uL (1.8-7.7) Lymphocytes # (Auto) 0.9 x10^3/uL (1.0-4.8) Monocytes # (Auto) 0.4 x10^3/uL (0.0-1.1) Eosinophils # (Auto) 0.0 x10^3/uL (0.0-0.7) Basophils # (Auto) 0.0 x10^3/uL (0.0-0.2) Segmented Neutrophils % 87 % (35-66) Band Neutrophils % 4 % (0-9) Lymphocytes % 6 % (24-48) Monocytes % 1 % (0-10) Basophils % 2 % (0-3) Platelet Estimate Adequate (ADEQUATE) Sodium Level 137 mmol/L (136-145) Potassium Level 4.1 mmol/L (3.5-5.1) Chloride Level 100 mmol/L (98-107) Carbon Dioxide Level 16 mmol/L (21-32) Anion Gap 21 (6-14) Blood Urea Nitrogen 10 mg/dL (7-20) Creatinine 1.0 mg/dL (0.6-1.0) Estimated GFR (Cockcroft-Gault) 68.1 BUN/Creatinine Ratio 10 (6-20) Glucose Level 337 mg/dL (70-99) Calcium Level 9.9 mg/dL (8.5-10.1) Phosphorus Level 2.9 mg/dL (2.6-4.7) Magnesium Level 1.9 mg/dL (1.8-2.4) Total Bilirubin 0.4 mg/dL (0.2-1.0) Aspartate Amino Transf (AST/SGOT) 13 U/L (15-37) Alanine Aminotransferase (ALT/SGPT) 17 U/L (14-59) Alkaline Phosphatase 97 U/L (46-116) Total Protein 8.0 g/dL (6.4-8.2) Albumin 4.6 g/dL (3.4-5.0) Albumin/Globulin Ratio 1.4 (1.0-1.7) Acetone Level Neg (NEG) Bedside Urine HCG, Qualitative Hcg negative (Negative) Test 04/09/20 12:43 04/09/20 15:15 04/09/20 16:01 04/09/20 17:01 Prothrombin Time 13.5 SEC (11.7-14.0) Prothromb Time International Ratio 1.1 (0.8-1.1) Lipase 62 U/L (73-393) Urine Opiates Screen Neg (NEG) Urine Methadone Screen Neg (NEG) Urine Barbiturates Neg (NEG) Urine Phencyclidine Screen Neg (NEG) Urine Amphetamine/Methamphetamine Neg (NEG) Urine Benzodiazepines Screen Neg (NEG) Urine Cocaine Screen Neg (NEG) Urine Cannabinoids Screen Pos (NEG) Ethyl Alcohol Level < 10 mg/dL (0-10) Urine Ethyl Alcohol Neg (NEG) O2 Saturation 97 % (92-99) Arterial Blood pH 7.45 (7.35-7.45) Arterial Blood pCO2 at Patient Temp 27 mmHg (35-46) Arterial Blood pO2 at Patient Temp 84 mmHg (85-108) Arterial Blood HCO3 18 mmol/L (21-28) Arterial Blood Base Excess -4 mmol/L (-3-3) Oxyhemoglobin 95.9 % Methemoglobin 0.6 % (0.0-1.9) Carbon Monoxide, Quantitative 0.1 % (0.0-1.9) FiO2 21 Glucose (Fingerstick) 251 mg/dL (70-99) 241 mg/dL (70-99) Test 04/09/20 17:38 04/09/20 18:57 04/09/20 20:10 04/09/20 21:12 Sodium Level 137 mmol/L (136-145) Potassium Level 3.6 mmol/L (3.5-5.1) Chloride Level 103 mmol/L (98-107) Carbon Dioxide Level 23 mmol/L (21-32) Anion Gap 11 (6-14) Blood Urea Nitrogen 8 mg/dL (7-20) Creatinine 0.8 mg/dL (0.6-1.0) Estimated GFR (Cockcroft-Gault) 88.1 Glucose Level 253 mg/dL (70-99) Calcium Level 8.5 mg/dL (8.5-10.1) Magnesium Level 1.8 mg/dL (1.8-2.4) Glucose (Fingerstick) 238 mg/dL (70-99) 249 mg/dL (70-99) 215 mg/dL (70-99) Test 04/09/20 21:35 04/10/20 00:56 04/10/20 04:00 04/10/20 05:20 Sodium Level 140 mmol/L (136-145) 136 mmol/L (136-145) Potassium Level 2.8 mmol/L (3.5-5.1) 4.4 mmol/L (3.5-5.1) Chloride Level 105 mmol/L (98-107) 102 mmol/L (98-107) Carbon Dioxide Level 26 mmol/L (21-32) 22 mmol/L (21-32) Anion Gap 9 (6-14) 12 (6-14) Blood Urea Nitrogen 10 mg/dL (7-20) 8 mg/dL (7-20) Creatinine 0.8 mg/dL (0.6-1.0) 0.7 mg/dL (0.6-1.0) Estimated GFR (Cockcroft-Gault) 88.1 102.8 Glucose Level 197 mg/dL (70-99) 213 mg/dL (70-99) Calcium Level 9.2 mg/dL (8.5-10.1) 9.1 mg/dL (8.5-10.1) Glucose (Fingerstick) 142 mg/dL (70-99) 214 mg/dL (70-99) White Blood Count 16.8 x10^3/uL (4.0-11.0) Red Blood Count 4.45 x10^6/uL (3.50-5.40) Hemoglobin 13.4 g/dL (12.0-15.5) Hematocrit 39.4 % (36.0-47.0) Mean Corpuscular Volume 89 fL (79-100) Mean Corpuscular Hemoglobin 30 pg (25-35) Mean Corpuscular Hemoglobin Concent 34 g/dL (31-37) Red Cell Distribution Width 13.4 % (11.5-14.5) Platelet Count 274 x10^3/uL (140-400) Neutrophils (%) (Auto) 80 % (31-73) Lymphocytes (%) (Auto) 12 % (24-48) Monocytes (%) (Auto) 7 % (0-9) Eosinophils (%) (Auto) 0 % (0-3) Basophils (%) (Auto) 0 % (0-3) Neutrophils # (Auto) 13.5 x10^3/uL (1.8-7.7) Lymphocytes # (Auto) 2.0 x10^3/uL (1.0-4.8) Monocytes # (Auto) 1.2 x10^3/uL (0.0-1.1) Eosinophils # (Auto) 0.0 x10^3/uL (0.0-0.7) Basophils # (Auto) 0.0 x10^3/uL (0.0-0.2) Test 04/10/20 09:09 Glucose (Fingerstick) 197 mg/dL (70-99) Allergies Allergies Coded Allergies Type Severity Reaction Last Updated Verified No Known Drug Allergies 01/28/17 No Disposition/Orders: D/C to Home Justicifation of Admission Dx: Justifications for Admission: Justification of Admission Dx: Yes MAICO MUÑOZ MD Apr 10, 2020 10:57
[2020-04-10] MEDS ORDERED: INSU100V35 SQ (10:59)
[2020-04-10] MEDS ORDERED: INSU100V8 SQ (10:59)
--- NOTE | 2020-04-10 11:00 | DISCH ---
DISCHARGE INSTRUCTIONS Condition on Discharge Condition on Discharge: Stable Activity After Discharge Activity Instructions for Disc: Activity as tolerated Lifting Instructions after Dis: No heavy lifting Exercise Instruction after Dis: Exercise per therapy Driving Instructions after Dis: Do not drive today, No driving for 6 months Weight Bearing Status after Di: As tolerated Diet after Discharge Diet after Discharge: No Added Sugar, Regular, Diabetic No Calorie Level Diet Texture: Regular Liquid Texture: Thin Liquid Swallowing Supervision: None needed Wound Incision Care Wound/Incision Care: No wound care needed Checks after Discharge Checks after discharge: Check blood press - daily Contacting the DRDoug after DC Call your doctor for: If your condition worsens Follow-Up Follow up with: PCP IN 3-5 DAYS Treatment/Equipment after DC Adaptive Equipment Issued: None MAICO MUÑOZ MD Apr 10, 2020 11:00
[2020-04-10 11:24] VITALS: BP 119/79
--- NOTE | 2020-04-10 12:08 | NUR ---
Pt left against medical advice stating she didn't want to stay just because she is vomiting when we don't know what is causing it. Given teaching on DKA and the warning signs to watch out for along with when to seek emergency care. Pt stated they understood how to give insulin and has a glucometer at home to check her blood sugars. Was advised to go to her primary care provider as soon as possible.
[2020-04-10] MEDS ORDERED: INSULIN GLARGINE SYRINGE. SQ SCH (21:00)
[2020-04-11 03:07] LABS: HEMOGLOBIN A1C 7.7 % (4.8-5.6)
== END 2020-04-10 12:00 | disposition left against medical advice (07) | DRG 638 ==
LOC: ER 12:22 → 2 SOUTH 14:37 → ER 16:25
PROVIDERS: ADMIT Internal Medicine; ATTEND Internal Medicine
DX: E11.10 Type 2 diabetes mellitus with ketoacidosis without coma (principal); E87.2 Acidosis; J45.909 Unspecified asthma, uncomplicated; E11.9 Type 2 diabetes mellitus without complications; G43.909 Migraine, unspecified, not intractable, without status migrainosus; F12.10 Cannabis abuse, uncomplicated; D72.829 Elevated white blood cell count, unspecified; R11.10 Vomiting, unspecified; E11.65 Type 2 diabetes mellitus with hyperglycemia
CPT/HCPCS: 36415; 36600; 71046; 74021; 80048; 80053; 80175; 80307; 81001; 81025; 82010; 82805; 82962; 83036; 83690; 83735; 84100; 85007; 85025; 85610; 93005; 96361; 96374; 96375; 96376; 99285; G0480; J0780; J1650; J1815; J2405; J3480; J3490; J7030; G0378

== ENCOUNTER 2020-06-10 07:52 | Emergency (ER) | payer MEDICAID ==
[~2020-06-10] VITALS: Ht 160 cm; Wt 72.7 kg
[~2020-06-10 07:52] MED LIST changes: +INSU100V35 SQ; +INSU100V8 SQ
[2020-06-10] MEDS ORDERED: IV NORMAL SALINE 1000ML BAG 1,000 ML IV ONE (08:15)
--- NOTE | 2020-06-10 08:24 | PHYS DOC ---
Past Medical History Past Medical History: Asthma, Diabetes-Type I, Migraines, Seizure Additional Past Medical Histor: gestational diabetes Past Surgical History: No Surgical History, Other Additional Past Surgical Histo: tongue Smoking Status: Current Every Day Smoker Alcohol Use: Occasionally Drug Use: Marijuana General Adult EDM: Chief Complaint: ABDOMINAL PAIN,n/v HPI: HPI: 25-year-old female presenting the emergency department today with nausea and vomiting. She has a pain in her upper abdomen that is a burning sensation. She went to an ER in [place] few days ago and was treated with dicyclomine ondansetron and famotidine which has not helped her symptoms very much. Last bowel movement was about 2 days ago. She denies any history of abdominal surgeries. The pain is nonradiating moderate intermittent without alleviating factors. Review of systems negative for chest pain shortness of breath. Positive for vomiting and abdominal pain. Negative for dysuria polyuria hematuria. She denies being . All other review of systems negative. ED course: 25-year-old female presenting with nausea and vomiting abdominal pain. On arrival the patient is afebrile with a normal heart rate. Blood pressure is elevated initially which came down after IV fluids and nausea m edications. Her CT is unremarkable. CBC shows a mild nonspecific leukocytosis. Blood glucose is 270. Otherwise unremarkable chemistry panel. Negative test. Patient had blood in the urine. We will give the patient a oral antibiotic for a possible UTI. We will have the patient follow-up with her doctor tomorrow for repeat abdominal exam. She is to return if she is having any worsening symptoms or any other concerns. Review of Systems: Review of Systems: Heart Score: Risk Factors: Risk Factors: DM, Current or recent (<one month) smoker, HTN, HLP, family history of CAD, obesity. Risk Scores: Score 0 - 3: 2.5% MACE over next 6 weeks - Discharge Home Score 4 - 6: 20.3% MACE over next 6 weeks - Admit for Clinical Observation Score 7 - 10: 72.7% MACE over next 6 weeks - Early Invasive Strategies Current Medications: Current Medications Medications (Trade) Dose Ordered Sig/Jack Start Time Stop Time Status Last Admin Dose Admin Sodium Chloride 1,000 ml @ 1,000 mls/hr Q1H ONCE 06/10/20 08:15 06/10/20 09:14 UNV Allergies: Allergies: Allergies Coded Allergies Type Severity Reaction Last Updated Verified No Known Drug Allergies 01/28/17 No Physical Exam: PE: Constitutional: Well developed, well nourished, no acute distress, non-toxic appearance. HENT: Normocephalic, atraumatic, bilateral external ears normal, oropharynx moist, no oral exudates, nose normal. [] Eyes: PERRLA, EOMI, conjunctiva normal, no discharge. Neck: Normal range of motion, no tenderness, supple, no stridor. [] Cardiovascular:Heart rate regular rhythm, no murmur Lungs & Thorax: Bilateral breath sounds clear to auscultation [] Abdomen: Bowel sounds normal, soft, no tenderness, no masses, no pulsatile masses. Skin: Warm, dry, no erythema, no rash. Back: No tenderness, no CVA tenderness. Extremities: No tenderness, no cyanosis, no clubbing, ROM intact, no edema. [] Neurologic: Alert and oriented X 3, normal motor function, normal sensory function, no focal deficits noted. Psychologic: Affect normal, judgement normal, mood normal. Current Patient Data: Vital Signs: Vital Signs Date Time Temp Pulse Resp B/P (MAP) Pulse Ox O2 Delivery O2 Flow Rate FiO2 06/10/20 08:01 97.8 85 16 178/100 (126) 99 Room Air 97.8 EKG: EKG: [] Radiology/Procedures: Radiology/Procedures: [] Course & Med Decision Making: Course & Med Decision Making Pertinent Labs and Imaging studies reviewed. (See chart for details) [] Dragon Disclaimer: Dragon Disclaimer: This electronic medical record was generated, in whole or in part, using a voice recognition dictation system. Departure Departure Impression: Primary Impression: Nausea & vomiting Additional Impression: Abdominal pain Disposition: 01 HOME SELF CARE/HOMELESS Condition: STABLE Referrals: UNKNOWN PCP NAME (PCP) Patient Instructions: Nausea and Vomiting, [id number] Additional Instructions: Follow-up with your primary physician in 1 to 2 days. Return to the emergency department if you have any new or concerning findings. Scripts Nitrofurantoin Monohyd/M-Cryst (MACROBID 100 MG CAPSULE) 100 Mg Capsule 1 CAP PO BID, #10 CAP Prov: MATEO MONGE MD 06/10/20 Metoclopramide Hcl (REGLAN) 5 Mg Tablet 1 TAB PO PRN TID PRN for NAUSEA for 10 Days, #8 TAB 0 Refills 1 hour prior to procedure Prov: MATEO MONGE MD 06/10/20 MATEO MONGE MD Jun 10, 2020 08:24
[2020-06-10] MEDS ORDERED: ONDANSETRON PF 4 MG/2 ML VIAL. IV ONE (08:30)
[2020-06-10] MEDS ORDERED: FAMOTIDINE 20 MG/2 ML VIAL IVP ONE (08:30)
[2020-06-10 08:35] LABS: BASO # 0.1 x10^3/uL (0.0-0.2); BASO % 1 % (0-3); EOS # 0.1 x10^3/uL (0.0-0.7); EOS % 1 % (0-3); HEMATOCRIT 42.2 % (36.0-47.0); HEMOGLOBIN 14.6 g/dL (12.0-15.5); LYMPH # 1.6 x10^3/uL (1.0-4.8); LYMPH % 14 % (24-48); MEAN CORPUSCULAR HEMOGLOBIN 31 pg (25-35); MEAN CORPUSCULAR HGB CONC 35 g/dL (31-37); MEAN CORPUSCULAR VOLUME 89 fL (79-100); MONO # 0.6 x10^3/uL (0.0-1.1); MONO % 6 % (0-9); NEUT # 9.1 x10^3/uL (1.8-7.7); NEUT % 79 % (31-73); PLATELET COUNT 317 x10^3/uL (140-400); RED BLOOD COUNT 4.75 x10^6/uL (3.50-5.40); WHITE BLOOD COUNT 11.5 x10^3/uL (4.0-11.0)
[2020-06-10 08:44] LABS: CALCIUM 9.2 mg/dL (8.5-10.1); CREATININE 0.9 mg/dL (0.6-1.0); GFR 76.9; POTASSIUM 3.5 mmol/L (3.5-5.1)
[2020-06-10 08:46] LABS: CLARITY,URINE BLOODY; COLOR,URINE RED
[2020-06-10 08:48] LABS: BACTERIA,URINE MODERATE /HPF (0-FEW); RBC,URINE >40 /HPF (0-2)
[2020-06-10 08:52] LABS: ALBUMIN 4.2 g/dL (3.4-5.0); ALBUMIN/GLOBULIN RATIO 1.4 (1.0-1.7); TOTAL BILIRUBIN 0.6 mg/dL (0.2-1.0); TOTAL PROTEIN 7.2 g/dL (6.4-8.2)
[2020-06-10] MEDS ORDERED: IOHEXOL 300 MG/ML 100ML VIAL. IV ONE (09:15)
[2020-06-10 09:37] LABS: PREG TEST PT QUAL NEGATIVE (NEG)
[2020-06-10] MEDS ORDERED: METOCLOPRAMIDE HCL 10 MG/2 ML VIAL. IVP ONE (10:45)
[2020-06-10 10:55] VITALS: BP 139/62
[2020-06-10] MEDS ORDERED: METO5TAB55 PO (11:12)
[2020-06-10] MEDS ORDERED: LIDO:MAALOX 1:1 20 ML SINGLE DOSE. SWSW ONE (11:15)
[2020-06-10] MEDS ORDERED: NITR100C62 PO (11:17)
--- NOTE | 2020-06-10 13:33 | RAD ---
PQRS Compliance Statement: One or more of the following individualized dose reduction techniques were utilized for this examinat ion: 1. Automated exposure control 2. Adjustment of the mA and/or kV according to patient size 3. Use of iterative reconstruction technique CT abdomen/pelvis with contrast 06/10/2020 9:44 AM INDICATION: Abdominal pain, nausea and vomiting COMPARISON: CT abdomen/pelvis 12/27/2019 TECHNIQUE: Multiple axial CT images of the abdomen and pelvis were obtained after the intravenous adm inistration of 75 mL Omnipaque 300. Coronal and sagittal reformats are provided. FINDINGS: Lung bases are clear. Heart size is within normal limits. Focal hypoattenuation along the fissure of the ligamentum teres is suggestive of hepatic steatosis. No suspicious hepatic lesion is identified. Portal venous system is widely patent. Mild periportal edema. Gallbladder is present without adjacent inflammation. Spleen, bilateral adrenal glands and pancreas are normal in appearance. Abdominal aort a is normal in course and caliber. There are no pathologically enlarged lymph nodes in abdomen and pe lvis. There is no free fluid or free intraperitoneal air. Few scattered colonic diverticula are present. Appendix is normal in appearance. No bowel obstruction or inflammation. The kidneys enhance symmetrically. There is no suspicious renal mass. There is no hydronephrosis. The re are no suspected calculi within the kidneys, ureters or urinary bladder. Urinary bladder is within normal limits given degree of distention. Uterus and adnexa are normal by CT. No suspicious osseous abnormality is identified. IMPRESSION: No acute abnormality is identified in abdomen and pelvis. Electronically signed by: Gin Martines MD (06/10/2020 10:07 AM) [facility]
[2020-06-11] MEDS ORDERED: PROC10TA57 PO (14:56)
== END 2020-06-10 11:20 | disposition home or self-care (01) ==
LOC: ER 07:52
DX: R11.2 Nausea with vomiting, unspecified (principal); R10.10 Upper abdominal pain, unspecified; R20.8 Other disturbances of skin sensation; J45.909 Unspecified asthma, uncomplicated; E10.9 Type 1 diabetes mellitus without complications; G43.909 Migraine, unspecified, not intractable, without status migrainosus; F17.200 Nicotine dependence, unspecified, uncomplicated; F12.90 Cannabis use, unspecified, uncomplicated; Z98.890 Other specified postprocedural states
CPT/HCPCS: 36415; 74177; 80053; 81001; 83690; 84703; 85025; 87086; 96361; 96374; 96375; 99285; J2405; J2765; J3490; J7030; Q9967

== ENCOUNTER 2020-06-11 10:09 | Emergency (ER) | payer MEDICAID ==
[~2020-06-11] VITALS: Ht 160 cm; Wt 80.0 kg
[~2020-06-11 10:09] MED LIST changes: +METO5TAB55 PO; +NITR100C62 PO
[2020-06-11] MEDS ORDERED: LIDO:MAALOX 1:1 20 ML SINGLE DOSE. SWSW ONE (12:00)
[2020-06-11] MEDS ORDERED: AZITHROMYCIN 250 MG TABLET. PO ONE (12:00)
[2020-06-11] MEDS ORDERED: cefTRIAXone IV Push 1 GM VIAL. IVP ONE (12:00)
[2020-06-11] MEDS ORDERED: PROCHLORPERAZINE 10 MG/2 ML VIAL. IV ONE (12:00)
[2020-06-11] MEDS ORDERED: metroNIDAZOLE 500 MG TABLET PO ONE (12:00)
[2020-06-11] MEDS ORDERED: FAMOTIDINE 20 MG/2 ML VIAL IVP ONE (12:00)
[2020-06-11] MEDS ORDERED: IV NORMAL SALINE 1000ML BAG 1,000 ML IV ONE (12:00)
[2020-06-11 12:06] LABS: BILIRUBIN,URINE NEGATIVE (NEG); CLARITY,URINE TURBID; COLOR,URINE YELLOW; NITRITE,URINE NEGATIVE (NEG); PROTEIN,URINE NEGATIVE (NEG-TRACE); UROBILINOGEN,URINE 0.2 mg/dL (0.2 mg/dL)
[2020-06-11 12:14] LABS: BARBITURATES NEG (NEG); BENZODIAZEPINES NEG (NEG); CANNABINOIDS POS (NEG); COCAINE NEG (NEG); METHADONE NEG (NEG); OPIATES NEG (NEG); PHENCYCLIDINE NEG (NEG)
[2020-06-11 12:18] LABS: AMPHETAMINE/METHAMPHETAMINE NEG (NEG)
[2020-06-11 12:18] LABS: AMORPHOUS SEDIMENT,UR PRESENT /HPF; BACTERIA,URINE 0 /HPF (0-FEW); HYALINE CASTS, URINE OCCASIONAL /HPF; RBC,URINE 0 /HPF (0-2); WBC,URINE 0 /HPF (0-4)
[2020-06-11 12:24] LABS: CALCIUM 8.9 mg/dL (8.5-10.1); CREATININE 0.7 mg/dL (0.6-1.0); GFR 102.8; POTASSIUM 3.5 mmol/L (3.5-5.1)
--- NOTE | 2020-06-11 12:26 | PHYS DOC ---
Past Medical History Past Medical History: Asthma, Diabetes-Type I, Migraines, Seizure Additional Past Medical Histor: gestational diabetes (MARIANA CAPPS APRN) Past Surgical History: No Surgical History, Other Additional Past Surgical Histo: tongue (MARIANA CAPPS APRN) Smoking Status: Current Every Day Smoker Alcohol Use: Occasionally Drug Use: Marijuana (MARIANA CAPPS APRN) General Adult EDM: Chief Complaint: NAUSEA/VOMITING/DIARRHA HPI: HPI: Patient is a 25 year old female with history of asthma, diabetes type 1 on insulin, seizures, who presents to the ED today from home complaining of nausea and vomiting that began on June 08, 2020 which is 4 days ago. Patient is also complaining of a mild burning sensation in her abdomen. Symptoms began the same day with the nausea vomiting. Denies any fever, cough, congestion. She states she was seen at the [facility] on June 08, 2020 for the same complaint and was given Pepcid, famotidine and dicyclomine. She states she was also given a liter of fluid with no relief. She states she came to the ED yesterday and had IV fluids, nausea medicine, labs and CAT scan of the abdomen and pelvic which was negative. She states she was diagnosed with UTI. She was sent home on antibiotics. She states she has continued to have the same symptoms. She states she is concerned she could have an STD and would like to be tested and treated. Denies anything specifically elevating or exacerbating her symptoms. (MARIANA CAPPS APRN) Review of Systems: Review of Systems: Constitutional: Denies fever or chills. [] Eyes: Denies change in visual acuity. [] HENT: Denies nasal congestion or sore throat. [] Respiratory: Denies cough or shortness of breath. [] Cardiovascular: Denies chest pain or edema. [] GI: Reports abdominal pain, nausea and vomiting, denies bloody stools or diarrhea. [] : Reports concern for STDs. Denies dysuria. [] Musculoskeletal: Denies back pain or joint pain. [] Integument: Denies rash. [] Neurologic: Denies headache, focal weakness or sensory changes. [] Psychiatric: Denies depression or anxiety. [] (MARIANA CAPPS APRN) Heart Score: Risk Factors: Risk Factors: DM, Current or recent (<one month) smoker, HTN, HLP, family history of CAD, obesity. Risk Scores: Score 0 - 3: 2.5% MACE over next 6 weeks - Discharge Home Score 4 - 6: 20.3% MACE over next 6 weeks - Admit for Clinical Observation Score 7 - 10: 72.7% MACE over next 6 weeks - Early Invasive Strategies (MARIANA CAPPS APRN) Current Medications: Current Medications Medications (Trade) Dose Ordered Sig/Jack Start Time Stop Time Status Last Admin Dose Admin Azithromycin (Zithromax) 1,000 mg 1X ONCE 06/11/20 12:00 06/11/20 12:01 DC 06/11/20 12:03 1,000 MG Ceftriaxone Sodium (Rocephin) 1 gm 1X ONCE 06/11/20 12:00 06/11/20 12:01 DC 06/11/20 12:02 1 GM Famotidine (Pepcid Vial) 20 mg 1X ONCE 06/11/20 12:00 06/11/20 12:01 DC 06/11/20 12:02 20 MG Metronidazole (Flagyl) 2,000 mg 1X ONCE 06/11/20 12:00 06/11/20 12:01 DC 06/11/20 12:03 2,000 MG Multi-Ingredient Mouthwash/Gargle (Gi Cocktail) 20 ml 1X ONCE 06/11/20 12:00 06/11/20 12:01 DC 06/11/20 12:01 20 ML Prochlorperazine Edisylate (Compazine) 10 mg 1X ONCE 06/11/20 12:00 06/11/20 12:01 DC 06/11/20 12:02 10 MG Sodium Chloride 1,000 ml @ 1,000 mls/hr 1X ONCE 06/11/20 12:00 06/11/20 12:59 06/11/20 12:01 1,000 MLS/HR (MARIANA CAPPS OPERATION MANAGER) Allergies: Allergies: Allergies Coded Allergies Type Severity Reaction Last Updated Verified No Known Drug Allergies 01/28/17 No (MARIANA CAPPS APRN) Physical Exam: PE: Constitutional: Well developed, well nourished, no acute distress, non-toxic appearance. [] HENT: Normocephalic, atraumatic, bilateral external ears normal, oropharynx moist, no oral exudates, nose normal. [] Eyes: PERRLA, EOMI, conjunctiva normal, no discharge. [] Neck: Normal range of motion, no tenderness, supple, no stridor. [] Cardiovascular:Heart rate regular rhythm, no murmur [] Lungs & Thorax: Bilateral breath sounds clear to auscultation [] Abdomen: Bowel sounds normal, soft, no tenderness, no masses, no pulsatile masses. [] Skin: Warm, dry, no erythema, no rash. [] Back: No tenderness, no CVA tenderness. [] Extremities: No tenderness, no cyanosis, no clubbing, ROM intact, no edema. [] Neurologic: Alert and oriented X 3, normal motor function, normal sensory function, no focal deficits noted. [] Psychologic: Flat affect (MUTUNGA,MARIANA OPERATION MANAGER) Current Patient Data: Labs: Laboratory Tests Test 06/11/20 11:15 06/11/20 11:47 06/11/20 12:00 Glucose (Fingerstick) 231 mg/dL (70-99) H Urine Collection Type Unknown Urine Color Yellow Urine Clarity Turbid Urine pH 8.0 (<5.0-8.0) Urine Specific Rodney 1.020 (1.000-1.030) Urine Protein Negative mg/dL (NEG-TRACE) Urine Glucose (UA) 250 mg/dL (NEG) Urine Ketones (Stick) 40 mg/dL (NEG) Urine Blood Large (NEG) Urine Nitrite Negative (NEG) Urine Bilirubin Negative (NEG) Urine Urobilinogen Dipstick 0.2 mg/dL (0.2 mg/dL) Urine Leukocyte Esterase Negative (NEG) Urine RBC 0 /HPF (0-2) Urine WBC 0 /HPF (0-4) Urine Squamous Epithelial Cells Few /LPF Urine Amorphous Sediment Present /HPF Urine Bacteria 0 /HPF (0-FEW) Urine Hyaline Casts Occasional /HPF Urine Opiates Screen Neg (NEG) Urine Methadone Screen Neg (NEG) Urine Barbiturates Neg (NEG) Urine Phencyclidine Screen Neg (NEG) Urine Amphetamine/Methamphetamine Neg (NEG) Urine Benzodiazepines Screen Neg (NEG) Urine Cocaine Screen Neg (NEG) Urine Cannabinoids Screen Pos (NEG) Urine Ethyl Alcohol Neg (NEG) Vital Signs: Vital Signs Date Time Temp Pulse Resp B/P (MAP) Pulse Ox O2 Delivery O2 Flow Rate FiO2 06/11/20 10:50 98.6 82 16 145/95 (112) 98 Room Air 98.6 (MARIANA CAPPS APRN) EKG: EKG: [] (MARIANA CAPPS APRN) Radiology/Procedures: Radiology/Procedures: [] (MARIANA CAPPS APRN) Course & Med Decision Making: Course & Med Decision Making Pertinent Labs and Imaging studies reviewed. (See chart for details) This is a 25-year-old female patient with history of diabetes type 1, who presents to the ED today complaining of nausea vomiting and burning pain in her abdomen, symptoms began 4 days ago. Patient was seen in the ED yesterday and had a full work-up including a negative CAT scan of the abdomen and pelvis. She was also seen at a Hospital in [place] 4 days ago for the same complaint. Patient would like to be tested and treated for STDs. Treated for STDs. Patient's labs were negative for any acute findings, glucose was 238 with no anion gap. She was given a liter of fluid and Compazine. She states she feels much better. Patient was discharged to home. Provided instructions to follow-up with her own PCP. She was tested for COVID-19. Results were called to her when available (MARIANA CAPPS APRN) Dragon Disclaimer: Char Disclaimer: This electronic medical record was generated, in whole or in part, using a voice recognition dictation system. (MARIANA CAPPS APRN) Departure Departure Impression: Primary Impression: Nausea and vomiting Qualified Codes: R11.2 - Nausea with vomiting, unspecified Additional Impressions: Hyperglycemia Person under investigation for COVID-19 Disposition: 01 DC HOME SELF CARE/HOMELESS Condition: STABLE Referrals: UNKNOWN PCP NAME (PCP) followup with your doctor in the course of this week Patient Instructions: Hyperglycemia, Nausea and Vomiting, [id number] Additional Instructions: You were evaluated in the emergency room. We recommend you ensure you are using your insulin as ordered. Take the nausea medicine as needed. You were tested for COVID-19. We will call you with results when available quarantine yourself until you get results from us. You were treated for STDs. Do not have any intercourse for a week. We encourage you to contact all your partners, let them know you are treated for STDs and have them seek treatment 2. Scripts Prochlorperazine Maleate (Compazine) 10 Mg Tablet 1 TAB PO Q6HRS for 7 Days, #28 TAB 0 Refills Prov: MARIANA CAPPS APRN 06/11/20 Attending Signature Attending Signature I have reviewed the PA/PRESERVATIONIST's note and plan of care. I was available for consultation as needed during the patient's visit in the emergency department. I agree with the clinical impression, plan, and disposition. (ALCIRA BESS DO) MARIANA CAPPS APRN Jun 11, 2020 12:26 ALCIRA BESS DO Jun 11, 2020 18:33
[2020-06-11 12:32] LABS: ALBUMIN 3.9 g/dL (3.4-5.0); ALBUMIN/GLOBULIN RATIO 1.4 (1.0-1.7); MAGNESIUM 2.2 mg/dL (1.8-2.4); TOTAL BILIRUBIN 0.3 mg/dL (0.2-1.0); TOTAL PROTEIN 6.6 g/dL (6.4-8.2)
[2020-06-11 12:56] LABS: BASO # 0.1 x10^3/uL (0.0-0.2); BASO % 1 % (0-3); EOS % 0 % (0-3); HEMATOCRIT 40.8 % (36.0-47.0); HEMOGLOBIN 13.7 g/dL (12.0-15.5); LYMPH # 1.6 x10^3/uL (1.0-4.8); LYMPH % 14 % (24-48); MEAN CORPUSCULAR HEMOGLOBIN 30 pg (25-35); MEAN CORPUSCULAR HGB CONC 33 g/dL (31-37); MEAN CORPUSCULAR VOLUME 90 fL (79-100); MONO # 0.5 x10^3/uL (0.0-1.1); MONO % 5 % (0-9); NEUT # 9.1 x10^3/uL (1.8-7.7); NEUT % 81 % (31-73); PLATELET COUNT 288 x10^3/uL (140-400); RED BLOOD COUNT 4.56 x10^6/uL (3.50-5.40); RED CELL DISTRIBUTION WIDTH 13.1 % (11.5-14.5); WHITE BLOOD COUNT 11.3 x10^3/uL (4.0-11.0)
[2020-06-11 14:43] VITALS: BP 133/78
[2020-06-11] MEDS ORDERED: PROC10TA57 PO (14:56)
--- NOTE | 2020-06-13 09:52 | NUR ---
IP: Informed pt of negative COVID test. Pt remains ill. I advised her to contact her PCP for further care.
== END 2020-06-11 15:15 | disposition home or self-care (01) ==
LOC: ER 10:09
DX: R11.2 Nausea with vomiting, unspecified (principal); E10.65 Type 1 diabetes mellitus with hyperglycemia; Z20.818 Contact with and (suspected) exposure to other bacterial communicable diseases; J45.909 Unspecified asthma, uncomplicated; G43.909 Migraine, unspecified, not intractable, without status migrainosus; F17.200 Nicotine dependence, unspecified, uncomplicated; F12.90 Cannabis use, unspecified, uncomplicated; Z98.890 Other specified postprocedural states
CPT/HCPCS: 80053; 80307; 81001; 82962; 83690; 83735; 85025; 87491; 87591; 96361; 96374; 96375; 99285; C9803; G0480; J0696; J0780; J3490; J7030; U0003

== ENCOUNTER 2020-07-10 23:55 | Emergency (ER) | payer MEDICAID ==
[~2020-07-10] VITALS: Ht 160 cm; Wt 72.7 kg
[~2020-07-10 23:55] MED LIST changes: +PROC10TA57 PO
[2020-07-11 00:51] LABS: BASO # 0.1 x10^3/uL (0.0-0.2); BASO % 1 % (0-3); EOS # 0.3 x10^3/uL (0.0-0.7); EOS % 3 % (0-3); HEMATOCRIT 37.7 % (36.0-47.0); HEMOGLOBIN 12.7 g/dL (12.0-15.5); LYMPH # 3.1 x10^3/uL (1.0-4.8); LYMPH % 36 % (24-48); MEAN CORPUSCULAR HEMOGLOBIN 31 pg (25-35); MEAN CORPUSCULAR HGB CONC 34 g/dL (31-37); MEAN CORPUSCULAR VOLUME 91 fL (79-100); MONO # 0.7 x10^3/uL (0.0-1.1); MONO % 8 % (0-9); NEUT # 4.6 x10^3/uL (1.8-7.7); NEUT % 52 % (31-73); PLATELET COUNT 301 x10^3/uL (140-400); RED BLOOD COUNT 4.16 x10^6/uL (3.50-5.40); RED CELL DISTRIBUTION WIDTH 13.6 % (11.5-14.5); WHITE BLOOD COUNT 8.7 x10^3/uL (4.0-11.0)
--- NOTE | 2020-07-11 00:53 | ED.ADGEN ---
Past Medical History Past Medical History: Asthma, Diabetes-Type I, Migraines, Seizure Additional Past Medical Histor: gestational diabetes Past Surgical History: No Surgical History, Other Additional Past Surgical Histo: tongue Smoking Status: Current Every Day Smoker Alcohol Use: Occasionally Drug Use: Marijuana General Adult EDM: Chief Complaint: OVERDOSE HPI: HPI: Patient is 25-year-old female past medical history of diabetes and seizure disorder who presents to the emergency room after an accidental overdose. Patient was taking her night meds and is supposed to take for her for folic acid and one of her Lamictal. She accidentally took 4 of her Lamictal. She feels sleepy but otherwise normal. She called poison control who recommended that she come to the emergency room. She has no complaints. Review of Systems: Review of Systems: Complete ROS is negative unless otherwise documented in HPI Allergies: Allergies: Allergies Coded Allergies Type Severity Reaction Last Updated Verified No Known Drug Allergies 01/28/17 No Physical Exam: PE: General: Awake, alert, NAD. Well Nourished, well hydrated. Cooperative HEENT: Atraumatic, EOMI, PERRL, airway patent, moist oral mucosa Neck: Supple, trachea midline Respiratory: CTA bilaterally, normal effort, no wheezing/crackles CV: RRR, no murmur, cap refill <2 GI: Soft, nondistended, nontender, no masses MSK: No obvious deformities Skin: Warm, dry, intact Neuro: A&O x3, speech NL, sensory and motor grossly intact, no focal deficits Psych: Normal affect, normal mood, not suicidal or homicidal Current Patient Data: Labs: Laboratory Tests Test 07/11/20 00:24 White Blood Count 8.7 x10^3/uL (4.0-11.0) Red Blood Count 4.16 x10^6/uL (3.50-5.40) Hemoglobin 12.7 g/dL (12.0-15.5) Hematocrit 37.7 % (36.0-47.0) Mean Corpuscular Volume 91 fL (79-100) Mean Corpuscular Hemoglobin 31 pg (25-35) Mean Corpuscular Hemoglobin Concent 34 g/dL (31-37) Red Cell Distribution Width 13.6 % (11.5-14.5) Platelet Count 301 x10^3/uL (140-400) Neutrophils (%) (Auto) 52 % (31-73) Lymphocytes (%) (Auto) 36 % (24-48) Monocytes (%) (Auto) 8 % (0-9) Eosinophils (%) (Auto) 3 % (0-3) Basophils (%) (Auto) 1 % (0-3) Neutrophils # (Auto) 4.6 x10^3/uL (1.8-7.7) Lymphocytes # (Auto) 3.1 x10^3/uL (1.0-4.8) Monocytes # (Auto) 0.7 x10^3/uL (0.0-1.1) Eosinophils # (Auto) 0.3 x10^3/uL (0.0-0.7) Basophils # (Auto) 0.1 x10^3/uL (0.0-0.2) Sodium Level 138 mmol/L (136-145) Potassium Level 4.1 mmol/L (3.5-5.1) Chloride Level 105 mmol/L (98-107) Carbon Dioxide Level 29 mmol/L (21-32) Anion Gap 4 (6-14) L Blood Urea Nitrogen 11 mg/dL (7-20) Creatinine 1.1 mg/dL (0.6-1.0) H Estimated GFR (Cockcroft-Gault) 61.0 Glucose Level 143 mg/dL (70-99) H Calcium Level 8.9 mg/dL (8.5-10.1) Laboratory Tests 07/11/20 00:24 Laboratory Tests 07/11/20 00:24 Vital Signs: Vital Signs Date Time Temp Pulse Resp B/P (MAP) Pulse Ox O2 Delivery O2 Flow Rate FiO2 07/11/20 04:59 86 18 123/68 (86) 96 Room Air 07/11/20 00:00 98.2 98.2 EKG: EKG: [] Heart Score: Risk Factors: Risk Factors: DM, Current or recent (<one month) smoker, HTN, HLP, family history of CAD, obesity. Risk Scores: Score 0 - 3: 2.5% MACE over next 6 weeks - Discharge Home Score 4 - 6: 20.3% MACE over next 6 weeks - Admit for Clinical Observation Score 7 - 10: 72.7% MACE over next 6 weeks - Early Invasive Strategies Radiology/Procedures: Radiology/Procedures: [] Course & Med Decision Making: Course & Med Decision Making Pertinent Labs and Imaging studies reviewed. (See chart for details) Patient is a 25-year-old female who presents to the emergency room after accidental overdose. The big concern at this time would be sodium channel blockage causing seizures or cardiac arrhythmias. An EKG shows a normal QT at this time. Poison control has recommended that the patient be observed until 11 AM. 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 At that time we will repeat the EKG. Repeat EKG normal. Patient signed out AMA. Patient has requested to leave AGAINST MEDICAL ADVICE. I have discussed the benefits of staying for a full work up and the patient would like to leave. I discussed the risks of leaving including but not limited to , permenant end-organ damage, worsening of condition and patient stated understanding. Patient signed out against medical advice. Char Disclaimer: Char Disclaimer: This electronic medical record was generated, in whole or in part, using a voice recognition dictation system. Departure Departure Impression: Primary Impression: Accidental overdose Disposition: 07 AMA/ELMARK/LWBS Condition: STABLE Referrals: UNKNOWN PCP NAME (PCP) ODILIA SANCHEZ MD Jul 11, 2020 00:53
[2020-07-11 01:02] LABS: CALCIUM 8.9 mg/dL (8.5-10.1); CREATININE 1.1 mg/dL (0.6-1.0); POTASSIUM 4.1 mmol/L (3.5-5.1)
[2020-07-11 04:59] VITALS: BP 123/68
--- NOTE | 2020-07-12 10:49 | EKG ---
[facility] [address] [place] [address] Test Date: 2020-07-11 Test Time: 00:06:05 Pat Name: SONY MARQUEZ Department: Room: Gender: F Telecommunication Engineer: : [id number] Requested By: ODILIA SANCHEZ Order Number: [id number] Reading MD: Measurements Intervals Sh[place] Rate: 67 P: 46 [place]: 140 QRS: 49 QRSD: 78 T: 26 QT: 352 QTc: 374 Interpretive Statements SINUS RHYTHM ATRIAL PREMATURE COMPLEX(ES) OTHERWISE NORMAL ECG RI6.02 No previous ECG available for comparison
== END 2020-07-11 05:10 | disposition left against medical advice (07) ==
LOC: ER 23:55
DX: T42.6X1A Poisoning by other antiepileptic and sedative-hypnotic drugs, accidental (unintentional), initial encounter (principal); J45.909 Unspecified asthma, uncomplicated; E11.9 Type 2 diabetes mellitus without complications; G40.909 Epilepsy, unspecified, not intractable, without status epilepticus; G43.909 Migraine, unspecified, not intractable, without status migrainosus; F17.200 Nicotine dependence, unspecified, uncomplicated; F12.90 Cannabis use, unspecified, uncomplicated; Z98.890 Other specified postprocedural states; Y92.89 Other specified places as the place of occurrence of the external cause
CPT/HCPCS: 36415; 80048; 80175; 85025; 93005; 99285

== ENCOUNTER 2020-07-27 22:12 | Emergency (ER) | payer MEDICAID ==
[~2020-07-27] VITALS: Ht 170.2 cm; Wt 81.8 kg
[2020-07-27 22:45] LABS: BASO % 0 % (0-3); EOS % 0 % (0-3); HEMATOCRIT 40.7 % (36.0-47.0); HEMOGLOBIN 13.9 g/dL (12.0-15.5); LYMPH # 0.8 x10^3/uL (1.0-4.8); LYMPH % 5 % (24-48); MEAN CORPUSCULAR HEMOGLOBIN 31 pg (25-35); MEAN CORPUSCULAR HGB CONC 34 g/dL (31-37); MEAN CORPUSCULAR VOLUME 90 fL (79-100); MONO # 0.3 x10^3/uL (0.0-1.1); MONO % 2 % (0-9); NEUT # 14.6 x10^3/uL (1.8-7.7); NEUT % 93 % (31-73); PLATELET COUNT 322 x10^3/uL (140-400); RED BLOOD COUNT 4.51 x10^6/uL (3.50-5.40); RED CELL DISTRIBUTION WIDTH 13.4 % (11.5-14.5); WHITE BLOOD COUNT 15.8 x10^3/uL (4.0-11.0)
[2020-07-27 22:55] LABS: AMPHETAMINE/METHAMPHETAMINE NEG (NEG); BARBITURATES NEG (NEG); BENZODIAZEPINES NEG (NEG); CANNABINOIDS POS (NEG); COCAINE NEG (NEG); METHADONE NEG (NEG); OPIATES NEG (NEG); PHENCYCLIDINE NEG (NEG)
[2020-07-27 23:00] LABS: CREATININE 0.9 mg/dL (0.6-1.0); GFR 76.9; POTASSIUM 3.3 mmol/L (3.5-5.1)
[2020-07-27] MEDS ORDERED: IV NORMAL SALINE 1000ML BAG 1,000 ML IV SCH (23:00)
[2020-07-27] MEDS ORDERED: ONDANSETRON PF 4 MG/2 ML VIAL. IVP ONE (23:00)
[2020-07-27 23:06] LABS: ALBUMIN 4.4 g/dL (3.4-5.0); ALBUMIN/GLOBULIN RATIO 1.3 (1.0-1.7); TOTAL BILIRUBIN 0.7 mg/dL (0.2-1.0); TOTAL PROTEIN 7.8 g/dL (6.4-8.2)
[2020-07-27 23:08] LABS: % BANDS 1 % (0-9); % LYMPHS 6 % (24-48); % MONOS 1 % (0-10); % SEGS 92 % (35-66); PLT ESTIMATE ADEQUATE (ADEQUATE)
[2020-07-27 23:10] LABS: TOXIC GRANULATION SLIGHT
[2020-07-27] MEDS ORDERED: METOCLOPRAMIDE HCL 10 MG/2 ML VIAL. IVP ONE (23:30)
[2020-07-27] MEDS ORDERED: FAMOTIDINE 20 MG/2 ML VIAL IVP ONE (23:30)
[2020-07-28] MEDS ORDERED: IV NORMAL SALINE 1000ML BAG 1,000 ML IV ONE
--- NOTE | 2020-07-28 00:05 | RAD ---
Acute abdominal series portable: Reason for examination: Abdominal pain and vomiting. The heart size is normal. Mediastinum is unremarkable. Lung viera are clear. No acute abnormalities are seen. In the abdomen, there is no gross organomegaly. Psoas muscles are symmetric. The bowel gas pattern is nonspecific with no dilated bowel or evidence of obstruction. No abnormal calcifications are seen. N o acute bony abnormalities are evident. IMPRESSION: No acute cardiopulmonary disease. Nonspecific nonobstructive bowel gas pattern. Electronically signed by: Kitty Antunez MD (07/28/2020 12:03 AM) JENN
--- NOTE | 2020-07-28 00:20 | PHYS DOC ---
Past Medical History Past Medical History: Asthma, Diabetes-Type I, Migraines, Seizure, Other Additional Past Medical Histor: gestational diabetes (ANG FLOWERS APRN) Past Surgical History: Other Additional Past Surgical Histo: tongue repair (ANG FLOWERS APRN) Smoking Status: Current Some Day Smoker Alcohol Use: Occasionally Drug Use: Marijuana (ANG FLOWERS TIN POURER) General Adult EDM: Chief Complaint: NAUSEA/VOMITING/DIARRHA HPI: HPI: Patient is a 25 year old female who presents with nausea, vomiting, epigastric burning x 1 day. She states she smoked MJ a hour prior to arrival. She states she checks her blood sugars occasionally and takes her insulin. Rates her abdominal pain is an 8 out of 10. There is no radiation. Patient has a history of smoking, DKA, AMS, migraine, seizure, cholelithiasis, marijuana use, asthma. (ANG FLOWERS TIN POURER) Review of Systems: Review of Systems: Constitutional: Denies fever or chills. [] Eyes: Denies change in visual acuity. [] HENT: Denies nasal congestion or sore throat. [] Respiratory: Denies cough or shortness of breath. [] Cardiovascular: Denies chest pain or edema. [] GI: + Epigastric abdominal pain, +nausea, +vomiting, denies bloody stools or diarrhea. [] : Denies dysuria. [] Musculoskeletal: Denies back pain or joint pain. [] Integument: Denies rash. [] Neurologic: Denies headache, focal weakness or sensory changes. [] Endocrine: Denies polyuria or polydipsia. [] Lymphatic: Denies swollen glands. [] Psychiatric: Denies depression or anxiety. [] (ANG FLOWERS TIN POURER) Heart Score: Risk Factors: Risk Factors: DM, Current or recent (<one month) smoker, HTN, HLP, family history of CAD, obesity. Risk Scores: Score 0 - 3: 2.5% MACE over next 6 weeks - Discharge Home Score 4 - 6: 20.3% MACE over next 6 weeks - Admit for Clinical Observation Score 7 - 10: 72.7% MACE over next 6 weeks - Early Invasive Strategies (ANG FLOWERS TIN POURER) Current Medications: Current Medications Medications (Trade) Dose Ordered Sig/Jack Start Time Stop Time Status Last Admin Dose Admin Famotidine (Pepcid Vial) 20 mg 1X ONCE 07/27/20 23:30 07/27/20 23:31 DC 07/27/20 23:25 20 MG Metoclopramide HCl (Reglan Vial) 10 mg 1X ONCE 07/27/20 23:30 07/27/20 23:31 DC 07/27/20 23:24 10 MG Ondansetron HCl (Zofran) 4 mg 1X ONCE 07/27/20 23:00 07/27/20 23:01 DC 07/27/20 23:25 4 MG Sodium Chloride 1,000 ml @ 1,000 mls/hr 1X ONCE 07/28/20 00:00 07/28/20 00:59 (ANG FLOWERS APRN) Allergies: Allergies: Allergies Coded Allergies Type Severity Reaction Last Updated Verified No Known Drug Allergies 01/28/17 No (ANG FLOWERS APRN) Physical Exam: PE: Constitutional: Well developed, well nourished, no acute distress, non-toxic appearance. [] HENT: Normocephalic, atraumatic, bilateral external ears normal, oropharynx moist, no oral exudates, nose normal. [] Eyes: PERRLA, EOMI, conjunctiva normal, no discharge. [] Neck: Normal range of motion, no tenderness, supple, no stridor. [] Cardiovascular:Heart rate regular rhythm, no murmur [] Lungs & Thorax: Bilateral breath sounds clear to auscultation [] Abdomen: Bowel sounds normal, soft, epigastric tenderness, no masses, no pulsati le masses. [] Skin: Warm, dry, no erythema, no rash. [] Back: No tenderness, no CVA tenderness. [] Extremities: No tenderness, no cyanosis, no clubbing, ROM intact, no edema. [] Neurologic: Alert and oriented X 3, normal motor function, normal sensory function, no focal deficits noted. [] Psychologic: Affect normal, judgement normal, mood normal. [] (ANG FLOWERS APRN) Current Patient Data: Labs: Laboratory Tests Test 07/27/20 22:30 07/27/20 22:40 07/27/20 22:42 White Blood Count 15.8 x10^3/uL (4.0-11.0) H Red Blood Count 4.51 x10^6/uL (3.50-5.40) Hemoglobin 13.9 g/dL (12.0-15.5) Hematocrit 40.7 % (36.0-47.0) Mean Corpuscular Volume 90 fL (79-100) Mean Corpuscular Hemoglobin 31 pg (25-35) Mean Corpuscular Hemoglobin Concent 34 g/dL (31-37) Red Cell Distribution Width 13.4 % (11.5-14.5) Platelet Count 322 x10^3/uL (140-400) Neutrophils (%) (Auto) 93 % (31-73) H Lymphocytes (%) (Auto) 5 % (24-48) L Monocytes (%) (Auto) 2 % (0-9) Eosinophils (%) (Auto) 0 % (0-3) Basophils (%) (Auto) 0 % (0-3) Neutrophils # (Auto) 14.6 x10^3/uL (1.8-7.7) H Lymphocytes # (Auto) 0.8 x10^3/uL (1.0-4.8) L Monocytes # (Auto) 0.3 x10^3/uL (0.0-1.1) Eosinophils # (Auto) 0.0 x10^3/uL (0.0-0.7) Basophils # (Auto) 0.0 x10^3/uL (0.0-0.2) Segmented Neutrophils % 92 % (35-66) H Band Neutrophils % 1 % (0-9) Lymphocytes % 6 % (24-48) L Monocytes % 1 % (0-10) Toxic Granulation Slight Platelet Estimate Adequate (ADEQUATE) Sodium Level 138 mmol/L (136-145) Potassium Level 3.3 mmol/L (3.5-5.1) L Chloride Level 102 mmol/L (98-107) Carbon Dioxide Level 19 mmol/L (21-32) L Anion Gap 17 (6-14) H Blood Urea Nitrogen 12 mg/dL (7-20) Creatinine 0.9 mg/dL (0.6-1.0) Estimated GFR (Cockcroft-Gault) 76.9 BUN/Creatinine Ratio 13 (6-20) Glucose Level 206 mg/dL (70-99) H Calcium Level 10.0 mg/dL (8.5-10.1) Total Bilirubin 0.7 mg/dL (0.2-1.0) Aspartate Amino Transferase (AST) 15 U/L (15-37) Alanine Aminotransferase (ALT) 21 U/L (14-59) Alkaline Phosphatase 84 U/L (46-116) Total Protein 7.8 g/dL (6.4-8.2) Albumin 4.4 g/dL (3.4-5.0) Albumin/Globulin Ratio 1.3 (1.0-1.7) Lipase 55 U/L (73-393) L Urine Opiates Screen Neg (NEG) Urine Methadone Screen Neg (NEG) Urine Barbiturates Neg (NEG) Urine Phencyclidine Screen Neg (NEG) Urine Amphetamine/Methamphetamine Neg (NEG) Urine Benzodiazepines Screen Neg (NEG) Urine Cocaine Screen Neg (NEG) Urine Cannabinoids Screen Pos (NEG) Urine Ethyl Alcohol Neg (NEG) Acetone Level Neg (NEG) POC Urine HCG, Qualitative Hcg negative (Negative) Glucose (Fingerstick) 220 mg/dL (70-99) H Laboratory Tests 07/27/20 22:30 Laboratory Tests 07/27/20 22:30 Vital Signs: Vital Signs Date Time Temp Pulse Resp B/P (MAP) Pulse Ox O2 Delivery O2 Flow Rate FiO2 07/27/20 22:17 98.3 57 16 143/82 (102) 100 Room Air 98.3 (ANG FLOWERS APRN) EKG: EKG: [] (ANG FLOWERS APRN) Radiology/Procedures: Radiology/Procedures: [] Impression: [facility] [address] [place], [place] [id number] IMAGING REPORT Signed PATIENT: SONY MARQUEZ NACCOUNT: [id number] : 1995 LOCATION: ER AGE: 25 SEX: F EXAM STATUS: REG ER ORD. PHYSICIAN: ANG FLOWERS APRN REASON: ABD PAIN, VOMITING PROCEDURE: ACUTE ABDOMEN SERIES Acute abdominal series portable: Reason for examination: Abdominal pain and vomiting. The heart size is normal. Mediastinum is unremarkable. Lung viera are clear. No acute abnormalities are seen. In the abdomen, there is no gross organomegaly. Psoas muscles are symmetric. The bowel gas pattern is nonspecific with no dilated bowel or evidence of obstruction. No abnormal calcifications are seen. No acute bony abnormalities are evident. IMPRESSION: No acute cardiopulmonary disease. Nonspecific nonobstructive bowel gas pattern. Electronically signed by: Idalia Carrizales MD (07/28/2020 12:03 AM) [facility] DICTATED and SIGNED BY: IDALIA CARRIZALES MD DATE: 07/28/20 [id number] 0 (ANG FLOWERS APRN) Course & Med Decision Making: Course & Med Decision Making pertinent Labs and Imaging studies reviewed. (See chart for details) See HPI. Alert and oriented x4. Speaks in full complete sentences. Skin pink warm and dry. Abdomen is soft but tender to the epigastric. She states she is very sore from vomiting. Vital signs within normal limits. Lungs are clear to all station all lobes. Patient's urine is positive for marijuana use. Sugars 206 in the ED. Acetone negative. Patient is receiving 2 L of normal saline in the ED. She received Reglan, Zofran, Pepcid and states she is feeling better. 0045: Patient is signed off to Dr Jackson (ANG FLOWERS APRN) Course & Med Decision Making I assumed care of this patient at 0100. Briefly this is a 21-year-old female with a known past medical history of type 1 diabetes and history of DKA in the past presenting to the emergency department for new onset of nausea vomiting and abdominal pain. Patient was admitted under evidence of dehydration and elevated anion gap however appeared well. Patient was rehydrated and repeat labs demonstrate significant improvement of her symptoms. Patient was able to tolerate p.o. intake. At this time I feel the patient is safe to be discharged home and patient is requesting to (ADDIE JACKSON MD) Char Disclaimer: Char Disclaimer: This electronic medical record was generated, in whole or in part, using a voice recognition dictation system. (ANG FLOWERS APRN) Departure Departure Impression: Primary Impression: Acute gastroenteritis Disposition: 01 DC HOME SELF CARE/HOMELESS Condition: GOOD Referrals: UNKNOWN PCP NAME (PCP) Patient Instructions: Viral Gastroenteritis Additional Instructions: EMERGENCY DEPARTMENT GENERAL DISCHARGE INSTRUCTIONS Thank you for coming to [facility] Emergency Department (ED) today and trusting us with you care. We trust that you had a positive experience in our Emergency Department. If you wish to speak to the department management, you may call the Director at [phone]. YOUR FOLLOW UP INSTRUCTIONS ARE FOLLOWS: 1. Do you have a private Doctor? If you do not have a private doctor, please ask for a resource list of physicians or clinics that may be able to assist you with follow up care. 2. The Emergency Physicain has interpreted your x-rays. The X-Ray specialist will also review them. If there is a change in the findings, you will be notified in 48 hours when at all possible. 3. A lab test or culture has been done, your results will be reviewed and you will be notified if you need a change in treatment. ADDITIONAL INSTRUCTIONS AND INFORMATION: 1. Your care today has been supervised by a physician who is specially trained in emergency care. Many problems require more than one evaluation for a complete diagnosis and treatment. We recommend that you schedule your follow up appointment as recommended to ensure complete treatment of you illness or injury. If you are unable to obtain follow up care and continue to have a problem, or if your condition worsens, we recommend that you return to the ED. 2. We are not able to safely determine your condition over the phone nor are we able to give sound medical advice over the phone. For these safety reasons, if you call for medical advice we will ask you to come to the ED for further evaluation. 3. If you have any questions regarding these discharge instructions please call the ED at [phone]. SAFETY INFORMATION: In the interest of safety, wellness, and injury prevention; we encourage you to wear your sealbelt, if you smoke; quite smoking, and we encourage family to use a protective helmet for bicycling and other sporting events that present an increased risk for head injury. IF YOUR SYMPTOMS WORSEN OR NEW SYMPTOMS DEVELOP, OR YOU HAVE CONCERNS ABOUT YOUR CONDITION; OR IF YOUR CONDITION WORSENS WHILE YOU ARE WAITING FOR YOUR FOLLOW UP A PPOINTMENT; EITHER CONTACT YOUR PRIMARY CARE DOCTOR, THE PHYSICIAN WHOSE NAME AND NUMBER YOU WERE Arabella TSAI, OR RETURN TO THE ED IMMEDIATELY. Scripts Ondansetron Hcl (ZOFRAN) 4 Mg Tablet 1 TAB PO PRN Q6-8HRS for nausea, #12 TAB Prov: ADDIE JACKSON MD 07/28/20 ANG FLOWERS APRN Jul 28, 2020 00:20 ADDIE JACKSON MD Jul 28, 2020 03:34
[2020-07-28 00:51] LABS: BILIRUBIN,URINE NEGATIVE (NEG); CLARITY,URINE CLEAR; COLOR,URINE AMBER; NITRITE,URINE NEGATIVE (NEG); PROTEIN,URINE 30 mg/dL (NEG-TRACE); UROBILINOGEN,URINE 0.2 mg/dL (0.2 mg/dL)
[2020-07-28 00:59] LABS: BACTERIA,URINE FEW /HPF (0-FEW); RBC,URINE RARE /HPF (0-2)
[2020-07-28 03:09] LABS: CALCIUM 8.5 mg/dL (8.5-10.1); CREATININE 0.8 mg/dL (0.6-1.0); GFR 88.1; POTASSIUM 3.8 mmol/L (3.5-5.1)
[2020-07-28 03:15] LABS: ALBUMIN 3.4 g/dL (3.4-5.0); ALBUMIN/GLOBULIN RATIO 1.3 (1.0-1.7); TOTAL BILIRUBIN 0.5 mg/dL (0.2-1.0); TOTAL PROTEIN 6.1 g/dL (6.4-8.2)
[2020-07-28 03:29] VITALS: BP 115/72
[2020-07-28] MEDS ORDERED: ONDA4TAB7 PO (03:32)
== END 2020-07-28 03:59 | disposition home or self-care (01) ==
LOC: ER 22:12
DX: K52.9 Noninfective gastroenteritis and colitis, unspecified (principal); J45.909 Unspecified asthma, uncomplicated; E10.9 Type 1 diabetes mellitus without complications; G43.909 Migraine, unspecified, not intractable, without status migrainosus; F17.200 Nicotine dependence, unspecified, uncomplicated
CPT/HCPCS: 36415; 74022; 80053; 80307; 81001; 81025; 82010; 82962; 83605; 83690; 85007; 85025; 87086; 96361; 96374; 96375; 99285; J2405; J2765; J3490; J7030

== ENCOUNTER 2021-03-27 08:59 | Emergency (ER) | payer MEDICAID ==
[~2021-03-27] VITALS: Ht 160 cm; Wt 68.0 kg
[2021-03-27] MEDS ORDERED: FAMOTIDINE 20 MG/2 ML VIAL IVP ONE (10:15)
[2021-03-27] MEDS ORDERED: METOCLOPRAMIDE HCL 10 MG/2 ML VIAL. IVP ONE (10:15)
[2021-03-27] MEDS ORDERED: IV NORMAL SALINE 1000ML BAG 1,000 ML IV SCH (10:15)
--- NOTE | 2021-03-27 10:24 | PHYS DOC ---
Past Medical History Past Medical History: Asthma, Diabetes-Type I, Migraines, Seizure, Other Additional Past Medical Histor: gestational diabetes (ANG FLOWERS APRN) Past Surgical History: Other Additional Past Surgical Histo: tongue repair "I bit my tongue in half" (ANG FLOWERS APRN) Smoking Status: Current Some Day Smoker Alcohol Use: Occasionally Drug Use: Marijuana (ANG FLOWERS APRN) General Adult EDM: Chief Complaint: NAUSEA/VOMITING/DIARRHEA HPI: HPI: Patient is a 26 year old female who presents with lost her glucose meter 3 weeks ago and is noncompliant with her diabetes medications. She states last night she began having some dizziness, epigastric pain, nausea and vomiting so she dosed herself 2 units of insulin but it did not help. When asked patient why she is thinking her insulin she states " I do not know". She rates her epigastric pain at a 9 out of 10. She has not been vaccinated for Covid. She has a history of diabetes type 1, seizures, asthma, migraines, some day smoker. (ANG FLOWERS ASSISTANT PROFESSOR OF BIOLOGY) Review of Systems: Review of Systems: Constitutional: Denies fever or chills. [] Eyes: Denies change in visual acuity. [] HENT: Denies nasal congestion or sore throat. [] Respiratory: Denies cough or +shortness of breath. [] Cardiovascular: Denies chest pain or edema. [] GI: + Epigastric abdominal pain, +nausea, +vomiting, denies bloody stools or diarrhea. [] : Denies dysuria. [] Musculoskeletal: Denies back pain or joint pain. [] Integument: Denies rash. [] Neurologic: Denies headache, focal weakness or sensory changes. + Dizziness [] Endocrine: Denies polyuria or polydipsia. [] Lymphatic: Denies swollen glands. [] Psychiatric: Denies depression or anxiety. [] (ANG FLOWERS APRN) Heart Score: C/O Chest Pain: No (ANG FLOWERS APRN) Current Medications: Current Medications Medications (Trade) Dose Ordered Sig/Jack Start Time Stop Time Status Last Admin Dose Admin Sodium Chloride 1,000 ml @ 1,000 mls/hr Q1H 03/27/21 10:15 03/27/21 11:14 UNV (ANG FLOWERS APRN) Allergies: Allergies: Allergies Coded Allergies Type Severity Reaction Last Updated Verified No Known Drug Allergies 01/28/17 No (ANG FLOWERS APRN) Physical Exam: PE: Constitutional: Well developed, well nourished, no acute distress, non-toxic appearance. [] HENT: Normocephalic, atraumatic, bilateral external ears normal, oropharynx moist, no oral exudates, nose normal. [] Eyes: PERRLA, EOMI, conjunctiva normal, no discharge. [] Neck: Normal range of motion, no tenderness, supple, no stridor. [] Cardiovascular:Heart rate regular rhythm, no murmur [] Lungs & Thorax: Bilateral breath sounds clear to auscultation [] Abdomen: Bowel sounds normal, soft, epigastric tenderness, no masses, no pulsatile masses. [] Skin: Warm, dry, no erythema, no rash. [] Back: No tenderness, no CVA tenderness. [] Extremities: No tenderness, no cyanosis, no clubbing, ROM intact, no edema. [] Neurologic: Alert and oriented X 3, normal motor function, normal sensory function, no focal deficits noted. [] Psychologic: Affect normal, judgement normal, mood normal. [] (ANG FLOWERS APRN) EKG: EK and read by Dr. Bess is sinus rhythm and no STEMI (ANG FLOWERS APRN) Radiology/Procedures: Radiology/Procedures: [] Impression: [facility] [address] [place] [address] IMAGING REPORT Signed PATIENT: SONY MARQUEZ NACCOUNT: [id number] : 1995 LOCATION: ER AGE: 26 SEX: F EXAM STATUS: PRE ER ORD. PHYSICIAN: ANG FLOWERS APRN REASON: soa PROCEDURE: PORTABLE CHEST 1V EXAMINATION: Chest radiograph. VIEWS: Single view COMPARISON: 07/27/2020 INDICATION:26 years, Female, shortness of breath. FINDINGS: Normal cardiomediastinal silhouette. No focal consolidation. No pleural effusion or pneumothorax. No acute osseous process. IMPRESSION: No acute cardiopulmonary process. Electronically signed by: Yolette Peng MD (03/27/2021 10:39 AM) [facility] DICTATED and SIGNED BY: YOLETTE PENG MD DATE: 03/27/21 [id number] [facility] [address] [place] [address] IMAGING REPORT Signed PATIENT: SONY MARQUEZ NACCOUNT: [id number] : 1995 LOCATION: ER AGE: 26 SEX: F EXAM STATUS: REG ER ORD. PHYSICIAN: ANG FLOWERS APRN REASON: Abdomen pain, vomiting PROCEDURE: CT ABD PELV W/ IV CONTRST ONLY EXAMINATION: CT abdomen and pelvis with IV contrast. INDICATION:26 years, Female, abdominal pain. TECHNIQUE: Axial CT images of the abdomen and pelvis were obtained. Coronal and sagittal reformatted performed. COMPARISON: 06/10/2020. Exposure: One or more of the following individualized dose reduction techniques were utilized for this examination: 1. Automated exposure control 2. Adjustment of the mA and/or kV according to patient size 3. Use of iterative reconstruction technique. FINDINGS: LOWER CHEST: Unremarkable. ABDOMEN/PELVIS: Normal size and morphology of the liver with homogeneous enhancement. Focal fat infiltration adjacent to falciform ligament, unchanged. Subcentimeter hypodensities in right hepatic lobe, too small to characterize. Gallbladder, biliary ducts, spleen and pancreas are unremarkable. No adrenal nodule. No hydronephrosis or nephrolithiasis in either kidney. No bowel obstruction or wall thickening. Partially visualized appendix appears unremarkable. No pericecal fat stranding. Normal caliber abdominal aorta. No lymphadenopathy in the abdomen or pelvis by size criteria. No ascites or pneumoperitoneum. Unremarkable urinary bladder and uterus. No suspicious pelvic masses. MUSCULOSKELETAL: No acute osseous process. IMPRESSION: No acute intra-abdominal process. Electronically signed by: Yolette Peng MD (03/27/2021 12:10 PM) [facility] DICTATED and SIGNED BY: YOLETTE PENG MD DATE: 03/27/21 [id number] 0 (ANG FLOWERS APRN) Course & Med Decision Making: Course & Med Decision Making Pertinent Labs and Imaging studies reviewed. (See chart for details) COVID-19 CRITERIA: The patient was evaluated during the global COVID-19 pandemic, and that diagnosis was suspected/considered upon their initial presentation. Their evaluation, treatment and testing was consistent with current guidelines for patients who present with complaints or symptoms that may be related to COVID-19. See HPI. Alert and oriented x4. Ambulatory steady gait. Speaks in full clear sentences. Abdomen is soft but tender the epigastric area. Skin pink warm and dry. Mucous membranes are moist. CT showed no acute findings. Blood work generally unremarkable. Patient is keeping down fluids during p.o. challenge. I have ordered 2 bags of normal saline for her here in the ED for hydration. [] (ANG FLOWERS APRN) Dragon Disclaimer: Dragon Disclaimer: This electronic medical record was generated, in whole or in part, using a voice recognition dictation system. (ANG FLOWERS APRN) COVID-19 Patient Risks: Age 65 or older: No Sign of co-morbidity: No Exp to person + for COVID: No Travel from affected area: No Lower respiratory symptoms: Yes Fever: No Other: Yes (N,V) (ANG FLOWERS APRN) PPE Use: Full PPE with N95 mask or PAPR: Yes (ANG FLOWERS APRN) Departure Departure Impression: Primary Impression: Abdominal pain Qualified Codes: R10.13 - Epigastric pain Additional Impressions: Nausea & vomiting Qualified Codes: R11.2 - Nausea with vomiting, unspecified Marijuana abuse Disposition: 01 HOME / SELF CARE / HOMELESS Condition: STABLE Referrals: UNKNOWN PCP NAME (PCP) Patient Instructions: Cyclic Vomiting Syndrome, Marijuana Abuse-Brief, Nausea and Vomiting Additional Instructions: Follow-up with your primary care provider. Stop smoking marijuana as this is causing you to vomit. Drink plenty of fluids. Take all of your medications as they are as prescribed. Scripts Metoclopramide Hcl (REGLAN) 5 Mg Tablet 1 TAB PO TID, #6 TAB 0 Refills Prov: ANG FLOWERS APRN 03/27/21 Attending Signature Attending Signature I have reviewed the PA/MIXING MACHINE ATTENDANT's note and plan of care. I was available for consultation as needed during the patient's visit in the emergency department. I agree with the clinical impression, plan, and disposition. (ALCIRA BESS DO) ANG FLOWERS APRN Mar 27, 2021 10:24 ALCIRA BESS DO Mar 28, 2021 13:57
[2021-03-27 10:37] LABS: BILIRUBIN,URINE NEGATIVE (NEG); CLARITY,URINE CLEAR; COLOR,URINE AMBER; NITRITE,URINE NEGATIVE (NEG); PROTEIN,URINE >=300 mg/dL (NEG-TRACE); UROBILINOGEN,URINE 0.2 mg/dL (0.2 mg/dL)
--- NOTE | 2021-03-27 10:41 | RAD ---
EXAMINATION: Chest radiograph. VIEWS: Single view COMPARISON: 07/27/2020 INDICATION:26 years, Female, shortness of breath. FINDINGS: Normal cardiomediastinal silhouette. No focal consolidation. No pleural effusion or pneumothorax. No acute osseous process. IMPRESSION: No acute cardiopulmonary process. Electronically signed by: Mykel Peng MD (03/27/2021 10:39 AM) [facility]
[2021-03-27 10:49] LABS: BARBITURATES NEG (NEG); BENZODIAZEPINES NEG (NEG); CANNABINOIDS POS (NEG); COCAINE NEG (NEG); METHADONE NEG (NEG); OPIATES NEG (NEG); PHENCYCLIDINE NEG (NEG)
--- NOTE | 2021-03-27 10:49 | EKG ---
[facility] [address] [place] [address] Test Date: 2021-03-27 Test Time: 10:29:39 Pat Name: SONY MARQUEZ Department: Room: Gender: F Administrative Assistant Coordinator: : 1995 Requested By: ANG FLOWERS Order Number: [id number] Reading MD: Measurements Intervals [place] Rate: 73 P: 90 MS: 104 QRS: 66 QRSD: 94 T: 36 QT: 392 QTc: 436 Interpretive Statements Cannot analyze ECG CHEST LEAD(S) MISSING! (Measurements might be questionable) RI6.02 No previous ECG available for comparison
[2021-03-27 10:51] LABS: AMPHETAMINE/METHAMPHETAMINE NEG (NEG)
[2021-03-27 10:53] LABS: CALCIUM 9.8 mg/dL (8.5-10.1); CREATININE 0.9 mg/dL (0.6-1.0); GFR 76.3; POTASSIUM 3.5 mmol/L (3.5-5.1)
[2021-03-27 10:59] LABS: ALBUMIN 4.8 g/dL (3.4-5.0); ALBUMIN/GLOBULIN RATIO 1.4 (1.0-1.7); TOTAL BILIRUBIN 0.8 mg/dL (0.2-1.0); TOTAL PROTEIN 8.3 g/dL (6.4-8.2)
[2021-03-27 11:07] LABS: BASO % 0 % (0-3); EOS % 0 % (0-3); HEMATOCRIT 45.2 % (36.0-47.0); HEMOGLOBIN 15.4 g/dL (12.0-15.5); LYMPH # 1.1 x10^3/uL (1.0-4.8); LYMPH % 8 % (24-48); MEAN CORPUSCULAR HEMOGLOBIN 31 pg (25-35); MEAN CORPUSCULAR HGB CONC 34 g/dL (31-37); MEAN CORPUSCULAR VOLUME 91 fL (79-100); MONO # 0.9 x10^3/uL (0.0-1.1); MONO % 6 % (0-9); NEUT # 12.7 x10^3/uL (1.8-7.7); NEUT % 86 % (31-73); PLATELET COUNT 332 x10^3/uL (140-400); RED BLOOD COUNT 4.96 x10^6/uL (3.50-5.40); RED CELL DISTRIBUTION WIDTH 13.4 % (11.5-14.5); WHITE BLOOD COUNT 14.8 x10^3/uL (4.0-11.0)
[2021-03-27 11:23] LABS: BACTERIA,URINE FEW /HPF (0-FEW); RBC,URINE 0 /HPF (0-2)
[2021-03-27] MEDS ORDERED: IOHEXOL 300 MG/ML 100ML VIAL. IV ONE (11:30)
[2021-03-27] MEDS ORDERED: CONTRAST GIVEN. MC PRN (11:45)
--- NOTE | 2021-03-27 12:12 | RAD ---
EXAMINATION: CT abdomen and pelvis with IV contrast. INDICATION:26 years, Female, abdominal pain. TECHNIQUE: Axial CT images of the abdomen and pelvis were obtained. Coronal and sagittal reformatted performed. COMPARISON: 06/10/2020. Exposure: One or more of the following individualized dose reduction techniques were utilized for thi s examination: 1. Automated exposure control 2. Adjustment of the mA and/or kV according to patient size 3. Use of iterative reconstruction technique. FINDINGS: LOWER CHEST: Unremarkable. ABDOMEN/PELVIS: Normal size and morphology of the liver with homogeneous enhancement. Focal fat infiltration adjacent to falciform ligament, unchanged. Subcentimeter hypodensities in right hepatic lobe, too small to ch aracterize. Gallbladder, biliary ducts, spleen and pancreas are unremarkable. No adrenal nodule. No h ydronephrosis or nephrolithiasis in either kidney. No bowel obstruction or wall thickening. Partially visualized appendix appears unremarkable. No peric ecal fat stranding. Normal caliber abdominal aorta. No lymphadenopathy in the abdomen or pelvis by si ze criteria. No ascites or pneumoperitoneum. Unremarkable urinary bladder and uterus. No suspicious p elvic masses. MUSCULOSKELETAL: No acute osseous process. IMPRESSION: No acute intra-abdominal process. Electronically signed by: Mykel Peng MD (03/27/2021 12:10 PM) [facility]
[2021-03-27] MEDS ORDERED: IV NORMAL SALINE 1000ML BAG 1,000 ML IV ONE (12:15)
[2021-03-27 12:47] VITALS: BP 152/86
[2021-03-27] MEDS ORDERED: METO5TAB55 PO (13:12)
--- NOTE | 2021-03-27 16:05 | NUR ---
IP: Patient notified of negative COVID19 test result. Verbalized understanding.
--- NOTE | 2021-03-28 04:29 | EKG ---
[facility] [address] [place] [address] Test Date: 2021-03-27 Test Time: 10:32:22 Pat Name: SONY MARQUEZ Department: Room: Gender: F Importer Or Exporter: : 1995 Requested By: ANG FLOWERS Order Number: [id number] Reading MD: Measurements Intervals [place] Rate: 66 P: 56 OR: 114 QRS: 64 QRSD: 86 T: 42 QT: 394 QTc: 415 Interpretive Statements SINUS RHYTHM NORMAL ECG RI6.02 Compared to ECG 03/27/2021 10:31:34 No significant changes
== END 2021-03-27 13:24 | disposition home or self-care (01) ==
LOC: ER 08:59
DX: R10.13 Epigastric pain (principal); Z20.822 Contact with and (suspected) exposure to COVID-19; R11.2 Nausea with vomiting, unspecified; F12.10 Cannabis abuse, uncomplicated; R42 Dizziness and giddiness; J45.909 Unspecified asthma, uncomplicated; E10.9 Type 1 diabetes mellitus without complications; G43.909 Migraine, unspecified, not intractable, without status migrainosus; F17.200 Nicotine dependence, unspecified, uncomplicated
CPT/HCPCS: 36415; 71045; 74177; 80053; 80307; 81001; 81025; 82010; 83690; 83735; 85025; 87426; 93005; 96361; 96374; 96375; 99285; J2765; J3490; J7030; Q9967; U0003; U0005